=== PATIENT | female | born 1940 | race Caucasian/White ===

== ENCOUNTER 2017-02-04 03:34 | Emergency (ER) | payer OTHER ==
[~2017-02-04] VITALS: Ht 165.1 cm; Wt 88.5 kg
[~2017-02-04 03:34] MED LIST: ADVAIR HFA 45MC1 AER NASAL; ALBUTEROL2.5 MG/0.5 INH; AMLODIPINE BESY10 MG PO; AMOXICILLIN 50500 M1; ASPIRIN325 PO; ATENOLOL 25 MG25 M1; ATENOLOL 25 MG25 M1 PO; AVAPRO75 MG PO; BISACODYL SUPP10 MG RECTAL; CAPOTEN; CAPOTEN 50MG TA50 MG PO; CEFAZOLIN-2 GM/50 ML IV; CELEXA 20 MG TA20 M1 PO; CEPACOL SORE T1 EAC7 PO; CIPROFLOXACIN500 M1 PO; COLACE100 MG PO; COZAAR 50 MG TA50 M2 PO; DEXTROSE 5025 GM/SYR IV PUSH; DICLOFENAC SODI75 M1; DICLOFENAC SODI75 MG PO; DICLOFENAC SODIUM PO; DULERA 100 MCG/13 GM INH; ENOXAPARIN40 MG/0.1 SUBQ; FLAGYL500 MG PO; FLEXERIL PO; GABAPENTIN100 MG PO; GLIPIZIDE ER5 MG PO; GLUCAGEN1 MG IM; GLUCOPHAGE1000 MG; GLUCOSE1 EACH PO; GLUCOSE15 GM/59 M PO; HYDROCODONE-AP1 EAC6 PO; INVOKANA300 MG PO; IRBESARTAN-HCT1 EAC1 PO; IRBESARTAN300 MG PO; LANTUS SUBQ; LANTUS100 UNIT/M SUBQ; LANTUSSOLASTAR SUBQ; LEVEMIR SUBQ; LIPITOR10 MG PO; LIPITOR40 MG PO; LOPRESSOR100 M1 PO; LOPRESSOR100 MG PO; LOPRESSOR25; MAG-AL PLUS SUS30 ML PO; MAG-OXIDE400 MG PO; MECLIZINE HCL25 M1 PO; MEDROL4 MG PO; METOPROLOL; MILK OF MA2400 MG/10 PO; NEUROTIN; NORCO 5-325 TA1 EACH PO; NORFLEX100 MG PO; NOVOLOG100 UNIT/1 SUBQ; OMEPRAZOLE20 M2 PO; OMEPRAZOLE40 MG PO; ONDANSETRON HCL4 M2 PO; PANTOPRAZOLE SO40 M1 PO; PERCOCET PO; PLAVIX 75 MG TA75 M1 PO; PRAVACHOL; PRAVACHOL 20 MG20 M1 PO; PRILOSEC20 MG PO; PROAIR HFA8.5 GM INH; PROMETHAZINE; QVAR; QVAR HFA 440 MCG/UN1 INH; SENNA8.6 MG PO; SIMVASTATIN20 MG PO; TAGAMENT PO; TAGAMETTAB; TOPROL XL100 MG PO; TRAMADOL 50 MG50 MG PO; TYLENOL325 MG PO; ULTRAM 50MG TAB50 MG PO; VOLTAREN 50MG T50 MG PO; VOLTAREN75 MG PO; [UNRECOGNIZED DRUG - OTHER] INH; dulera; tramadol
[2017-02-04] MEDS ORDERED: MOBIC15 MG PO (03:44)
[2017-02-04] MEDS ORDERED: DICLOFENAC SODI25 MG PO (03:44)
[2017-02-04] MEDS ORDERED: NEURONTIN 300300 M1 PO (03:45)
[2017-02-04 04:22] LABS: ABSOLUTE NEUTROPHILS 4.8 thou/uL (1.4-8.2); BASOPHILS 1.2 % (0.0-2.0); EOSINOPHILS 5.7 % (0.0-3.0); HEMOGLOBIN 11.8 gm/dL (12.0-15.0); MCHC 33.7 g/dL (28.0-37.0); MCV 86.2 fL (80.0-100.0); MONOCYTES 6.3 % (1.0-8.0); PLATELET COUNT 276 thou/uL (150-400); POLYS 44.8 % (36.0-66.0); RBC 4.06 mil/uL (4.20-5.00); RDW 15.5 % (10.5-14.5); WBC 10.8 thou/uL (4.0-11.0)
[2017-02-04 04:27] LABS: MANUAL DIFF NO
[2017-02-04 04:34] LABS: CALCIUM 8.7 mg/dL (8.5-10.1); CREATININE 1.3 mg/dL (0.6-1.3); POTASSIUM 3.9 mmol/L (3.5-5.1)
[2017-02-04 04:39] LABS: ALBUMIN 3.3 g/dL (3.4-5.0); TOTAL BILIRUBIN 0.3 mg/dL (<0.1-1.0)
[2017-02-04] MEDS ORDERED: ZOFRAN ODT4 MG PO (04:47)
[2017-02-04 04:59] VITALS: BP 113/47
== END 2017-02-04 05:18 | disposition home or self-care (01) ==
LOC: ER 03:34
PROVIDERS: Emergency Medicine
DX: J18.8 Other pneumonia, unspecified organism (principal); E11.22 Type 2 diabetes mellitus with diabetic chronic kidney disease; I12.0 Hypertensive chronic kidney disease with stage 5 chronic kidney disease or end stage renal disease; N18.3 Chronic kidney disease, stage 3 (moderate); J45.909 Unspecified asthma, uncomplicated; Z86.73 Personal history of transient ischemic attack (TIA), and cerebral infarction without residual deficits; Z95.5 Presence of coronary angioplasty implant and graft; Z85.41 Personal history of malignant neoplasm of cervix uteri; Z90.710 Acquired absence of both cervix and uterus; Z86.79 Personal history of other diseases of the circulatory system; E78.5 Hyperlipidemia, unspecified; Z88.1 Allergy status to other antibiotic agents; Z91.018 Allergy to other foods; Z91.010 Allergy to peanuts; Z88.8 Allergy status to other drugs, medicaments and biological substances; F10.99 Alcohol use, unspecified with unspecified alcohol-induced disorder

== ENCOUNTER 2017-05-17 17:14 | Emergency (ER) | payer OTHER ==
[~2017-05-17] VITALS: Ht 165.1 cm; Wt 81.7 kg
--- NOTE | ~2017-05-17 | EKG ---
[address] [place] [address] ELECTROCARDIOGRAM REPORT Name: HOA LUNA Room #: [facility]#: [id number] Admission: 05/17/17 Attend Phys: Discharge: 05/17/17 Date of : 44 Report #: [id number] THIS REPORT FOR: //name// [facility] ED Test Date: 2017-05-17 Test Time: 17:34:30 Pat Name: HOA LUNA Department: Room: Gender: F Custodial Supervisor: [id number] : 1940 Requested By: Bessie Smith Order Number: [id number] MD: Efrain Ndiaye Measurements Intervals [place] Rate: 69 P: 66 [place]: 186 QRS: 21 QRSD: 91 T: 58 QT: 412 QTc: 442 Interpretive Statements Sinus rhythm Borderline low voltage, extremity leads Compared to ECG 01/02/2016 07:50:14 Myocardial infarct finding no longer present Electronically Signed On 05-18-2017 8:12:17 CDT by Efrain Ndiaye [email or web address] <ELECTRONICALLY SIGNED> By: Efrain Ndiaye MD 07/09/24 812 1734 173 Efrain Ndiaye MD /EDOUARD
[~2017-05-17 17:14] MED LIST changes: +DICLOFENAC SODI25 MG PO; +MOBIC15 MG PO; +NEURONTIN 300300 M1 PO; +ZOFRAN ODT4 MG PO
[2017-05-17 18:53] LABS: ABSOLUTE NEUTROPHILS 7.2 thou/uL (1.4-8.2); BASOPHILS 0.8 % (0.0-2.0); EOSINOPHILS 2.7 % (0.0-3.0); HEMATOCRIT 36.2 % (37.0-47.0); HEMOGLOBIN 11.7 gm/dL (12.0-15.0); LYMPHOCYTES 27.8 % (24.0-44.0); MCH 27.7 pg (26.0-34.0); MCHC 32.3 g/dL (28.0-37.0); MCV 85.7 fL (80.0-100.0); MONOCYTES 6.2 % (1.0-8.0); PLATELET COUNT 336 thou/uL (150-400); POLYS 62.5 % (36.0-66.0); RBC 4.22 mil/uL (4.20-5.00); RDW 15.7 % (10.5-14.5); WBC 11.5 thou/uL (4.0-11.0)
[2017-05-17 18:54] LABS: MANUAL DIFF NO
[2017-05-17 18:56] LABS: ANION GAP 9 mmol/L (7-16); BUN 26 mg/dL (7-18); CALCIUM 9.5 mg/dL (8.5-10.1); CHLORIDE 100 mmol/L (98-107); CO2 25 mmol/L (21-32); CREATININE 0.9 mg/dL (0.6-1.0); GLUCOSE 163 mg/dL (74-106); POTASSIUM 4.9 mmol/L (3.5-5.1); SODIUM 134 mmol/L (136-145)
[2017-05-17 19:04] LABS: TROPONIN-I < 0.04 ng/mL (<0.04-0.07)
[2017-05-17 19:34] VITALS: BP 117/54
== END 2017-05-17 19:35 | disposition home or self-care (01) ==
LOC: ER 17:14
PROVIDERS: Emergency Medicine
DX: R07.89 Other chest pain (principal); I12.9 Hypertensive chronic kidney disease with stage 1 through stage 4 chronic kidney disease, or unspecified chronic kidney disease; E11.22 Type 2 diabetes mellitus with diabetic chronic kidney disease; N18.3 Chronic kidney disease, stage 3 (moderate); J45.909 Unspecified asthma, uncomplicated; M19.90 Unspecified osteoarthritis, unspecified site; I25.2 Old myocardial infarction; E78.00 Pure hypercholesterolemia, unspecified; F10.99 Alcohol use, unspecified with unspecified alcohol-induced disorder; Z85.41 Personal history of malignant neoplasm of cervix uteri; Z90.710 Acquired absence of both cervix and uterus; Z86.73 Personal history of transient ischemic attack (TIA), and cerebral infarction without residual deficits; Z85.828 Personal history of other malignant neoplasm of skin; Z79.82 Long term (current) use of aspirin; Z79.4 Long term (current) use of insulin; Z88.1 Allergy status to other antibiotic agents; Z91.010 Allergy to peanuts; Z91.018 Allergy to other foods; Z88.8 Allergy status to other drugs, medicaments and biological substances

== ENCOUNTER 2018-04-21 09:16 | Emergency (ER) | payer OTHER ==
[~2018-04-21] VITALS: Ht 162.6 cm; Wt 81.7 kg
--- NOTE | ~2018-04-21 | EKG ---
[address] [address] ELECTROCARDIOGRAM REPORT Name: HOA LUNA Room #: [facility]#: [id number] Admission: 04/21/18 Attend Phys: Discharge: 04/21/18 Date of : 44 Report #: [id number] THIS REPORT FOR: //name// [facility] ED Test Date: 2018-04-21 Test Time: 09:20:42 Pat Name: HOA LUNA Department: Room: Gender: F Orthodontist Small Business Owner: Harjit TERRY RN : 1940 Requested By: Rolly De Oliveira Order Number: [id number] MD: Cameron Lizarraga Measurements Intervals [place] Rate: 77 P: 61 [place]: 176 QRS: 18 QRSD: 97 T: 62 QT: 390 QTc: 442 Interpretive Statements Sinus rhythm Normal tracing Compared to ECG 05/17/2017 17:34:30 No significant changes Electronically Signed On 04-21-2018 15:36:31 CDT by Cameron Lizarraga [email or web address] <ELECTRONICALLY SIGNED> By: Cameron Lizarraga MD, [facility] 04/21/18 1536 0920 9 Cameron Lizarraga MD, FACC /EPI
[2018-04-21 09:41] LABS: ABSOLUTE NEUTROPHILS 6.9 thou/uL (1.4-8.2); BASOPHILS 0.5 % (0.0-2.0); EOSINOPHILS 4.7 % (0.0-3.0); HEMATOCRIT 34.2 % (37.0-47.0); HEMOGLOBIN 11.5 gm/dL (12.0-15.0); LYMPHOCYTES 24.8 % (24.0-44.0); MCH 30.1 pg (26.0-34.0); MCHC 33.7 g/dL (28.0-37.0); MCV 89.5 fL (80.0-100.0); MONOCYTES 5.7 % (1.0-8.0); PLATELET COUNT 258 thou/uL (150-400); POLYS 64.3 % (36.0-66.0); RBC 3.82 mil/uL (4.20-5.00); RDW 14.5 % (10.5-14.5); WBC 10.8 thou/uL (4.0-11.0)
[2018-04-21 09:46] LABS: ANION GAP 8 mmol/L (7-16); BUN 28 mg/dL (7-18); CALCIUM 9.6 mg/dL (8.5-10.1); CHLORIDE 103 mmol/L (98-107); CO2 29 mmol/L (21-32); CREATININE 0.9 mg/dL (0.6-1.0); GLUCOSE 128 mg/dL (74-106); POTASSIUM 3.7 mmol/L (3.5-5.1); SODIUM 140 mmol/L (136-145)
[2018-04-21 09:54] LABS: ALBUMIN 3.6 g/dL (3.4-5.0); LIPASE 128 U/L (73-393); SGOT 16 U/L (15-37); SGPT 17 U/L (30-65); TOTAL BILIRUBIN 0.3 mg/dL (<0.1-1.0); TOTAL PROTEIN 7.3 g/dL (6.4-8.2); TROPONIN-I < 0.04 ng/mL (<0.06)
[2018-04-21 10:45] LABS: URINE BILIRUBIN NEGATIVE (Negative); URINE BLOOD NEGATIVE (Negative); URINE CLARITY CLEAR; URINE COLOR YELLOW; URINE GLUCOSE-RANDOM* NEGATIVE (Negative); URINE KETONES NEGATIVE (Negative); URINE LEUKOCYTES-REFLEX NEGATIVE (Negative); URINE NITRITE-REFLEX NEGATIVE (Negative); URINE PROTEIN (DIPSTICK) NEGATIVE (Negative); URINE SPECIFIC GRAVITY 1.015 (1.005-1.035)
[2018-04-21] MEDS ORDERED: SENNA-DOCUSATE1 EACH PO (11:45)
[2018-04-21 12:18] VITALS: BP 168/80
== END 2018-04-21 12:18 | disposition home or self-care (01) ==
LOC: ER 09:16
PROVIDERS: Emergency Medicine
DX: K59.00 Constipation, unspecified (principal); J45.909 Unspecified asthma, uncomplicated; M19.90 Unspecified osteoarthritis, unspecified site; M10.9 Gout, unspecified; I25.10 Atherosclerotic heart disease of native coronary artery without angina pectoris; E78.00 Pure hypercholesterolemia, unspecified; I12.9 Hypertensive chronic kidney disease with stage 1 through stage 4 chronic kidney disease, or unspecified chronic kidney disease; N18.3 Chronic kidney disease, stage 3 (moderate); E11.22 Type 2 diabetes mellitus with diabetic chronic kidney disease; Z86.73 Personal history of transient ischemic attack (TIA), and cerebral infarction without residual deficits; Z90.710 Acquired absence of both cervix and uterus; Z85.828 Personal history of other malignant neoplasm of skin; Z88.1 Allergy status to other antibiotic agents; Z91.018 Allergy to other foods; Z91.010 Allergy to peanuts; Z88.8 Allergy status to other drugs, medicaments and biological substances

== ENCOUNTER 2018-05-19 06:54 | Observation (INO) | payer OTHER ==
[~2018-05-19] VITALS: Ht 162.6 cm; Wt 80.3 kg
--- NOTE | ~2018-05-19 | CATHLAB ---
[facility] [address] [place] [address] INVASIVE PROCEDURE REPORT Name: HOA LUNA Room #: 208-P [facility] IN ..#: [id number] Admission: 05/19/18 Attend Phys: Davi Mary, Discharge: 05/20/18 Date of : 44 Date of Service: 05/23/18 1831 Report #: [id number] THIS REPORT FOR: //name// APPROVED REPORT Study performed: 05/19/2018 07:19:22 Procedure Narrative The patient was brought electively to the Cardiac Catheterization Laboratory and was prepped and draped in a sterile manner. The Right Groin^ was infiltrated with 1% Lidocaine subcutaneous anesthesia. A PINNACLE 6FR Sheath #[id number] sheath was inserted into the RFA^. Coronary angiography was performed using coronary diagnostic catheters. The right coronary system was accessed and visualized with a JR 4 catheter. The left coronary system was accessed and visualized with a JL 4 catheter. The left ventricle was accessed and visualized with a Pigtail catheter. Left ventriculogram was performed in DANIELLE projection. An aortogram of the abdominal aorta was performed. Closure device was deployed with a 6 Fr Mynx. The patient tolerated the procedure well and there were no complications associated with the procedure. There was no hematoma. Intraoperative Conscious Sedation Sedation start time: 08:12 Case end Time: 08:58 Fentanyl 50 mcg Versed 2 mg Fluoro Time: 12.37 minutes Dose: DAP 05767 cGycm2 1686 mGy Contrast Type and Amount: Visipaque 190 ml Hemodynamics The aortic pressure is 150/63 mmHg with a mean of 73 mmHg. The left ventricular pressure is 171/15 mmHg with a mean of mmHg. The left ventricular end diastolic pressure is 25 mmHg. PCI Technique Lesion Percutaneous coronary intervention was performed on the proximal left anterior descending artery segment. A LAUNCHER 6FR EBU 3.75 #[id number] Guide Catheter was used to engage the ostium. A Luge Wire .014 x 182CM #[id number] Interventional Guidewire was used to cross the lesion. BALLOON DILATION A Balloon catheter Sprinter OTW 2.5 x 12 #[id number] was inserted and [facility] [place] [place] [address] INVASIVE PROCEDURE REPORT Name: HOA LUNA Room #: 208-P [facility] IN .R.#: [id number] Admission: 05/19/18 Attend Phys: Davi Mary, Discharge: 05/20/18 Date of : 44 Date of Service: 05/23/18 1831 Report #: [id number] inflated up to 8.00atm for 24seconds. Additional Inflation: 12.00atm for 21seconds. STENT DEPLOYMENT A drug-eluting stent RESOLUTE OTW 2.5 X 14 #[id number] was inserted and inflated up to 16.00atm for 30seconds. Conclusion #1 successful PTCA stent of the proximal LAD with a 2.5 x 14 resolute drug-eluting stent from 90% to 0% SELMA grade 3 flow. 60-70% mid LAD lesion continue to treat medically. Diffuse disease at the apex #2 left main free of disease giving rise to the LAD and circumflex #3 large dominant circumflex system first OM diffusely disease relatively small 70% proximal second OM also moderately disease larger in the distal segment well preserved in the circumflex in the AV groove is mildly diseased #4 small nondominant right coronary artery #5 left ventricle with mild diffuse abnormalities overall ejection fraction near normal 50-55% #6 abdominal aortogram evidence of an aortic stent graft. Moderate restenosis in the left renal artery and right renal artery and a right iliac aneurysm that does not appear to have been stented Recommendations and plan: Continue aggressive risk factor modification dual antiplatelet therapy for LAD stent. We'll obtain noninvasive imaging of the aortoiliac renal system with moderate restenosis in left renal artery and a right iliac aneurysm noted on angiogram. <ELECTRONICALLY SIGNED> By: Davi Mary MD, FACC 05/23/181830 30 30 Davi Mary MD, FACC /INF
--- NOTE | ~2018-05-19 | H ---
[facility] [place] [address] HISTORY AND PHYSICAL Name: HOA LUNA Room #: 208-P [facility] Amy M.Jaime#: [id number] Admission: 05/19/18 Attend Phys: Davi Mary MD, Discharge: 05/20/18 Date of : 44 Report #: [id number] THIS REPORT FOR: //name// CC: Davi Kinney MD DATE OF SERVICE: 05/19/2018 HISTORY OF PRESENT ILLNESS: The patient is a 78-year-old female admitted today for cardiac catheterization. The patient has history of stable coronary artery disease, but has a recent nuclear stress test which is suggesting significant anterior wall ischemia. She is relatively asymptomatic. Occasionally, does have some pressure and shortness of breath. She has a history of an angioplasty back in 1999. Cardiac catheterization in March of last year had a proximal LAD lesion and then the higher grade mid vessel lesion, relatively small and calcified and was not intervened on, a large dominant left system with mild disease, 40% ramus branch and preserved LV function. Had had a prior aortic stent graft and a left renal stent was placed at that setting for high-grade renal artery stenosis. Has had some hypertension and suggest possible restenosis of that left renal stent. She has been maintained on aspirin, Plavix, Zetia, gabapentin, irbesartan, Lantus, meclizine, metoprolol 100 b.i.d. which I did decrease to 100 a day, omeprazole. PAST MEDICAL HISTORY: Positive for coronary artery disease, renal artery stenosis, aortic stent graft repair, DJD, history of a CVA, diabetes, hypercholesterolemia, limited infarct with remote angioplasty, hysterectomy. FAMILY HISTORY: Mother had premature coronary disease. ALLERGIES: CIPRO, FELDENE and PANTOPRAZOLE. SOCIAL HISTORY: No alcohol or tobacco. She has boarders in her house. She is . She does have sons involved with her care. Some caffeine. No alcohol or tobacco. REVIEW OF SYSTEMS: Essentially negative except for stated above. LABORATORY DATA: Platelets are 247, H and H 11 and 33.9. Creatinine 0.8. PHYSICAL EXAMINATION: VITAL SIGNS: Blood pressure is 158/60, pulse is 60 and regular. HEENT: Eyes reveal xanthelasmas. Pharynx is clear. NECK: Shows preserved upstrokes without JVD or bruits. LUNGS: Clear. [facility] [address] [place] [address] HISTORY AND PHYSICAL Name: HOA LUNA Room #: 208-P [facility] Amy Bautista#: [id number] Admission: 05/19/18 Attend Phys: Davi Mary MD, Discharge: 05/20/18 Date of : 44 Report #: [id number] CARDIAC: Regular rate and rhythm; S1, S2. No significant murmur. ABDOMEN: Soft. No HSM or abdominal bruit. EXTREMITIES: Reveal trace nonpitting edema. NEUROLOGIC: Nonfocal. SKIN: Warm and dry without xanthoma or ulcer, mild venous stasis changes. MUSCULOSKELETAL: Generalized arthritic changes. NEUROLOGIC: Intact. ASSESSMENT: 1. Coronary artery disease with abnormal nuclear test suggesting progression of left anterior descending disease. 2. Hypertension. 3. Hypercholesterolemia. 4. Diabetes. 5. Renal artery stenosis. 6. Status post aortic stent graft repair. 7. History of transient ischemic attack without residual. RECOMMENDATIONS AND PLAN: We will proceed to the catheterization to delineate the anatomy. Also renal angiography to evaluate for renal in-stent restenosis. Intervention is indicated. Risks, benefits, alternatives were discussed with the patient. Thank you for asking me to assist in the care of this patient. <ELECTRONICALLY SIGNED> By: Davi Mary MD, FACC 05/23/18 0942 0815 0843 Davi Mary MD, FACC /nt
--- NOTE | ~2018-05-19 | EKG ---
[address] [place] [address] ELECTROCARDIOGRAM REPORT Name: HOA LUNA Room #: 208-[facility] M.R.#: [id number] Admission: 05/19/18 Attend Phys: Davi Mary MD, Discharge: Date of : 44 Report #: [id number] THIS REPORT FOR: //name// [facility] Test Date: 2018-05-20 Test Time: 06:39:59 Pat Name: HOA LUNA Department: Room: 208 Gender: F Pediatric Cns: MERCEDEZ : 1940 Requested By: Davi Mary Order Number: [id number] MD: Cameron Lizarraga Measurements Intervals [place] Rate: 62 P: 70 MT: 188 QRS: 47 QRSD: 102 T: 58 QT: 423 QTc: 430 Interpretive Statements Sinus rhythm No significant abnormality Compared to ECG 05/09/2018 13:40:09 Sinus bradycardia no longer present Electronically Signed On 05-20-2018 8:46:39 CDT by Cameron Lizarraga [email or web address] <ELECTRONICALLY SIGNED> By: Cameron Lizarraga MD, [facility] 05/20/18 0846 Cameron Lizarraga MD, [facility] /EPI
[~2018-05-19 06:54] MED LIST changes: +PROTONIX40 M1 PO; +SENNA-DOCUSATE1 EACH PO
[2018-05-19] MEDS ORDERED: OMEPRAZOLE 20 M20 M1 PO (07:14)
[2018-05-19] MEDS ORDERED: ZETIA10 MG PO (07:15)
[2018-05-19] MEDS ORDERED: NEURONTIN 300300 M1 PO (07:15)
[2018-05-19] MEDS ORDERED: MAGOX 400400 MG PO (07:16)
[2018-05-19 07:46] LABS: HEMATOCRIT 33.9 % (37.0-47.0); HEMOGLOBIN 11.4 gm/dL (12.0-15.0); MCH 29.9 pg (26.0-34.0); MCHC 33.7 g/dL (28.0-37.0); MCV 88.5 fL (80.0-100.0); RBC 3.83 mil/uL (4.20-5.00); WBC 7.2 thou/uL (4.0-11.0)
[2018-05-19 07:52] VITALS: BP 125/60
[2018-05-19 07:52] LABS: CALCIUM 9.1 mg/dL (8.5-10.1); CREATININE 0.8 mg/dL (0.6-1.0); POTASSIUM 3.3 mmol/L (3.5-5.1)
[2018-05-19 11:15] VITALS: BP 139/53
[2018-05-19 16:10] VITALS: BP 137/63
[2018-05-19 19:28] VITALS: BP 114/58
[2018-05-20 00:22] VITALS: BP 136/56
[2018-05-20 03:55] VITALS: BP 134/58
[2018-05-20 04:12] LABS: CALCIUM 8.5 mg/dL (8.5-10.1); CREATININE 0.8 mg/dL (0.6-1.0); POTASSIUM 3.4 mmol/L (3.5-5.1)
[2018-05-20 04:28] LABS: ABSOLUTE NEUTROPHILS 4.8 thou/uL (1.4-8.2); BASOPHILS 0.6 % (0.0-2.0); HEMATOCRIT 31.9 % (37.0-47.0); HEMOGLOBIN 10.8 gm/dL (12.0-15.0); LYMPHOCYTES 30.8 % (24.0-44.0); MCHC 33.8 g/dL (28.0-37.0); MCV 88.7 fL (80.0-100.0); MONOCYTES 7.4 % (1.0-8.0); PLATELET COUNT 210 thou/uL (150-400); POLYS 56.2 % (36.0-66.0); WBC 8.5 thou/uL (4.0-11.0)
[2018-05-20 07:48] VITALS: BP 149/66
[2018-05-20] MEDS ORDERED: ASPIRIN325 PO (08:15)
[2018-05-20 10:21] VITALS: BP 149/66
[2018-05-20 11:22] VITALS: BP 149/66
== END 2018-05-20 11:27 | disposition home or self-care (01) ==
LOC: CATH 06:54 → 2N 11:28 → CATH 13:22 → ENTRNSPT 05-20 11:09 → EDTRNSPTSTS 05-20 11:12 → 2N 05-20 11:27
PROVIDERS: Internal Medicine Cardiovascular Disease
DX: I25.10 Atherosclerotic heart disease of native coronary artery without angina pectoris (principal); I10 Essential (primary) hypertension; M19.90 Unspecified osteoarthritis, unspecified site; E11.9 Type 2 diabetes mellitus without complications; E78.00 Pure hypercholesterolemia, unspecified; I71.4 Abdominal aortic aneurysm, without rupture; I70.1 Atherosclerosis of renal artery; I65.29 Occlusion and stenosis of unspecified carotid artery; Z79.4 Long term (current) use of insulin; Z95.2 Presence of prosthetic heart valve; Z79.82 Long term (current) use of aspirin; Z90.710 Acquired absence of both cervix and uterus; Z96.89 Presence of other specified functional implants; Z86.73 Personal history of transient ischemic attack (TIA), and cerebral infarction without residual deficits

== ENCOUNTER 2018-12-03 13:59 | Inpatient (IN) | payer OTHER ==
[~2018-12-03] VITALS: Ht 162.6 cm; Wt 82.3 kg
--- NOTE | ~2018-12-03 | HC ---
[facility] [place] [address] CONSULTATION Name: HOA LUNA Room #: 205-P ADM IN M.R.#: [id number] Admission: 12/03/18 Attend Phys: Carlos Blanca MD Discharge: Date of : 44 Report #: [id number] THIS REPORT FOR: //name// CC: Carlos Kinney Cardiology Consultation REASON FOR CONSULTATION: Ventricular tachycardia. HISTORY OF PRESENT ILLNESS: This is a patient of Dr. Moore, who has an extensive cardiac history including coronary artery disease, status post prior MIs with a PCI in 1999. Her most recent intervention was in 05/2018 for a proximal LAD lesion that underwent drug-eluting stent placement. At the time of that catheterization, there was also note of moderate disease in the RCA and circumflex. She was last seen by Dr. Mary in August, at which time she underwent a nuclear stress test showing an old basal lateral infarct and some chronic apical ischemia as previously documented. Yesterday, she was in her usual state of health. She went to the [employer] and while driving there, she started feeling palpitations. She got to the [employer] and then she had a severe episode of palpitations with near syncope. She tried to get to her car, but prior to passing out, she was grabbed and placed in the chair. Ambulance came and found that she was in sustained ventricular tachycardia. They discussed shocking her, but they gave her a dose of IV lidocaine, which terminated the arrhythmia. Her VT was right bundle-branch block transitioned in V4 and was negative in leads II, III, aVF. The rate was 190 beats per minute. She did have some associated chest pain with the palpitations, but this resolved as soon as she was back to normal rhythm. She denies any PND or orthopnea. REVIEW OF SYSTEMS: A 12-point review of systems: GENERAL: No fevers or chills. HEENT: No blurred vision. CARDIOVASCULAR: As above. PULMONARY: No productive cough. GASTROINTESTINAL: No nausea or vomiting. GENITOURINARY: No dysuria. MUSCULOSKELETAL: No myalgias or arthralgias. ENDOCRINE: No heat or cold intolerance. NEUROLOGIC: No focal weakness. PAST MEDICAL HISTORY: 1. Coronary artery disease as described above. 2. Peripheral vascular disease, status post AAA stent graft in 2012. 3. Prior carotid endarterectomy. 4. Prior left renal stent. 5. Hypertension. [address] [address] CONSULTATION Name: HOA LUNA Room #: 205-P [facility] IN .R.#: [id number] Admission: 12/03/18 Attend Phys: Carlos Blanca MD Discharge: Date of : 44 Report #: [id number] 6. Hyperlipidemia. 7. TIA. 8. Diabetes mellitus. SOCIAL HISTORY: Does not smoke. FAMILY HISTORY: Noncontributory. ALLERGIES: Have been reviewed. MEDICATIONS: Include albuterol, amlodipine, which has been stopped previously; aspirin, atorvastatin, cetirizine, gabapentin, hydrocodone, Lantus, meclizine, metoprolol, mometasone, nitroglycerin, Plavix, and Zetia. PHYSICAL EXAMINATION: VITAL SIGNS: Temperature is 36.7, pulse 55, respiration 16, blood pressure 127/59, sats 99%. GENERAL: She is in no acute distress. HEENT: Oropharynx is clear. NECK: Supple. No thyromegaly or carotid bruits. HEART: Regular rate and rhythm with no murmurs, rubs or gallops. LUNGS: Clear to auscultation bilaterally. ABDOMEN: Soft, nontender, nondistended, no hepatosplenomegaly. EXTREMITIES: There is no clubbing, cyanosis or edema. Cranial nerves 2-12 are intact. LABORATORY DATA: White count 9, hemoglobin 9, platelets 240. Chemistry: Sodium 141, potassium 3.8, BUN 17, creatinine 0.8, magnesium 1.3. Troponins negative times 2. DIAGNOSTIC DATA: Her 12-lead EKG shows normal sinus rhythm, normal intervals, and no ischemic changes. Her EKG today shows sinus bradycardia, heart rate 54 beats per minute. Her telemetry shows no recurrent ventricular tachycardia. ASSESSMENT AND PLAN: 1. Sustained monomorphic ventricular tachycardia. 2. Coronary artery disease. 3. Ischemic cardiomyopathy. 4. Peripheral vascular disease. 5. Hypertension. 6. Diabetes. SUMMARY: The patient is a 78-year-old with documented sustained monomorphic ventricular tachycardia and presyncope/syncope with history of an ischemic cardiomyopathy, status post prior infarct. Based on these findings, I have recommended that she undergo ICD implantation for secondary prevention of sudden [address] [address] CONSULTATION Name: HOA LUNA Room #: 205-P ADM IN M.R.#: [id number] Admission: 12/03/18 Attend Phys: Carlos Blanca MD Discharge: Date of : 44 Report #: [id number] cardiac . Given her sinus bradycardia, we will recommend dual chamber device. We have discussed the details of the procedure including the risks, which include, but are not limited to bleeding, infection, vascular damage, cardiac perforation, and pneumothorax. She understands these risks and is willing to proceed. Given no ischemic symptoms, I do not believe coronary interventions are required at this time. We will check an echocardiogram tomorrow. By: 1014 [id number] Efrain Ndiaye MD /nt
[~2018-12-03 13:59] MED LIST changes: +MAGOX 400400 MG PO; +OMEPRAZOLE 20 M20 M1 PO; +ZETIA10 MG PO
[2018-12-03 14:00] VITALS: BP 119/60
[2018-12-03] MEDS ORDERED: BASAGLAR K100 UNIT/1 SUBQ (14:10)
[2018-12-03 14:22] LABS: ABSOLUTE NEUTROPHILS 7.8 thou/uL (1.4-8.2); BASOPHILS 0.5 % (0.0-2.0); EOSINOPHILS 0.2 % (0.0-3.0); HEMATOCRIT 30.4 % (37.0-47.0); HEMOGLOBIN 9.6 gm/dL (12.0-15.0); LYMPHOCYTES 13.3 % (24.0-44.0); MCH 26.8 pg (26.0-34.0); MCHC 31.5 g/dL (28.0-37.0); MCV 85.1 fL (80.0-100.0); MONOCYTES 2.6 % (1.0-8.0); PLATELET COUNT 240 thou/uL (150-400); POLYS 83.4 % (36.0-66.0); RBC 3.57 mil/uL (4.20-5.00); RDW 16.7 % (10.5-14.5); WBC 9.4 thou/uL (4.0-11.0)
[2018-12-03 14:25] LABS: ANION GAP 10 mmol/L (7-16); BUN 23 mg/dL (7-18); CALCIUM 8.6 mg/dL (8.5-10.1); CHLORIDE 105 mmol/L (98-107); CO2 23 mmol/L (21-32); CREATININE 1.1 mg/dL (0.6-1.0); GLUCOSE 197 mg/dL (74-106); POTASSIUM 4.6 mmol/L (3.5-5.1); SODIUM 138 mmol/L (136-145)
[2018-12-03 14:34] LABS: TROPONIN-I <0.06 ng/mL (<0.06)
[2018-12-03 14:56] LABS: ALBUMIN 3.4 g/dL (3.4-5.0); DIRECT BILIRUBIN < 0.1 mg/dL (<0.1-0.3); SGOT 22 U/L (15-37); SGPT 19 U/L (30-65); TOTAL BILIRUBIN 0.3 mg/dL (<0.1-1.0); TOTAL PROTEIN 7.1 g/dL (6.4-8.2)
[2018-12-03 16:29] VITALS: BP 130/54
[2018-12-03 17:33] VITALS: BP 146/64
[2018-12-03 18:00] VITALS: BP 151/65
--- NOTE | 2018-12-03 18:45 | NUR ---
PT ADMITTED TO CCU THIS EVENING. STATES SHE WAS AT [employer] AND STARTED HAVING CHEST PAIN AND DIZZINESS AND NEARLY PASSED OUT. CONTINUES TO HAVE SLIGHT CHEST PRESSURE 3/10 BUT THE DIZZINESS RESOLVED. PT PLACED IN FALL PRECAUTIONS. PT REQUESTING TO EAT DINNER. NPO AT THIS TIME. DR TWILA ISLAS. CONSULT PLACED TO CARDIOLOGY ORDERED. WILL CONTINUE TO MONITOR PATIENT.
--- NOTE | 2018-12-03 20:11 | NUR ---
CALLED FEED PROJECT ENGINEER SHAKIR ENGEL TO DISCUSS PATIENTS DIET. I ALSO INFORMED HER THAT PATIENT STILL HAS CHEST TIGHTNESS WITH SCORE OF 3-4/10. SHE ORDERED TOHE FOLLOWING: CARB CONTROL 1800 ADA DIET, OXYCODONE IR 5 MG PO. EVERY 4 HOURS PRN FOR PAIN, NITROGLYCERINE PROTOCOL EVERY 5 MINUTES PER PROTOCOL. READBACK DONE AND ORDERS ENTERED.
[2018-12-03 20:15] VITALS: BP 149/64
--- NOTE | 2018-12-03 23:49 | NUR ---
22:55>CALLED DR CABRERA'S ANSWERING SERVICE. DR CABRERA CALLED BACK. I INFORMED HIM OF THE REFERRAL. I ALSO RELAYED TO HIM THAT PATIENT STILL HAS CHEST TIGHTNESS FROM 04/17 TO 01/15. HEADACHE FROM 01/15 TO 11/17 AFTER OXYCODONE. PATIENT DOES NOT PREFER NITROGLYCERIN SL DUE TO HER HEADACHE. TROPONIN RESULT WAS RELAYED ALSO. HE SAID THAT HE WILL SEE THE PATIENT IN THE MORNING.
[2018-12-04 00:12] VITALS: BP 130/64
[2018-12-04 04:45] VITALS: BP 147/69
[2018-12-04 05:56] LABS: ANION GAP 6 mmol/L (7-16); BUN 17 mg/dL (7-18); CALCIUM 9.1 mg/dL (8.5-10.1); CHLORIDE 105 mmol/L (98-107); CO2 30 mmol/L (21-32); CREATININE 0.8 mg/dL (0.6-1.0); GLUCOSE 91 mg/dL (74-106); MAGNESIUM 1.3 mg/dL (1.8-2.4); POTASSIUM 3.8 mmol/L (3.5-5.1); SODIUM 141 mmol/L (136-145); TROPONIN-I <0.06 ng/mL (<0.06)
--- NOTE | 2018-12-04 06:48 | NUR ---
06:47>relayed Mg result (1.3) to ISAMAR ENGEL, SHE SAID SHE WILL PUT AN ORDER FOR REPLACEMENT.
[2018-12-04 07:40] VITALS: BP 127/59
[2018-12-04 11:40] VITALS: BP 149/63
[2018-12-04 15:50] VITALS: BP 119/77
--- NOTE | 2018-12-04 18:36 | NUR ---
PATIENT ALERT AND ORIENTED X4, SINUS BRADYCARDIA AT REST, BIGEMINY AND V-TACH WITH ACTIVITY. CARDIOLOGY NOTIFIED, WILL START PATIENT ON AMIODARONE DRIP. ON ROOM AIR. UP WITH STANDBY ASSISTANCE. PATIENT UPDATED ON THE PLAN OF CARE, NO SIGNS OF ACUTE DISTRESS NOTED AT THIS TIME. WILL CONTINUE TO MONITOR.
[2018-12-04 19:47] VITALS: BP 159/63
--- NOTE | 2018-12-04 20:44 | NUR ---
20:20>patient refused Amiodarone drip. She said that she is taking full responsibility aurea her refusal and aware of the consequences. She was reading medline literature at the time when I WAS TALKING TO HER. She verbalized that her family has history of reaction to iodine in which she read that there is an iodine ingredient in the Amiodarone. She said that she is feeling the side effect like dizziness, she was having chest pressure worst wtih breathing and nausea. She also verbalized that Amiodarone has interaction with the Plavix that she is taking. She also said that she can taste the iodine from the Amiodarone. sHE ALSO SAID THAT IF SHE IS STILL ALIVE IN THE MORNING SHE STILL WANTS THE PLANNED PROCEDURE AND STILL WANTS HER DOCTOR TO DO IT. 20:36>called answering service. Dr Botello called back. Relayed to him what the patient said. He ordered the following: Sotalol 120 mg p.o. now. Zofran 8 mg IV EVERY 8 HOURS prn for nausea. Ativan 1 mg p.o. every 6 hours foranxiety. readback done and orders entered. Dr Botello ALSO SAID TO R4ELAY TO THE PATIENT THAT THERE IS NPO OTHER MEDS TO GIVE FOR HER EXCEPT AMIO DRIP AND THAT THERE IS NO INTERACTION WITH PLAVIX, HE SAID HE WILL TALK TO HER IN THE MORNING.
[2018-12-05 06:29] VITALS: BP 126/54
[2018-12-05 07:40] VITALS: BP 148/70
--- NOTE | 2018-12-05 08:40 | EKG ---
[address] [address] ELECTROCARDIOGRAM REPORT Name: HOA LUNA Room #: 205-P ADM IN M.R.#: [id number] Admission: 12/03/18 Attend Phys: Carlos Blanca MD Discharge: Date of : 44 Report #: [id number] THIS REPORT FOR: //name// [facility] ED Test Date: 2018-12-03 Test Time: 14:01:13 Pat Name: HOA LUNA Department: Room: [facility] Gender: F Flavor Tank Tender: HILLARY : 1940 Requested By: Santiago Long Order Number: [id number] MD: Cameron Lizarraga Measurements Intervals [place] Rate: 71 P: 72 [place]: 187 QRS: 49 QRSD: 92 T: 54 QT: 394 QTc: 429 Interpretive Statements Sinus rhythm Normal tracing Compared to ECG 05/20/2018 06:39:59 No significant changes Electronically Signed On 12-05-2018 8:40:07 IOS ARCHITECT by Cameron Lizarraga [email or web address] <ELECTRONICALLY SIGNED> By: Cameron Lizarraga MD, [facility] 12/05/18 0840 1401 00 Cameron Lizarraga MD, FACC /EPI
--- NOTE | 2018-12-05 08:45 | EKG ---
[address] [address] ELECTROCARDIOGRAM REPORT Name: HOA LUNA Room #: 205- ADM IN M.R.#: [id number] Admission: 12/03/18 Attend Phys: Carlos Blanca MD Discharge: Date of : 44 Report #: [id number] THIS REPORT FOR: //name// [facility] Test Date: 2018-12-04 Test Time: 06:28:36 Pat Name: HOA LUNA Department: Room: 205 Gender: F Interior Decorator Paperhanging: : 1940 Requested By: Carlos Blanca Order Number: [id number] MD: Cameron Lizarraga Measurements Intervals [place] Rate: 54 P: 77 [place]: 190 QRS: 46 QRSD: 99 T: 35 QT: 433 QTc: 411 Interpretive Statements Sinus bradycardia Otherwise normal tracing Compared to ECG 05/20/2018 06:39:59 No significant changes Electronically Signed On 12-05-2018 8:44:49 PERSONNEL QUALITY ASSURANCE AUDITOR by Cameron Lizarraga [email or web address] <ELECTRONICALLY SIGNED> By: Cameron Lizarraga MD, [facility] 12/05/18 0844 7 Cameron Lizarraga MD, FACC /EPI
--- NOTE | 2018-12-05 08:48 | EKG ---
[address] [place] [address] ELECTROCARDIOGRAM REPORT Name: HOA LUNA Room #: 205- ADM IN M.R.#: [id number] Admission: 12/03/18 Attend Phys: Carlos Blanca MD Discharge: Date of : 44 Report #: [id number] THIS REPORT FOR: //name// [facility] Test Date: 2018-12-04 Test Time: 13:54:49 Pat Name: HOA LUNA Department: Room: 205 P Gender: F Intervention Teacher: GRANT : 1940 Requested By: Efrain Ndiaye Order Number: [id number] MD: Cameron Lizarraga Measurements Intervals [place] Rate: 56 P: 80 [place]: 186 QRS: 31 QRSD: 94 T: 32 QT: 429 QTc: 415 Interpretive Statements Sinus bradycardia Borderline low voltage, extremity leads Compared to ECG 05/20/2018 06:39:59 No significant changes Electronically Signed On 12-05-2018 8:48:35 SPINDLE TESTER by Cameron Lizarraga [email or web address] <ELECTRONICALLY SIGNED> By: Cameron Lizarraga MD, [facility] 12/05/18 0848 1354 1354 Cameron Lizarraga MD, FAC /EPI
[2018-12-05 08:58] LABS: ABSOLUTE NEUTROPHILS 5.5 thou/uL (1.4-8.2); BASOPHILS 0.9 % (0.0-2.0); EOSINOPHILS 5.3 % (0.0-3.0); HEMOGLOBIN 10.4 gm/dL (12.0-15.0); LYMPHOCYTES 33.9 % (24.0-44.0); MCH 27.1 pg (26.0-34.0); MCHC 31.6 g/dL (28.0-37.0); MCV 85.7 fL (80.0-100.0); MONOCYTES 5.6 % (1.0-8.0); PLATELET COUNT 280 thou/uL (150-400); POLYS 54.3 % (36.0-66.0); RBC 3.85 mil/uL (4.20-5.00); RDW 17.2 % (10.5-14.5)
[2018-12-05 09:07] LABS: ALBUMIN 3.6 g/dL (3.4-5.0); CALCIUM 9.6 mg/dL (8.5-10.1); CREATININE 0.8 mg/dL (0.6-1.0); POTASSIUM 4.4 mmol/L (3.5-5.1); TOTAL BILIRUBIN 0.2 mg/dL (<0.1-1.0); TOTAL PROTEIN 6.8 g/dL (6.4-8.2)
--- NOTE | 2018-12-05 10:29 | NUR ---
IN ROOM WITH PHYSICIANS WHILE TALKING TO PT. PT NOTIFIED PHYSICIANS THAT AT THIS TIME SHE DID NOT WANT THE PACEMAKER. PHYSICIAN ASKED PT IF HE COULD CALL ANY FAMILY TO DISCUSS, PT AGREED FOR DOCTOR TO CALL SON. PT NOTIFED THIS NURSE THAT SHE WANTS TO STAY A FULL CODE AT THIS TIME DURING THIS VISIT. DOCTOR AGAIN IN ROOM TO TALK WITH PT AND PT GAVE DOCTOR HER SONS TWO PHONE NUMBERS TO CALL. WILL HELP CONTACT FAMILY TODAY.
--- NOTE | 2018-12-05 11:35 | 2DMMODE ---
[facility] [address] [place] [address] 2 D/M-MODE ECHOCARDIOGRAM Name: HOA LUNA Room #: 205-P ADM IN M.R.#: [id number] Admission: 12/03/18 Attend Phys: Carlos Blanca MD Discharge: Date of : 44 Date of Service: 12/05/18 1135 Report #: [id number] THIS REPORT FOR: //name// APPROVED REPORT Study performed: 12/05/2018 09:05:12 EXAM: Comprehensive 2D, Doppler, and color-flow Echocardiogram Patient Location: Bedside Room #: [facility] [place] [facility] [place] Status: routine BSA: 1.88 HR: 53 bpm BP: 126/54 mmHg Rhythm: Bradycardia Other Information Study Quality: Adequate Indications Arrhythmia Diabetes CAD Hypertension/HDD V-Tach 2D Dimensions RVDd: 37.33 mm IVSd: 9.76 (7-11mm) LVOT Diam: 19.00 (18-24mm) LVDd: 45.96 mm PWd: 10.28 (7-11mm) Ascending Ao: 26.00 (22-36mm) LVDs: 31.34 (25-40mm) Aortic Root: 25.46 mm IVC: 13.00 mm Volumes Left Atrial Volume (Systole) Single Plane 4CH: 31.86 mL Single Plane 2CH: 25.95 mL LA ESV Index: 17.00 mL/m2 Aortic Valve AoV Peak Phillip.: 1.89 m/s AO Peak Gr.: 14.24 mmHg LVOT Max P.33 mmHg LVOT Max V: 1.15 m/s BRYNN Vmax: 1.73 cm2 Mitral Valve [facility] [address] [place] [address] 2 D/M-MODE ECHOCARDIOGRAM Name: HOA LUNA Room #: 205-P [facility] IN .R.#: [id number] Admission: 12/03/18 Attend Phys: Carlos Blanca MD Discharge: Date of : 44 Date of Service: 12/05/18 1135 Report #: [id number] E/A Ratio: 0.9 MV Decel. Time: 253.99 ms MV E Max Phillip.: 1.01 m/s MV A Phillip.: 1.14 m/s MV PHT: 73.66 ms IVRT: 110.73 ms Pulmonary Valve PV Peak Phillip.: 1.10 m/s PV Peak Gr.: 4.83 mmHg Pulmonary Vein P Vein S: 0.44 m/s P Vein A: 0.25 m/s P Vein D: 0.31 m/s P Vein A Dur.: 87.7 msec P Vein S/D Ratio: 1.42 Tricuspid Valve TR Peak Phillip.: 2.26 m/s TR Peak Gr.: 20.39 mmHg PA Pressure: 25.00 mmHg Left Ventricle The left ventricle is normal size. There is normal LV segmental wall motion. There is normal left ventricular wall thickness. The left ventricular systolic function is normal. The left ventricular ejection fraction is within the normal range. LVEF is 55-60%. Grade I - abnormal relaxation pattern. Right Ventricle The right ventricle is normal size. The right ventricular systolic function is normal. Atria The left atrium size is normal. The right atrium size is normal. Aortic Valve The aortic valve is trileaflet, mildly sclerotic. Trace aortic regurgitation. There is no aortic valvular stenosis. Mitral Valve Mildly calcified anterior mitral leaflet Mild mitral regurgitation. No evidence of mitral valve stenosis. [facility] [address] [place] [address] 2 D/M-MODE ECHOCARDIOGRAM Name: HOA LUNA Room #: 205-P [facility] IN M.R.#: [id number] Admission: 12/03/18 Attend Phys: Carlos Blanca MD Discharge: Date of : 44 Date of Service: 12/05/18 1135 Report #: [id number] Tricuspid Valve The tricuspid valve is normal in structure. There is trace tricuspid regurgitation. Estimated PAP 25 mmHg. There is no pulmonary hypertension. Pulmonic Valve The pulmonary valve is normal in structure. Trace pulmonic regurgitation. Great Vessels The aortic root is normal in size. IVC is normal in size and collapses >50% with inspiration. Pericardium There is no pericardial effusion. <Conclusion> The left ventricular systolic function is normal. There is normal LV segmental wall motion. LVEF is 55-60%. Mild diastolic dysfunction The aortic valve is trileaflet, mildly sclerotic. Trace aortic regurgitation, no stenosis. Mildly calcified anterior mitral leaflet. Mild mitral regurgitation. There is trace tricuspid regurgitation. Estimated pulmonary artery pressure of 25 mmHg. There is no pericardial effusion. <ELECTRONICALLY SIGNED> By: Cameron Lizarraga MD, FACC 12/05/18 1135 1135 1135 Cameron Lizarraga MD, FACC /INF
[2018-12-05 12:30] VITALS: BP 119/54
[2018-12-05 16:20] VITALS: BP 118/66
--- NOTE | 2018-12-05 16:49 | EKG ---
[place] [address] [address] [facility] [place] [address] ELECTROCARDIOGRAM REPORT Name: HOA LUNA Room #: 205- ADM IN M.R.#: [id number] Admission: 12/03/18 Attend Phys: Carlos Blanca MD Discharge: Date of : 44 Report #: [id number] THIS REPORT FOR: //name// [facility] Test Date: 2018-12-05 Test Time: 09:55:44 Pat Name: HOA LUNA Department: Room: 205 P Gender: F Senior Sales Manager: Harjit MTZ : 1940 Requested By: Stephanie Hoyt Order Number: [id number] MD: Cameron Lizarraga Measurements Intervals [place] Rate: 61 P: 67 OR: 186 QRS: 10 QRSD: 92 T: 29 QT: 445 QTc: 449 Interpretive Statements Sinus rhythm Low voltage, extremity leads Compared to ECG 12/04/2018 13:54:49 Sinus bradycardia no longer present Electronically Signed On 12-05-2018 16:49:50 SCREEN DOOR MAKER by Cameron Lizarraga [email or web address] <ELECTRONICALLY SIGNED> By: Cameron Lizarraga MD, [facility] 12/05/18 1649 0955 0955 Cameron Lizarraga MD, [facility] /EPI
[2018-12-05 20:30] VITALS: BP 121/55
[2018-12-06 04:34] VITALS: BP 136/63
--- NOTE | 2018-12-06 04:42 | NUR ---
ASSUMED PT CARE AT 1900. PT A&0X4, ASSESSEMNTS ARE DOCUMENTED. VSS EXCEPT HEART RATE. HR WOULD BE SB AND THEN GO UP TO 130s OF ST. PT STILL REFUSING PACER/ICD. SHE INSISTS ON PRAYING FOR HER HEALING. OTHERWISE, PT RESTED WELL ALL NIGHT, NO COMPLAINTS OF DISTRESS OR PAIN. PT TO BE D/C TO HOME TODAY, WILL CONTINUE TO MONITOR PER POC
[2018-12-06 07:48] VITALS: BP 113/74
--- NOTE | 2018-12-06 08:20 | EKG ---
[address] [address] ELECTROCARDIOGRAM REPORT Name: HOA LUNA Room #: 205- ADM IN M.R.#: [id number] Admission: 12/03/18 Attend Phys: Carlos Blanca MD Discharge: Date of : 44 Report #: [id number] THIS REPORT FOR: //name// [facility] Test Date: 2018-12-06 Test Time: 07:27:20 Pat Name: HOA LUNA Department: Room: 205 Gender: F Feeder Catcher: MERCEDEZ : 1940 Requested By: Stephanie Hoyt Order Number: [id number] MD: Cameron Lizarraga Measurements Intervals [place] Rate: 59 P: 80 RI: 182 QRS: 40 QRSD: 106 T: 43 QT: 482 QTc: 478 Interpretive Statements Sinus rhythm Baseline wander in lead(s) I,III,aVL Compared to ECG 12/05/2018 09:55:44 No significant changes Electronically Signed On 12-06-2018 8:20:11 PROSTHETICS TECHNICIAN by Cameron Lizarraga [email or web address] <ELECTRONICALLY SIGNED> By: Cameron Lizarraga MD, [facility] 12/06/18819 6 6 Cameron Lizarraga MD, [facility] /EPI
[2018-12-06 10:10] VITALS: BP 113/74
--- NOTE | 2018-12-06 10:16 | NUR ---
met with patient who admits with vtac and does not want pacemaker. Tenative plan for home today. patient resides in independent apt with all needs on one level. She uses a cane for ambulation. She reports 2 steps to enter apt. 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 She reports her son Brannon and dtr in law supportive and at bedside. Discussed dc today and may benefit from HH care at dc. Patient does wish to receive HH care. She has no preference and used [facility] in the past she prefers to use again if ordered. Updated [facility] to evms. Verified address and phone number her PCP is Dr Davidson.
[2018-12-06 12:53] VITALS: BP 100/43
[2018-12-06 16:09] VITALS: BP 129/61
--- NOTE | 2018-12-06 16:27 | NUR ---
PATIENT ACCEPTED WITH HOME HEALTH VIA [facility]. TENATIVE PLAN HOME TOMORROW WITH HH CARE.
[2018-12-06 19:33] VITALS: BP 105/52
[2018-12-07 04:50] VITALS: BP 144/52
[2018-12-07 08:15] VITALS: BP 159/76
--- NOTE | 2018-12-07 08:18 | EKG ---
[address] [employer] [place] [address] ELECTROCARDIOGRAM REPORT Name: HOA LUNA Room #: 205- ADM IN M.R.#: [id number] Admission: 12/03/18 Attend Phys: Carlos Blanca MD Discharge: Date of : 44 Report #: [id number] THIS REPORT FOR: //name// [facility] Test Date: 2018-12-06 Test Time: 15:10:10 Pat Name: HOA LUNA Department: Room: 205 Gender: F Commissions Analyst: Mimi BLAKE : 1940 Requested By: Davi Mary Order Number: [id number] MD: Cameron Lizarraga Measurements Intervals [place] Rate: 61 P: 75 IN: 178 QRS: 3 QRSD: 96 T: 22 QT: 453 QTc: 457 Interpretive Statements Sinus rhythm No significant abnormality Compared to ECG 12/06/2018 07:27:20 No significant change was found Electronically Signed On 12-07-2018 8:18:36 LADDERMAN by Cameron Lizarraga [email or web address] <ELECTRONICALLY SIGNED> By: Cameron Lizarraga MD, [facility] 12/07/18 0818 09 Cameron Lizarraga MD, [facility] /EPI
--- NOTE | 2018-12-07 08:35 | EKG ---
[address] [place] [address] ELECTROCARDIOGRAM REPORT Name: HOA LUNA Room #: 205- ADM IN M.R.#: [id number] Admission: 12/03/18 Attend Phys: Carlos Blanca MD Discharge: Date of : 44 Report #: [id number] THIS REPORT FOR: //name// [facility] Test Date: 2018-12-07 Test Time: 07:01:22 Pat Name: HOA LUNA Department: Room: 205 Gender: F Cabinetmaker Apprentice: MERCEDEZ : 1940 Requested By: Stephanie Hoyt Order Number: [id number] MD: Cameron Lizarraga Measurements Intervals [place] Rate: 60 P: 78 IN: 188 QRS: 31 QRSD: 91 T: 34 QT: 473 QTc: 473 Interpretive Statements Sinus rhythm Borderline low voltage, extremity leads Compared to ECG 12/06/2018 07:27:20 No significant changes Electronically Signed On 12-07-2018 8:34:58 SYSTEM PLANNING ENGINEER by Cameron Lizarraga [email or web address] <ELECTRONICALLY SIGNED> By: Cameron Lizarraga MD, [facility] 12/07/18 0834 0 0 Cameron Lizarraga MD, [facility]AC /EPI
[2018-12-07] MEDS ORDERED: SOTALOL 120 MG120 MG PO (09:14)
[2018-12-07 11:24] LABS: CALCIUM 9.8 mg/dL (8.5-10.1); CREATININE 0.9 mg/dL (0.6-1.0); MAGNESIUM 1.5 mg/dL (1.8-2.4); POTASSIUM 3.9 mmol/L (3.5-5.1)
[2018-12-07 15:46] VITALS: BP 137/56
[2018-12-07 15:50] LABS: URINE BILIRUBIN NEGATIVE (Negative); URINE BLOOD NEGATIVE (Negative); URINE CLARITY CLEAR; URINE COLOR YELLOW; URINE GLUCOSE-RANDOM* NEGATIVE (Negative); URINE KETONES NEGATIVE (Negative); URINE LEUKOCYTES NEGATIVE (Negative); URINE NITRITE NEGATIVE (Negative); URINE PROTEIN (DIPSTICK) NEGATIVE (Negative); URINE UROBILINOGEN 0.2 E.U./dl (0.2-1.0)
--- NOTE | 2018-12-07 19:26 | NUR ---
ASSUMED PATIENT CARE THIS AM. PATIENT LYING IN BED, A&O. ROOM AIR. UP TO BATHROOM WITH CANE. TOLERATING DIET. LOW FALL RISK. PATIENT CARE TECHNICIAN INSTRUCTOR IN PLACE. PATIENT URINE BEING COLLECTED FOR 24 URINE SPECIMEN, EDUCATION GIVEN TO PATIENT ON CORRECT COLLECTING PROCEDURE. PATIENT AGREES TO CALL OUT TO NURSE WHEN NEED TO USE RESTROOM.
[2018-12-07 19:27] VITALS: BP 126/51
[2018-12-08 03:19] LABS: CALCIUM 9.5 mg/dL (8.5-10.1); CREATININE 0.8 mg/dL (0.6-1.0); MAGNESIUM 2.4 mg/dL (1.8-2.4); POTASSIUM 4.4 mmol/L (3.5-5.1)
[2018-12-08 04:07] VITALS: BP 161/74
--- NOTE | 2018-12-08 04:51 | NUR ---
PT. AOX4; CALLED WHEN GOING TO RESTROOM; URINE COLLECTED THROUGH THE NIGHT; NO C/O PAIN; ABLE TO REST WITH EYES CLOSE DURING THE NIGHT; ASSESSMENT CHARGED; FOLLOWING POC; WILL PASS ON REPORT.
[2018-12-08 07:15] VITALS: BP 132/61
--- NOTE | 2018-12-08 09:21 | EKG ---
[address] [place] [address] ELECTROCARDIOGRAM REPORT Name: HOA LUNA Room #: 205- ADM IN M.R.#: [id number] Admission: 12/03/18 Attend Phys: Carlos Blanca MD Discharge: Date of : 44 Report #: [id number] THIS REPORT FOR: //name// [facility] Test Date: 2018-12-08 Test Time: 06:59:13 Pat Name: HOA LUNA Department: Room: 205 Gender: F Pediatric Clinical Dietician: MERCEDEZ : 1940 Requested By: Stephanie Hoyt Order Number: [id number] MD: Cameron Lizarraga Measurements Intervals [place] Rate: 61 P: 69 SD: 187 QRS: 14 QRSD: 97 T: 15 QT: 445 QTc: 449 Interpretive Statements Sinus rhythm Borderline low voltage, extremity leads Compared to ECG 12/07/2018 07:01:22 No significant change was found Electronically Signed On 12-08-2018 9:21:32 ASSOCIATE STORE DIRECTOR by Cameron Lizarraga [email or web address] <ELECTRONICALLY SIGNED> By: Cameron Lizarraga MD, [facility] 12/08/18 0921 0659 0659 Cameron Lizarraga MD, [facility] /EPI
--- NOTE | 2018-12-08 09:53 | NUR ---
ASSUMED PATIENT CARE THIS AM. PATIENT LYING IN BED, A&O. ROOM AIR. UP TO BATHROOM WITH CANE, STEADY GAIT. PATIENT AWARE OF 24 HOUR URINE COLLECTION AND CALLS OUT APPROPRIATLY. TOLERATING DIET. WILL CONTINUE TO MONITOR. AWAITING DOCTORS THIS AM TO FIGURE OF PLAN OF CARE, MORE MONITORING/DC HOME WITH FOLLOW UP.
[2018-12-08 11:15] VITALS: BP 157/44
--- NOTE | 2018-12-08 12:23 | NUR ---
Likely dc to home this evening after 24hr urine is completed at 6pm. [facility] alerted to dc today and soc tomorrow. No other cm interventions indicated.
[2018-12-08 16:30] VITALS: BP 126/54
[2018-12-08 19:50] VITALS: BP 140/52
[2018-12-09 04:45] VITALS: BP 131/50
--- NOTE | 2018-12-09 05:16 | NUR ---
ASSESSMENTS CHARTED. PATIENT REFUSED BEDSIDE REPORT AND DELAYED INITIAL ASSESSMENT AND MEDS UNTIL HER FAMILY AND GUESTS LEFT. C/O PAIN 6/10 DURING INITIAL ASSESSMENT, DOSED CHARTED. UP AT [facility] WITH CANE. PLAN OF CARE IS TO HAVE AN EKG THIS MORNING. FURTHER PLANS ARE UNKNOWN SINCE PATIENT HAS REFUSED ANY INVASIVE TREATMENTS.
[2018-12-09 07:35] VITALS: BP 164/53
--- NOTE | 2018-12-09 08:18 | EKG ---
[address] [address] ELECTROCARDIOGRAM REPORT Name: HOA LUNA Room #: 205- ADM IN M.R.#: [id number] Admission: 12/03/18 Attend Phys: Carlos Blanca MD Discharge: Date of : 44 Report #: [id number] THIS REPORT FOR: //name// [facility] Test Date: 2018-12-09 Test Time: 07:04:34 Pat Name: HOA LUNA Department: Room: 205 P Gender: F Keypunch Operators Supervisor: MERCEDEZ : 1940 Requested By: Stephanie Hoyt Order Number: [id number] MD: Efrain Ndiaye Measurements Intervals [place] Rate: 67 P: 71 [place]: 179 QRS: 55 QRSD: 102 T: 33 QT: 443 QTc: 468 Interpretive Statements Sinus rhythm Borderline T wave abnormalities Compared to ECG 12/08/2018 06:59:13 T-wave abnormality now present Electronically Signed On 12-09-2018 8:18:34 FINANCIAL REPORTING ADVISOR by Efrain Ndiaye [email or web address] <ELECTRONICALLY SIGNED> By: Efrain Ndiaye MD 12/09/18817 3 3 Efrain Ndiaye MD /EDOUARD
[2018-12-09 10:06] VITALS: BP 113/74
[2018-12-09 11:35] VITALS: BP 150/68
[2018-12-09] MEDS ORDERED: PACERONE 200 M200 M1 PO (12:36)
--- NOTE | 2018-12-09 14:54 | NUR ---
[facility] updated as dc held due to heart rythem issues. HH orders will need to be faxed to [phone] and the oncall nurse notified of dc at [phone] if discharged over the weekend.
[2018-12-09 16:10] VITALS: BP 134/83
--- NOTE | 2018-12-09 16:16 | EKG ---
[place] [address] [facility] [place] [address] ELECTROCARDIOGRAM REPORT Name: HOA LUNA Room #: 205- ADM IN M.R.#: [id number] Admission: 12/03/18 Attend Phys: Carlos Blanca MD Discharge: Date of : 44 Report #: [id number] THIS REPORT FOR: //name// [facility] Test Date: 2018-12-09 Test Time: 08:30:47 Pat Name: HOA LUNA Department: Room: 205 P Gender: F Change Number Operator: MERCEDEZ : 1940 Requested By: Efrain Ndiaye Order Number: [id number] MD: Cameron Lizarraga Measurements Intervals [place] Rate: 99 P: 75 SC: 174 QRS: 39 QRSD: 102 T: -28 QT: 400 QTc: 514 Interpretive Statements Sinus rhythm Ventricular bigeminy Nonspecific T wave abnormality Compared to ECG 12/09/2018 07:04:34 Ventricular premature complex(es) now present Electronically Signed On 12-09-2018 16:16:12 WIRE TESTER by Cameron Lizarraga [email or web address] <ELECTRONICALLY SIGNED> By: Cameron Lizarraga MD, [facility] 12/09/18 1616 9 Cameron Lizarraga MD, [facility] /EPI
--- NOTE | 2018-12-09 16:37 | NUR ---
ASSESSMENT CHARTED - MEDS PER JAN - GIVEN OXY FOR CO'S OF PAIN IN ELBOW AND KNEE ON THE RIGHT - MEDS HAD DESIRED EFFECT. JEFERSON DIET AND FLUIDS. UP TO THE BED SIDE COMMODE WITH STANDBY ASSIST. ACCUCHECKS CHARTED - PATIENT APPEARS TO HAVE RESTED COMFORTABLY THIS SHIFT.
[2018-12-09 20:00] VITALS: BP 149/43
[2018-12-10 04:21] LABS: HEMATOCRIT 33.4 % (37.0-47.0); HEMOGLOBIN 10.6 gm/dL (12.0-15.0); MCH 26.7 pg (26.0-34.0); MCHC 31.8 g/dL (28.0-37.0); MCV 84.1 fL (80.0-100.0); RBC 3.98 mil/uL (4.20-5.00); RDW 17.1 % (10.5-14.5); WBC 12.5 thou/uL (4.0-11.0)
[2018-12-10 04:29] LABS: CALCIUM 9.1 mg/dL (8.5-10.1); POTASSIUM 4.1 mmol/L (3.5-5.1)
[2018-12-10 04:30] VITALS: BP 141/44
--- NOTE | 2018-12-10 05:31 | NUR ---
ASSESSMENT CHARTED. PT IN AND OUT OF BIGEMINY. C/O NAUSEA AROUND 0500. TREATED CHARTED. PT REQUESTED LAXATIVE. PLAN OF CARE IS CONTINUED AMIODARONE LOADING.
[2018-12-10 07:40] VITALS: BP 143/47
--- NOTE | 2018-12-10 10:12 | EKG ---
[address] [place] [address] ELECTROCARDIOGRAM REPORT Name: HOA LUNA Room #: 205- ADM IN M.R.#: [id number] Admission: 12/03/18 Attend Phys: Carlos Blanca MD Discharge: Date of : 42 Report #: [id number] THIS REPORT FOR: //name// [facility] Test Date: 2018-12-10 Test Time: 08:03:54 Pat Name: HOA LUNA Department: Room: 205 Gender: F Test And Research Reactor Operator: KRISTEN : 1940 Requested By: Stephanie Hoyt Order Number: [id number] MD: Efrain Ndiaye Measurements Intervals [place] Rate: 90 P: 54 [place]: 172 QRS: 12 QRSD: 85 T: QT: 415 QTc: 508 Interpretive Statements Sinus rhythm Ventricular bigeminy Borderline low voltage, extremity leads Nonspecific T abnormalities, lateral leads Compared to ECG 12/09/2018 08:30:47 No significant changes Electronically Signed On 12-10-2018 10:12:20 ORACLE CONSULTANT by Efrain Ndiaye [email or web address] <ELECTRONICALLY SIGNED> By: Efrain Ndiaye MD 12/10/18 1012 08 08 Efrain Ndiaye MD /EDOUARD
[2018-12-10 11:35] VITALS: BP 122/47
[2018-12-10 14:41] VITALS: BP 113/74
[2018-12-10] MEDS ORDERED: PACERONE 200 M200 M1 PO (15:10)
--- NOTE | 2018-12-10 15:47 | NUR ---
ASSESSMENT CAHRTED - MEDS PER MAR - OXY GIVEN FOR CO'S OF PAIN IN R WRIST AND ELBOW. PT UP TO THE BSC WITH STBY ASSIST. JEFERSON DIET AND FLUIDS. PT HOME THIS AFTERNOON - 3 CALLS MADE TO FOR SCRIPT REQUIRED FOR PT TO LEAVE. INSTRUCTION RE HOME MEDS/ CARE AND FU GIVEN TO PATIENT - STATED UNDERSTANDING - LEFT UNIT VIA WHEELCHAIR - HOMR VIA PVT VEHICLE ACCOMPANIED BY MICHAEL - ENRIQUE AND MONITOR REMOVED PRIOR TO D/C. TREVOR COLEMAN CALLED AND NOTIFIED OF PATIENT LEAVING. NO CO'S AT TIME OF D/C.
[2018-12-11 07:06] LABS: URINE MAGNESIUM-mg/dl 17.8 mg/dL (Not Estab.)
== END 2018-12-10 15:20 | disposition home health service (06) | DRG 682 ==
LOC: ER 13:59 → 2N 16:15 → EROBS 16:15 → 2N 17:35
PROVIDERS: Emergency Medicine; Hospitalist; Internal Medicine; Nurse Practitioner; ADMIT Internal Medicine
DX: N17.0 Acute kidney failure with tubular necrosis (principal); E43 Unspecified severe protein-calorie malnutrition; I47.2 Ventricular tachycardia; J45.909 Unspecified asthma, uncomplicated; M19.90 Unspecified osteoarthritis, unspecified site; I25.10 Atherosclerotic heart disease of native coronary artery without angina pectoris; E78.5 Hyperlipidemia, unspecified; N18.3 Chronic kidney disease, stage 3 (moderate); E11.42 Type 2 diabetes mellitus with diabetic polyneuropathy; E66.01 Morbid (severe) obesity due to excess calories; G89.29 Other chronic pain; M54.5 Low back pain; I70.1 Atherosclerosis of renal artery; E83.42 Hypomagnesemia; K59.00 Constipation, unspecified; I71.4 Abdominal aortic aneurysm, without rupture; Z53.29 Procedure and treatment not carried out because of patient's decision for other reasons; M48.061 Spinal stenosis, lumbar region without neurogenic claudication; E11.51 Type 2 diabetes mellitus with diabetic peripheral angiopathy without gangrene; I25.5 Ischemic cardiomyopathy; M10.9 Gout, unspecified; I12.9 Hypertensive chronic kidney disease with stage 1 through stage 4 chronic kidney disease, or unspecified chronic kidney disease; E11.22 Type 2 diabetes mellitus with diabetic chronic kidney disease; Z60.2 Problems related to living alone; Z86.73 Personal history of transient ischemic attack (TIA), and cerebral infarction without residual deficits; I25.2 Old myocardial infarction; Z87.81 Personal history of (healed) traumatic fracture; Z85.41 Personal history of malignant neoplasm of cervix uteri; Z90.710 Acquired absence of both cervix and uterus; Z88.8 Allergy status to other drugs, medicaments and biological substances; Z88.1 Allergy status to other antibiotic agents; Z91.010 Allergy to peanuts; Z82.49 Family history of ischemic heart disease and other diseases of the circulatory system; Z83.3 Family history of diabetes mellitus; Z83.6 Family history of other diseases of the respiratory system; Z68.31 Body mass index [BMI] 31.0-31.9, adult; Z79.82 Long term (current) use of aspirin; Z79.899 Other long term (current) drug therapy
CPT/HCPCS: 10081

== ENCOUNTER 2019-04-12 09:09 | Inpatient (IN) | payer OTHER ==
[~2019-04-12] VITALS: Ht 162.6 cm; Wt 80.6 kg
[2019-04-12 09:09] VITALS: BP 148/49
[~2019-04-12 09:09] MED LIST changes: +BASAGLAR K100 UNIT/1 SUBQ; +PACERONE 200 M200 M1 PO; +SOTALOL 120 MG120 MG PO
[2019-04-12 09:52] LABS: HEMATOCRIT 31.4 % (37.0-47.0); HEMOGLOBIN 10.4 gm/dL (12.0-15.0); MCH 28.1 pg (26.0-34.0); MCV 85.1 fL (80.0-100.0); RBC 3.69 mil/uL (4.20-5.00)
[2019-04-12 09:56] LABS: ANION GAP 8 mmol/L (7-16); BUN 23 mg/dL (7-18); CALCIUM 9.3 mg/dL (8.5-10.1); CHLORIDE 102 mmol/L (98-107); CO2 27 mmol/L (21-32); CREATININE 1.1 mg/dL (0.6-1.0); GLUCOSE 88 mg/dL (74-106); POTASSIUM 4.3 mmol/L (3.5-5.1); SODIUM 137 mmol/L (136-145)
[2019-04-12 10:03] LABS: APTT 27.6 Seconds (24.5-32.8); PROTIME 10.6 Seconds (9.3-11.4)
[2019-04-12 10:05] LABS: TROPONIN-I <0.06 ng/mL (<0.06)
[2019-04-12 13:37] VITALS: BP 173/83
--- NOTE | 2019-04-12 14:00 | NUR ---
ATTEMPTED TO CALL REPORT
--- NOTE | 2019-04-12 17:15 | NUR ---
79 YO FEMALE ADMITTED TO 210 FROM ER. VSS, ALERT AND ORIENTED X4, NO COMPLAINTS OF PAIN. AMBULATES WITH CANE AND STANDBY ASSIST, VOICES NO CONCERNS, WILL CONTINUE TO MONITOR
[2019-04-12 20:10] VITALS: BP 148/48
[2019-04-13 03:40] VITALS: BP 156/55
[2019-04-13 04:27] LABS: HEMATOCRIT 32.6 % (37.0-47.0); HEMOGLOBIN 10.9 gm/dL (12.0-15.0); MCH 28.3 pg (26.0-34.0); MCHC 33.4 g/dL (28.0-37.0); MCV 84.7 fL (80.0-100.0); RBC 3.85 mil/uL (4.20-5.00); RDW 17.2 % (10.5-14.5); WBC 7.9 thou/uL (4.0-11.0)
[2019-04-13 04:39] LABS: CALCIUM 9.5 mg/dL (8.5-10.1); CREATININE 1.1 mg/dL (0.6-1.0); POTASSIUM 4.1 mmol/L (3.5-5.1)
[2019-04-13 08:52] VITALS: BP 150/82
--- NOTE | 2019-04-13 09:12 | EKG ---
[address] [place] [address] ELECTROCARDIOGRAM REPORT Name: HOA LUNA Room #: 210-P [facility] IN M.R.#: [id number] ������������������ Admission: 04/12/19 ������������������ Attend Phys: Anthony Antunez MD Discharge: ������������������ Date of : 44 Report #: [id number] ����������������������������������������������������������������� [id number] THIS REPORT FOR: //name// [facility] Test Date: 2019-04-12 Test Time: 09:30:07 Pat Name: HOA LUNA Department: Room: 210 Gender: F Vegetable Scullion: LALITO : 1940 Requested By: Rolly De Oliveira Order Number: [id number] MD: Cameron Lizarraga Measurements Intervals [place] Rate: 56 P: 58 NV: 199 QRS: 43 QRSD: 143 T: 56 QT: 468 QTc: 452 Interpretive Statements Sinus bradycardia Otherwise normal tracing Compared to ECG 12/10/2018 08:03:54 Ventricular premature complex(es) no longer present nonspecific T-wave abnormality no longer present Electronically Signed On 04-13-2019 9:12:14 CDT by Cameron Lizarraga [email or web address] ��������������������������������������������� <ELECTRONICALLY SIGNED> ���������������������������������������� By: Cameron Lizarraga MD, [facility] ��������������������������������������������� 04/13/19911 9 9 Cameron Lizarraga MD, [facility] /EPI
[2019-04-13 11:02] VITALS: BP 138/67
[2019-04-13 11:39] LABS: TSH 1.073 uIU/mL (0.358-3.740)
[2019-04-13 15:13] VITALS: BP 148/51
[2019-04-13 16:24] VITALS: BP 148/51
--- NOTE | 2019-04-13 16:45 | NUR ---
PATIENT ALERT AND ORIENTED, VSS, NO COMPLAINTS OF PAIN, AMBULATES WITH CANE AND STANDBY ASSIST. PATIENT DISCHARGED TO HOME ACCOMPANIED BY NEPHEW, DISCHARGE INSTRUCTIONS GIVEN TO PATIENT, PATIENT STATES UNDERSTANDING
--- NOTE | 2019-04-15 22:26 | HC ---
[facility] [place] [address] CONSULTATION Name: HOA LUNA Room #: 210-P [facility] IN M.R.#: [id number] Admission: 04/12/19 ������������������ Attend Phys: Anthony Antunez MD Discharge: 04/13/19 ������������������ Date of : 44 Report #: [id number] THIS REPORT FOR: //name// CC: Anthony Kinney DATE OF SERVICE: 04/12/2019 HISTORY OF PRESENT ILLNESS: A 79-year-old old female patient was seen by me for what looks like involuntary movements of the whole body. It started spontaneously about 3 days ago. She indicated it has resolved. To me, she tells me that she was not having this kind of movements before. REVIEW OF SYSTEMS: Indicates the patient has these involuntary movements. She has a history of atypical pneumonia, generalized weakness, ventricular arrhythmias, coronary artery disease. She has multiple allergies. She has a history of stroke in 2016 and she indicated that she had some weakness on the left side. Because of that, has a history of prolapsed mitral valve, ME, diabetes mellitus, ankle fracture, hysterectomy, AAA repair, lumbar stenosis, chronic kidney disease. She does not believe that she has any new eye or ENT features associated with this. She is not having any active GI, , musculoskeletal, constitutional, dermatological, hematological, psychiatric, throat or allergic symptom associated with present symptomatology. PAST MEDICAL HISTORY: Positive for stroke. FAMILY HISTORY: Negative for any early age stroke. SOCIAL HISTORY: She does not smoke or drink. PHYSICAL EXAMINATION: Indicates she is alert. She is responsive. She can follow simple commands. Her speech, concentration, fund of knowledge and memory is at her baseline. Cranial nerve examination 2-12 looks unremarkable. Strength is somewhat diminished on the left side, which is her baseline. Position sense is present on both sides. Reflexes mostly look symmetrical. Tone looks symmetrical too. There is no cerebellar sign. I could not look at the fundus. She is moderately built individual. She does not have any dysmorphic features of eyes, ears and face. Her vision and hearing look adequate. Pulses are somewhat difficult to feel. She has no edema, cyanosis or jaundice. Cardiac examinations appear unremarkable. No respiratory difficulty or rhonchi was noticed. Blood pressure is 173/83, respirations 16, pulse is 53, temperature is 98.5. LABORATORY DATA: WBC count is 8. Sodium is 137. MRI of the brain does not appear to be showing any acute abnormality. [place] [address] CONSULTATION Name: HOA LUNA Room #: 210-P [facility]#: [id number] Admission: 04/12/19 ������������������ Attend Phys: Anthony Antunez MD Discharge: 04/13/19 ������������������ Date of : 44 Report #: [id number] IMPRESSION: I am not sure what the etiology of the patient's symptom is. We will work up for transient ischemic attack or seizures. Her EEG is pending. We will get an MRA done tomorrow. If that does not show any abnormality, we may just have to watch this patient and see how she does. I discussed all of it with the patient and she understands that. ��������������������������������������������� <ELECTRONICALLY SIGNED> ���������������������������������������� By: Shantanu Huddleston MD ��������������������������������������������� 04/15/19 2226 1949 1814 Shantanu Huddleston MD /nt
--- NOTE | 2019-04-15 22:27 | EEG ---
[facility] [place] [address] ELECTROENCEPHALOGRAM Name: HOA LUNA Room #: 210-P [facility] IN M.R.#: [id number] ������������������ Admission: 04/12/19 ������������������ Attend Phys: Anthony Antunez MD Discharge: 04/13/19 ������������������ Date of : 44 Report #: [id number] ����������������������������������������������������������������� [id number] THIS REPORT FOR: //name// CC: Anthony Kinney DATE OF SERVICE: 04/12/2019 This patient is being evaluated for the possibility of seizure. EEG was done by placing the electrodes by standard 10-20 system of electrode placement. Both referential and sequential montages were used for recording. Background activity in this patient's EEG is about 10 Hz and 30 microvolt. It is a symmetrical activity. This patient became drowsy and went to sleep that is associated with bilateral slowing and vertex sharp waves. Photic stimulation is unremarkable. Throughout the record, no active epileptiform activity was noticed. IMPRESSION: This patient's electroencephalogram is unremarkable. ���������������������������������������� <ELECTRONICALLY SIGNED> ���������������������������������������� By: Shantanu Huddleston MD ��������������������������������������������� 04/15/19 2227 14 Shantanu Huddleston MD /nt
== END 2019-04-13 18:44 | disposition home or self-care (01) | DRG 57 ==
LOC: ER 09:09 → 2N 12:07 → EROBS 12:07 → 2N 14:41 → ENTRNSPT 04-13 17:19 → 2N 04-13 18:44
PROVIDERS: Emergency Medicine; ADMIT Hospitalist
DX: G25.9 Extrapyramidal and movement disorder, unspecified (principal); I47.2 Ventricular tachycardia; M19.90 Unspecified osteoarthritis, unspecified site; J45.909 Unspecified asthma, uncomplicated; I25.10 Atherosclerotic heart disease of native coronary artery without angina pectoris; E78.5 Hyperlipidemia, unspecified; N18.3 Chronic kidney disease, stage 3 (moderate); I12.9 Hypertensive chronic kidney disease with stage 1 through stage 4 chronic kidney disease, or unspecified chronic kidney disease; E11.22 Type 2 diabetes mellitus with diabetic chronic kidney disease; I70.1 Atherosclerosis of renal artery; E66.9 Obesity, unspecified; E11.51 Type 2 diabetes mellitus with diabetic peripheral angiopathy without gangrene; D64.9 Anemia, unspecified; Z88.1 Allergy status to other antibiotic agents; Z88.8 Allergy status to other drugs, medicaments and biological substances; Z91.010 Allergy to peanuts; Z86.73 Personal history of transient ischemic attack (TIA), and cerebral infarction without residual deficits; Z79.82 Long term (current) use of aspirin; Z79.899 Other long term (current) drug therapy; Z95.5 Presence of coronary angioplasty implant and graft; Z68.30 Body mass index [BMI] 30.0-30.9, adult; Z82.49 Family history of ischemic heart disease and other diseases of the circulatory system; Z83.3 Family history of diabetes mellitus; Z90.710 Acquired absence of both cervix and uterus
CPT/HCPCS: 10081

== ENCOUNTER 2019-06-20 16:47 | Emergency (ER) | payer OTHER ==
[~2019-06-20] VITALS: Ht 160 cm; Wt 81.7 kg
[2019-06-20 17:11] VITALS: BP 136/61
[2019-06-20 17:12] LABS: ABSOLUTE NEUTROPHILS 5.1 thou/uL (1.4-8.2); BASOPHILS 0.7 % (0.0-2.0); EOSINOPHILS 4.1 % (0.0-3.0); HEMATOCRIT 31.8 % (37.0-47.0); HEMOGLOBIN 10.5 gm/dL (12.0-15.0); LYMPHOCYTES 32.5 % (24.0-44.0); MCH 28.7 pg (26.0-34.0); MCHC 32.9 g/dL (28.0-37.0); MCV 87.2 fL (80.0-100.0); MONOCYTES 6.9 % (1.0-8.0); PLATELET COUNT 267 thou/uL (150-400); POLYS 55.8 % (36.0-66.0); RBC 3.64 mil/uL (4.20-5.00); RDW 17.7 % (10.5-14.5); WBC 9.2 thou/uL (4.0-11.0)
[2019-06-20 17:16] LABS: ANION GAP 10 mmol/L (7-16); BUN 25 mg/dL (7-18); CALCIUM 9.4 mg/dL (8.5-10.1); CHLORIDE 103 mmol/L (98-107); CO2 24 mmol/L (21-32); CREATININE 1.4 mg/dL (0.6-1.0); GLUCOSE 133 mg/dL (74-106); POTASSIUM 4.4 mmol/L (3.5-5.1); SODIUM 137 mmol/L (136-145)
[2019-06-20 17:26] LABS: ALBUMIN 3.7 g/dL (3.4-5.0); SGOT 14 U/L (15-37); SGPT 14 U/L (30-65); TOTAL BILIRUBIN 0.2 mg/dL (<0.1-1.0); TOTAL PROTEIN 7.5 g/dL (6.4-8.2); TROPONIN-I <0.06 ng/mL (<0.06)
--- NOTE | 2019-06-21 07:48 | EKG ---
[address] [address] ELECTROCARDIOGRAM REPORT Name: HOA LUNA [id number] Admission: 06/20/19 Attend Phys: Discharge: 06/20/19 Date of : 44 Report #: [id number] THIS REPORT FOR: //name// [facility] ED Test Date: 2019-06-20 Test Time: 17:59:08 Pat Name: HOA LUNA Department: Room: Gender: F Roll Forming Machine Set Up Mechanic: SKY : 1940 Requested By: Natalie Pantoja Order Number: [id number] MD: Efrain Ndiaye Measurements Intervals [place] Rate: 66 P: 76 [place]: 188 QRS: 56 QRSD: 96 T: 76 QT: 441 QTc: 463 Interpretive Statements Sinus rhythm Compared to ECG 04/12/2019 09:30:07 Sinus bradycardia no longer present Electronically Signed On 06-21-2019 7:48:22 CDT by Efrain Ndiaye [email or web address] <ELECTRONICALLY SIGNED> By: Efrain Ndiaye MD 06/21/19 0748 1759 1759 Efrain Ndiaye MD /EDOUARD
--- NOTE | 2019-06-21 07:48 | EKG ---
[place] [address] [facility] [place] [address] ELECTROCARDIOGRAM REPORT Name: HOA LUNA Room #: [facility]#: [id number] Admission: 06/20/19 Attend Phys: Discharge: 06/20/19 Date of : 44 Report #: [id number] THIS REPORT FOR: //name// [facility] ED Test Date: 2019-06-20 Test Time: 16:49:00 Pat Name: HOA LUNA Department: Room: Gender: F Electronic Design Engineer: MG-STUDENT : 1940 Requested By: Natalie Pantoja Order Number: [id number] MD: Efrain Ndiaye Measurements Intervals [place] Rate: 94 P: 78 [place]: 182 QRS: 68 QRSD: 96 T: 75 QT: 412 QTc: 516 Interpretive Statements Sinus rhythm Ventricular bigeminy Compared to ECG 04/12/2019 09:30:07 Ventricular premature complex(es) now present Sinus bradycardia no longer present Electronically Signed On 06-21-2019 7:48:13 CDT by Efrain Ndiaye [email or web address] <ELECTRONICALLY SIGNED> By: Efrain Ndiaye MD 06/21/19 0748 48 48 Efrain Ndiaye MD /EDOUARD
== END 2019-06-20 18:09 | disposition home or self-care (01) ==
LOC: ER 16:47
PROVIDERS: Physician Assistant
DX: E86.0 Dehydration (principal); R53.1 Weakness; I10 Essential (primary) hypertension; E11.9 Type 2 diabetes mellitus without complications; Z86.73 Personal history of transient ischemic attack (TIA), and cerebral infarction without residual deficits; Z95.5 Presence of coronary angioplasty implant and graft; Z79.4 Long term (current) use of insulin; Z88.1 Allergy status to other antibiotic agents; Z91.048 Other nonmedicinal substance allergy status; Z91.010 Allergy to peanuts; Z91.09 Other allergy status, other than to drugs and biological substances; Z88.8 Allergy status to other drugs, medicaments and biological substances

== ENCOUNTER 2019-06-24 16:56 | Inpatient (IN) | payer OTHER ==
[~2019-06-24] VITALS: Ht 160 cm; Wt 78.9 kg
[2019-06-24 16:57] VITALS: BP 169/79
[2019-06-24] MEDS ORDERED: LIPITOR40 MG PO (17:04)
[2019-06-24] MEDS ORDERED: TOPROL XL100 MG PO (17:05)
[2019-06-24 17:27] LABS: ABSOLUTE NEUTROPHILS 5.3 thou/uL (1.4-8.2); BASOPHILS 0.1 % (0.0-2.0); HEMOGLOBIN 9.2 gm/dL (12.0-15.0); LYMPHOCYTES 32.6 % (24.0-44.0); MCH 28.4 pg (26.0-34.0); MCHC 32.9 g/dL (28.0-37.0); MCV 86.2 fL (80.0-100.0); PLATELET COUNT 252 thou/uL (150-400); POLYS 58.3 % (36.0-66.0); RBC 3.25 mil/uL (4.20-5.00); RDW 17.2 % (10.5-14.5)
[2019-06-24 17:38] LABS: ANION GAP 10 mmol/L (7-16); BUN 20 mg/dL (7-18); CALCIUM 9.6 mg/dL (8.5-10.1); CHLORIDE 102 mmol/L (98-107); CO2 24 mmol/L (21-32); CREATININE 1.1 mg/dL (0.6-1.0); GLUCOSE 100 mg/dL (74-106); POTASSIUM 4.4 mmol/L (3.5-5.1); SODIUM 136 mmol/L (136-145)
[2019-06-24 17:49] LABS: ALBUMIN 3.7 g/dL (3.4-5.0); LIPASE 186 U/L (73-393); SGOT 15 U/L (15-37); SGPT 14 U/L (30-65); TOTAL BILIRUBIN 0.3 mg/dL (<0.1-1.0); TOTAL PROTEIN 7.1 g/dL (6.4-8.2); TROPONIN-I <0.06 ng/mL (<0.06)
[2019-06-24 18:28] VITALS: BP 169/79
[2019-06-24 18:35] VITALS: BP 182/71
[2019-06-24 18:36] LABS: INR 1.1; PROTIME 11.3 Seconds (9.3-11.4)
[2019-06-24 19:00] VITALS: BP 180/75
[2019-06-24 22:17] VITALS: BP 165/68
[2019-06-25] VITALS: BP 169/74
[2019-06-25 01:26] LABS: HEMATOCRIT 27.7 % (37.0-47.0); HEMOGLOBIN 9.1 gm/dL (12.0-15.0); MCH 28.7 pg (26.0-34.0); MCV 87.2 fL (80.0-100.0); RBC 3.17 mil/uL (4.20-5.00); RDW 17.4 % (10.5-14.5); WBC 8.2 thou/uL (4.0-11.0)
[2019-06-25 01:33] LABS: CREATININE 1.1 mg/dL (0.6-1.0); POTASSIUM 4.3 mmol/L (3.5-5.1)
--- NOTE | 2019-06-25 03:13 | NUR ---
PT ADMITTED FROM ED WITH CHEST PAIN.DENIES CHEST PAIN DURING ADMISSION ASSESSMENT.PT HAS H/O OF CARDIAC STENTS PLACED IN 2006 AND 2018.ORIENTED TO RM AND UNIT ACTIVITIES,REVIEWED MEDS AND CARE POC,PT INAGREEMENT.ASSESSMENT DOCUMENTED.HOME MEDS RESUMED.SINUS RHYTM/SINUS JESSICA ON MONITOR.ON RA W/O RESP DISTRESS.UP WITH SBA TO BR,AMBULATES VIA CANE.PT DENIES ANY NEEDS AT THIS TIME.CONSENTS FORMS SIGNED.
[2019-06-25 08:00] VITALS: BP 143/51
[2019-06-25] MEDS ORDERED: RANEXA500 MG PO (09:12)
[2019-06-25 09:50] VITALS: BP 143/51
--- NOTE | 2019-06-25 10:45 | EKG ---
[address] [place] [address] ELECTROCARDIOGRAM REPORT Name: HOA LUNA Room #: 209-P [facility] IN M.R.#: [id number] Admission: 06/24/19 Attend Phys: Sunil Hinojosa MD Discharge: 06/25/19 Date of : 44 Report #: [id number] THIS REPORT FOR: //name// [facility] ED Test Date: 2019-06-24 Test Time: 17:01:16 Pat Name: HOA LUNA Department: Room: [facility] Gender: F Bleach Boiler Puller: WG : 1940 Requested By: Kelly Castillo Order Number: [id number] MD: Cameron Lizarraga Measurements Intervals [place] Rate: 58 P: 73 [place]: 183 QRS: 30 QRSD: 94 T: 44 QT: 453 QTc: 445 Interpretive Statements Sinus bradycardia Otherwise normal tracing Compared to ECG 06/20/2019 17:59:08 No significant changes Electronically Signed On 06-25-2019 10:45:19 CDT by Cameron Lizarraga [email or web address] <ELECTRONICALLY SIGNED> By: Cameron Lizarraga MD, [facility] 06/25/19 1045 00 00 Cameron Lizarraga MD, [facility] /EPI
--- NOTE | 2019-06-25 11:01 | EKG ---
[place] [address] [facility] [place] [address] ELECTROCARDIOGRAM REPORT Name: HOA LUNA [facility]: 209[facility]P [facility] [id number] Admission: 06/24/19 Attend Phys: Sunil Hinojosa MD Discharge: 06/25/19 Date of : 44 Report #: [id number] THIS REPORT FOR: //name// [facility] Test Date: 2019-06-25 Test Time: 09:33:07 Pat Name: HOA LUNA Department: Room: 209 Gender: F Fire Coordinator: BS : 1940 Requested By: Mica Mccracken Order Number: [id number] MD: Cameron Lizarraga Measurements Intervals [place] Rate: 92 P: 34 [place]: 183 QRS: 38 QRSD: 92 T: 57 QT: 403 QTc: 499 Interpretive Statements Sinus rhythm Ventricular trigeminy Compared to ECG 06/20/2019 17:59:08 Ventricular premature complex(es) now present Electronically Signed On 06-25-2019 11:01:04 CDT by Cameron Lizarraga [email or web address] <ELECTRONICALLY SIGNED> By: Cameron Lizarraga MD, [facility] 06/25/19 1101 2 Cameron Lizarraga MD, [facility] /EPI
--- NOTE | 2019-06-25 14:06 | NUR ---
ASSUMED CARE OF PATIENT AT 0700. PATIENT DENIES ANY CHEST PAIN. ASSESSMENTS CHARTED. PATIENT IS RESTING COMFORTABLY IN BED. PATIENT RELEASED BY BOTH CARDIOLOGY AND HOSPITALIST. PATIENT STATES THAT SHE FEELS BETTER THAN SHE DID WHEN SHE ARRIVED. TELE AND IV REMOVED. PATIENT TAKEN TO THE ER ENTRANCE VIA WHEELCHAIR BY NURSING STAFF AND DRIVEN HOME BY HER SON.
== END 2019-06-25 10:30 | disposition home or self-care (01) | DRG 303 ==
LOC: ER 16:56 → EROBS 18:10 → 2N 18:36
PROVIDERS: Nurse Practitioner Family; ADMIT Hospitalist
DX: I25.10 Atherosclerotic heart disease of native coronary artery without angina pectoris (principal); E78.5 Hyperlipidemia, unspecified; E66.9 Obesity, unspecified; E11.51 Type 2 diabetes mellitus with diabetic peripheral angiopathy without gangrene; M19.90 Unspecified osteoarthritis, unspecified site; J45.909 Unspecified asthma, uncomplicated; G89.29 Other chronic pain; M54.5 Low back pain; I25.5 Ischemic cardiomyopathy; I71.4 Abdominal aortic aneurysm, without rupture; M10.9 Gout, unspecified; I70.1 Atherosclerosis of renal artery; E78.00 Pure hypercholesterolemia, unspecified; Z86.73 Personal history of transient ischemic attack (TIA), and cerebral infarction without residual deficits; Z09 Encounter for follow-up examination after completed treatment for conditions other than malignant neoplasm; I25.2 Old myocardial infarction; Z95.5 Presence of coronary angioplasty implant and graft; Z79.4 Long term (current) use of insulin; Z88.8 Allergy status to other drugs, medicaments and biological substances; Z88.4 Allergy status to anesthetic agent; Z91.010 Allergy to peanuts; Z68.30 Body mass index [BMI] 30.0-30.9, adult; Z82.49 Family history of ischemic heart disease and other diseases of the circulatory system; Z83.3 Family history of diabetes mellitus; Z83.6 Family history of other diseases of the respiratory system; Z79.82 Long term (current) use of aspirin; Z79.899 Other long term (current) drug therapy
CPT/HCPCS: 10194

== ENCOUNTER 2019-10-09 11:44 | Emergency (ER) | payer OTHER ==
[~2019-10-09] VITALS: Ht 162.6 cm; Wt 79.4 kg
[~2019-10-09 11:44] MED LIST changes: +RANEXA500 MG PO
[2019-10-09 13:08] LABS: ABSOLUTE NEUTROPHILS 2.7 thou/uL (1.4-8.2); BASOPHILS 0.7 % (0.0-2.0); EOSINOPHILS 5.7 % (0.0-3.0); HEMATOCRIT 28.1 % (37.0-47.0); LYMPHOCYTES 42.1 % (24.0-44.0); MCH 27.6 pg (26.0-34.0); MCV 86.4 fL (80.0-100.0); MONOCYTES 8.1 % (1.0-8.0); PLATELET COUNT 246 thou/uL (150-400); POLYS 43.4 % (36.0-66.0); RBC 3.25 mil/uL (4.20-5.00); RDW 16.5 % (10.5-14.5); WBC 6.2 thou/uL (4.0-11.0)
[2019-10-09 13:20] LABS: ANION GAP 9 mmol/L (7-16); BUN 17 mg/dL (7-18); CALCIUM 9.3 mg/dL (8.5-10.1); CHLORIDE 106 mmol/L (98-107); CO2 26 mmol/L (21-32); CREATININE 1.2 mg/dL (0.6-1.0); GLUCOSE 105 mg/dL (74-106); POTASSIUM 4.1 mmol/L (3.5-5.1); SODIUM 141 mmol/L (136-145)
[2019-10-09 13:30] LABS: ALBUMIN 3.2 g/dL (3.4-5.0); SGOT 13 U/L (15-37); SGPT 25 U/L (30-65); TOTAL BILIRUBIN 0.2 mg/dL (<0.1-1.0); TOTAL PROTEIN 6.5 g/dL (6.4-8.2); TROPONIN-I <0.06 ng/mL (<0.06)
[2019-10-09 14:28] LABS: URINE BILIRUBIN NEGATIVE (Negative); URINE BLOOD NEGATIVE (Negative); URINE CLARITY CLEAR; URINE COLOR YELLOW; URINE GLUCOSE-RANDOM* NEGATIVE (Negative); URINE KETONES NEGATIVE (Negative); URINE LEUKOCYTES-REFLEX NEGATIVE (Negative); URINE NITRITE-REFLEX NEGATIVE (Negative); URINE PROTEIN (DIPSTICK) NEGATIVE (Negative); URINE UROBILINOGEN 0.2 E.U./dl (0.2-1.0)
[2019-10-09] MEDS ORDERED: OMEPRAZOLE 20 M20 M1 PO (16:11)
[2019-10-09 16:27] VITALS: BP 113/41
--- NOTE | 2019-10-10 08:42 | EKG ---
[address] [address] ELECTROCARDIOGRAM REPORT Name: HOA LUNA Room #: [facility]#: [id number] Admission: 10/09/19 Attend Phys: Discharge: 10/09/19 Date of : 44 Report #: [id number] THIS REPORT FOR: //name// [facility] ED Test Date: 2019-10-09 Test Time: 14:36:16 Pat Name: HOA LUNA Department: Room: Gender: F Taker Off Drying Kiln: KM : 1940 Requested By: Santosh Mseser Order Number: [id number] MD: Efrain Ndiaye Measurements Intervals [place] Rate: 62 P: 70 [place]: 181 QRS: 29 QRSD: 93 T: 69 QT: 431 QTc: 438 Interpretive Statements Sinus rhythm Borderline low voltage, extremity leads Baseline wander in lead(s) I,II,aVR Compared to ECG 06/25/2019 09:33:07 Ventricular premature complex(es) no longer present Electronically Signed On 10-10-2019 8:42:29 PIE BAKER by Efrain Ndiaye [email or web address] <ELECTRONICALLY SIGNED> By: Efrain Ndiaye MD 10/10/19 0842 1436 1436 Efrain Ndiaye MD /EPI
--- NOTE | 2019-10-10 08:42 | EKG ---
[address] [place] [address] ELECTROCARDIOGRAM REPORT Name: HOA LUNA Room #: [facility]#: [id number] Admission: 10/09/19 Attend Phys: Discharge: 10/09/19 Date of : 44 Report #: [id number] THIS REPORT FOR: //name// [facility] ED Test Date: 2019-10-09 Test Time: 11:52:50 Pat Name: HOA LUNA Department: Room: Gender: F Commercial Finance Analyst: GREYSON : 1940 Requested By: Santosh Messer Order Number: [id number] MD: Efrain Ndiaye Measurements Intervals [place] Rate: 66 P: 67 ID: 178 QRS: 14 QRSD: 93 T: 50 QT: 413 QTc: 433 Interpretive Statements Sinus rhythm Borderline low voltage, extremity leads Compared to ECG 06/25/2019 09:33:07 Ventricular premature complex(es) no longer present Electronically Signed On 10-10-2019 8:42:07 PORT CRANE OPERATOR by Efrain Ndiaye [email or web address] <ELECTRONICALLY SIGNED> By: Efrain Ndiaye MD 10/10/19 0842 115 115 Efrain Ndiaye MD /EDOUARD
== END 2019-10-09 16:29 | disposition home or self-care (01) ==
LOC: ER 11:44
PROVIDERS: Physician Assistant
DX: R07.89 Other chest pain (principal); I25.10 Atherosclerotic heart disease of native coronary artery without angina pectoris; E78.5 Hyperlipidemia, unspecified; E66.9 Obesity, unspecified; J45.909 Unspecified asthma, uncomplicated; M19.90 Unspecified osteoarthritis, unspecified site; I10 Essential (primary) hypertension; I25.2 Old myocardial infarction; E11.9 Type 2 diabetes mellitus without complications; M10.9 Gout, unspecified; Z88.1 Allergy status to other antibiotic agents; Z91.018 Allergy to other foods; Z95.5 Presence of coronary angioplasty implant and graft; Z91.010 Allergy to peanuts; Z79.899 Other long term (current) drug therapy; Z79.4 Long term (current) use of insulin; Z79.82 Long term (current) use of aspirin; Z86.73 Personal history of transient ischemic attack (TIA), and cerebral infarction without residual deficits

== ENCOUNTER 2019-11-08 19:12 | Inpatient (IN) | payer OTHER ==
[~2019-11-08] VITALS: Ht 162.6 cm; Wt 80.1 kg
[2019-11-08 19:13] VITALS: BP 136/42
[2019-11-08 19:33] LABS: ABSOLUTE NEUTROPHILS 7.4 thou/uL (1.4-8.2); BASOPHILS 0.6 % (0.0-2.0); EOSINOPHILS 4.2 % (0.0-3.0); HEMATOCRIT 29.2 % (37.0-47.0); HEMOGLOBIN 9.1 gm/dL (12.0-15.0); LYMPHOCYTES 28.1 % (24.0-44.0); MCH 26.8 pg (26.0-34.0); MCHC 31.1 g/dL (28.0-37.0); MCV 86.3 fL (80.0-100.0); MONOCYTES 6.7 % (1.0-8.0); PLATELET COUNT 263 thou/uL (150-400); POLYS 60.4 % (36.0-66.0); RBC 3.38 mil/uL (4.20-5.00); RDW 17.4 % (10.5-14.5); WBC 12.2 thou/uL (4.0-11.0)
[2019-11-08 19:37] LABS: ANION GAP 9 mmol/L (7-16); BUN 27 mg/dL (7-18); CALCIUM 9.3 mg/dL (8.5-10.1); CHLORIDE 105 mmol/L (98-107); CO2 26 mmol/L (21-32); CREATININE 1.4 mg/dL (0.6-1.0); GLUCOSE 159 mg/dL (74-106); POTASSIUM 5.2 mmol/L (3.5-5.1); SODIUM 140 mmol/L (136-145)
[2019-11-08 19:47] LABS: ALBUMIN 3.4 g/dL (3.4-5.0); DIRECT BILIRUBIN < 0.1 mg/dL (<0.1-0.2); MAGNESIUM 1.5 mg/dL (1.8-2.4); SGOT 13 U/L (15-37); SGPT 13 U/L (30-65); TOTAL BILIRUBIN 0.4 mg/dL (<0.1-1.0); TOTAL PROTEIN 6.8 g/dL (6.4-8.2); TROPONIN-I <0.06 ng/mL (<0.06)
[2019-11-08 21:17] LABS: URINE BILIRUBIN NEGATIVE (Negative); URINE BLOOD NEGATIVE (Negative); URINE CLARITY CLEAR; URINE COLOR YELLOW; URINE GLUCOSE-RANDOM* NEGATIVE (Negative); URINE KETONES NEGATIVE (Negative); URINE LEUKOCYTES-REFLEX NEGATIVE (Negative); URINE NITRITE-REFLEX NEGATIVE (Negative); URINE PROTEIN (DIPSTICK) NEGATIVE (Negative); URINE SPECIFIC GRAVITY 1.025 (1.005-1.035); URINE UROBILINOGEN 0.2 E.U./dl (0.2-1.0)
[2019-11-08 23:13] VITALS: BP 137/50
[2019-11-08] MEDS ORDERED: HYDROCODON-ACE1 EAC7 PO (23:50)
[2019-11-09] VITALS (20 sets, daily range): BP systolic 98–159; BP diastolic 33–82
[2019-11-09 01:16] LABS: CHOLESTEROL 99 mg/dL (<200); HDL CHOLESTEROL 31 mg/dL (>40); LDL CHOLESTEROL 19 mg/dL (<100); TC:HDL 3.2 Ratio (Not establshd); TRIGLYCERIDE 245 mg/dL (<150); VLDL 49 mg/dL (<40)
[2019-11-09 01:20] LABS: SERUM ASSESSMENT Clear
--- NOTE | 2019-11-09 05:39 | NUR ---
PT ADMITTED TO THE FLOOR FROM ED APPROX 2300HRS. A&O X4 ABLE TO MAKE NEEDS KNOWN. PT ON AMIODARONE DRIP. ASSIST X1 WITH TRANSFERS AMBULATES USING A CANE. 2L 02 PER NC. LILY PAUL AT THIS TIME
--- NOTE | 2019-11-09 05:45 | NUR ---
PT JESSICA ON THE MONITOR. NSR WITH PVCS. PT'S HR IN UPPER 40S AT THIS TIME. PT WAS IN THE 90s WHEN HE WAS ADMITTED TO THE FLOOR AMIODARONE DRIP AT 0.5MG/MIN. CORRECTIONAL SERGEANT ON THE FLOOR NOTIFIED. VERBAL ORDER OBTAINED TO DC AMIODRONE AT THIS TIME. CARDIOLOGY WAS CONSULTED AND ROUTINE CONSULT WAS CALLED TO ANSWERING SERVICE OVERNITE
--- NOTE | 2019-11-09 08:32 | EKG ---
[address] [place] [address] ELECTROCARDIOGRAM REPORT Name: HOA LUNA Room #: 212-P ADM IN M.R.#: [id number] Admission: 11/08/19 Attend Phys: Reza Lindsey MD Discharge: Date of : 42 Report #: [id number] THIS REPORT FOR: //name// [facility] ED Test Date: 2019-11-08 Test Time: 19:16:56 Pat Name: HOA LUNA Department: Room: [facility] Gender: F Shredded Filler Machine Wrapper Layer: DILAN : 1940 Requested By: Bessie Smith Order Number: [id number] MD: Cameron Lizararga Measurements Intervals [place] Rate: 137 P: 70 [place]: 187 QRS: 31 QRSD: 89 T: 36 QT: 352 QTc: 532 Interpretive Statements Sinus tachycardia Ventricular tachycardia, unsustained Nonspecific ST segment abnormality Compared to ECG 10/09/2019 14:36:16 Ventricular tachycardia now present Electronically Signed On 11-09-2019 8:31:38 CRYSTAL MACHINING COORDINATOR by Cameron Lizarraga [email or web address] <ELECTRONICALLY SIGNED> By: Cameron Lizarraga MD, [facility] 11/09/19 0831 15 15 Cameron Lizarraga MD, [facility] /EPI
[2019-11-09 11:54] LABS: % SATURATION 8 % (20-39); IRON 28 ug/dL (50-170); TIBC 343 ug/dL (250-450)
[2019-11-09 12:51] LABS: FOLIC ACID 18.4 ng/mL (8.6-58.9)
--- NOTE | 2019-11-09 13:26 | 2DMMODE ---
[facility] [place] [place] [address] 2 D/M-MODE ECHOCARDIOGRAM Name: HOA LUNA Room #: 237-P [facility] IN .R.#: [id number] Admission: 11/08/19 Attend Phys: Reza Lindsey, Discharge: Date of : 42 Report #: [id number] THIS REPORT FOR: //name// APPROVED REPORT Study performed: 11/09/2019 09:26:46 EXAM: Comprehensive 2D, Doppler, and color-flow Echocardiogram BSA: 1.89 Indications Arrhythmia Diabetes Dyspnea CAD Cardiomyopathy Chest Pain Hypertension/HDD 2D Dimensions RVDd: 36.63 mm IVSd: 11.00 (7-11mm) LVOT Diam: 18.72 (18-24mm) LVDd: 46.64 mm PWd: 10.89 (7-11mm) Ascending Ao: 27.53 (22-36mm) LVDs: 33.52 (25-40mm) Aortic Root: 25.00 mm IVC: 21.00 mm Volumes Left Atrial Volume (Systole) Single Plane 4CH: 61.93 mL Single Plane 2CH: 52.09 mL LA ESV Index: 35.00 mL/m2 Aortic Valve AoV Peak Phillip.: 2.15 m/s AO Peak Gr.: 16.61 mmHg LVOT Max P.95 mmHg AO Mean Gr.: 9.85 mmHg LVOT Mean P.45 mmHg AO V2 Mean: 1.44 m/s LVOT Max V: 0.85 m/s AO V2 VTI: 56.44 cm LVOT Mean V: 0.56 m/s BRYNN (VTI): 1.20 cm2 LVOT V1 VTI: 24.61 cm BRYNN Vmax: 1.09 cm2 SV (LVOT): 67.71 mL Mitral Valve [facility] [place] [address] 2 D/M-MODE ECHOCARDIOGRAM Name: ZAN LUNATY Denise Room #: 237-P [facility] IN .R.#: [id number] Admission: 11/08/19 Attend Phys: Reza Lindsey, Discharge: Date of : 42 Report #: [id number] E/A Ratio: 1.7 MV Decel. Time: 202.71 ms MV E Max Phillip.: 1.29 m/s MV A Phillip.: 0.74 m/s MV PHT: 58.79 ms IVRT: 78.43 ms Pulmonary Valve PV Peak Phillip.: 0.93 m/s PV Peak Gr.: 3.53 mmHg Pulmonary Vein P Vein S: 0.54 m/s P Vein A: 0.17 m/s P Vein D: 0.66 m/s P Vein A Dur.: 73.8 msec P Vein S/D Ratio: 0.82 Tricuspid Valve TR Peak Phillip.: 2.53 m/s TR Peak Gr.: 25.69 mmHg PA Pressure: 36.00 mmHg Left Ventricle The left ventricle is normal size. There is normal LV segmental wall motion. There is normal left ventricular wall thickness. The left ventricular systolic function is normal. The left ventricular ejection fraction is within the normal range. LVEF is 50-55%. This study is not technically sufficient to allow evaluation of the LV diastolic function. Right Ventricle The right ventricle is normal size. The right ventricular systolic function is normal. Atria Left atrium is dilated. The right atrium size is normal. Aortic Valve Aortic valve is calcified, trileaflet. Trace to mild aortic regurgitation. Mild aortic stenosis. Mitral Valve Calcified anterior mitral leaflet. Mild to moderate mitral regurgitation. No evidence of mitral valve stenosis. Tricuspid Valve The tricuspid valve is normal in structure. There is trace to mild tricuspid regurgitation. Estimated PAP 35 mmHg. There is mild [facility] [address] [place] [address] 2 D/M-MODE ECHOCARDIOGRAM Name: HOA LUNA Room #: 237-P [facility] IN ..#: [id number] Admission: 11/08/19 Attend Phys: Reza Lindsey, Discharge: Date of : 42 Report #: [id number] pulmonary hypertension. Pulmonic Valve The pulmonary valve is normal in structure. Trace pulmonic regurgitation. Great Vessels The aortic root is normal in size. IVC is dilated and collapses >50% with inspiration. Pericardium There is no pericardial effusion. <Conclusion> The left ventricular systolic function is normal. There is normal LV segmental wall motion. LVEF is 50-55%. Aortic valve is calcified, trileaflet. Trace to mild aortic regurgitation. Mild aortic stenosis. Calcified anterior mitral leaflet. Mild to moderate mitral regurgitation. There is trace to mild tricuspid regurgitation. Estimated pulmonary artery pressure of 35 mmHg. There is no pericardial effusion. <ELECTRONICALLY SIGNED> By: Cameron Lizarraga MD, [facility] 11/09/19 1325 1325 1325 Cameron Lizarraga MD, [facility] /INF
[2019-11-09 16:15] LABS: ABSOLUTE NEUTROPHILS 4.4 thou/uL (1.4-8.2); BASOPHILS 0.6 % (0.0-2.0); EOSINOPHILS 7.6 % (0.0-3.0); HEMATOCRIT 26.7 % (37.0-47.0); HEMOGLOBIN 8.4 gm/dL (12.0-15.0); LYMPHOCYTES 28.8 % (24.0-44.0); MCH 27.2 pg (26.0-34.0); MCHC 31.5 g/dL (28.0-37.0); MCV 86.4 fL (80.0-100.0); MONOCYTES 6.9 % (1.0-8.0); PLATELET COUNT 233 thou/uL (150-400); POLYS 56.1 % (36.0-66.0); RBC 3.09 mil/uL (4.20-5.00); RDW 17.2 % (10.5-14.5); WBC 7.9 thou/uL (4.0-11.0)
[2019-11-09 16:17] LABS: APTT 65.9 Seconds (24.5-32.8); PROTIME 20.7 Seconds (9.3-11.4)
--- NOTE | 2019-11-09 19:30 | NUR ---
PT TRANSFERED TO ICU FROM CCU POST CARDIAC CATH PROCEDURE. POST PROCEDURE VITALS AND ASSESSMENTS CHARTED. ARRIVED ON ANGIOMAX. COMPLETED INFSUION. NORMAL SALINE INFUSING AT 100 ML/HR. RIGHT GROIN ACCESS SITE. DRESSING CLEAN, DRY, INTACT. SOFT, NO HEMATOMA. OFF BEDREST AT 1730. NOTED SLIGHT LEFT SIDED FACIAL DROOP, DR. RUFFIN AWARE. WILL CONTINUE TO MONITOR FOR ANY CHANGES. CONSULT TO DR. SHASHI GROSSMAN.
[2019-11-10] VITALS (18 sets, daily range): BP systolic 100–152; BP diastolic 31–128
--- NOTE | 2019-11-10 | NUR ---
Pt resting comfortably. Sinus rhythm on monitor with episodes of trigemeny and bigemeny. Report given to Baylee ESCOBAR who assumed pt's care at midnight.
[2019-11-10 03:07] LABS: GLYCOHEMOGLOBIN (HGB A1C) 6.7 % (4.8-5.6)
[2019-11-10 03:37] LABS: ALBUMIN 2.8 g/dL (3.4-5.0); CALCIUM 9.1 mg/dL (8.5-10.1); CREATININE 1.1 mg/dL (0.6-1.0); TOTAL BILIRUBIN 0.2 mg/dL (<0.1-1.0); TOTAL PROTEIN 6.1 g/dL (6.4-8.2); TROPONIN-I 0.24 ng/mL (<0.06)
[2019-11-10 04:57] LABS: HEMATOCRIT 25.5 % (37.0-47.0); HEMOGLOBIN 8.2 gm/dL (12.0-15.0); MCH 27.4 pg (26.0-34.0); MCV 85.8 fL (80.0-100.0); RBC 2.97 mil/uL (4.20-5.00); RDW 17.2 % (10.5-14.5); WBC 7.9 thou/uL (4.0-11.0)
--- NOTE | 2019-11-10 06:53 | NUR ---
ASSUMED CARE OF PT AROUND 0100. ASSMTS DOCUMENTED. PT ABLE TO SLEEP MOST OF THIS TIME. C/O PAIN IN R SHOULDER, LIDOCAINE PATCH APPLIED W/ PARTIAL RELIEF. R GROIN SITE DRESSING IS C/D/I, SOFT AND PT DENIED PAIN AT THAT SITE. UP TO BSCX2, O2 SAT'S DROPPED TO 88 WITHOUT THE 2L O2 NC. CURRENTLY RESTING AND PROGRESSING TOWARDS POC GOALS.
--- NOTE | 2019-11-10 09:19 | CATHLAB ---
[facility] [address] [place] [address] INVASIVE PROCEDURE REPORT Name: HOA LUNA Room #: 237-P [facility] IN ..#: [id number] Admission: 11/08/19 Attend Phys: Reza Lindsey, Discharge: Date of : 42 Report #: [id number] THIS REPORT FOR: //name// APPROVED REPORT Study performed: 11/09/2019 11:15:01 Patient Details Patient Status: In-Patient Room #: The patient is a 79 year-old female Event Personnel Diogo Patel Sales Representative Cash Registers, Charmaine Gallagher RN RN, Vandana Thompson RTR Perri Bishop Nancy RTR, TOUR BUS DRIVER Monitor Procedures Performed Art Access - R femoral artery* Left Heart Cath w/or w/o Coronaries [id number] [facility] [address] w/wo Plasty Single LAD 059422 20355 Initial Mod Sed Same Phys/QHP Gr5y 930035 02015 Mod Sed Same Phys/QHP Ea 063747 Hemostasis w/ Mynx Indication Arrhythmia, Unstable angina , Chest pain, The patient presented with unstable angina and ventricular tachycardia. Risk Factors Obesity, Hypercholesterolemia, Coronary Artery DiseaseHypertension Previous Procedures/Diagnoses Previous PCI Procedure Narrative The Right Groin^ was infiltrated with 1% Lidocaine subcutaneous anesthesia. A PINNACLE 6FR Sheath #[id number] sheath was inserted into the RFA^. Coronary angiography was performed using coronary diagnostic catheters. The right coronary system was accessed and visualized with a 6FR JR 4 #[id number] catheter. The left coronary system was accessed and visualized with a 6FR JL4 #[id number] catheter. The left ventricle was accessed and visualized with a 6FR JR 4 #[id number] catheter. Left ventricular/Aortic Valve gradient assessed via catheter pullback. Pre-demployment femoral angiogram was performed . Closure device was deployed with a 6 Fr MYNXGRIP 6/7F #[id number]. There was no hematoma. [facility] [address] [place] [address] INVASIVE PROCEDURE REPORT Name: HOA LUNA Room #: 237-P [facility] IN [facility].#: [id number] Admission: 11/08/19 Attend Phys: Reza Lindsey, Discharge: Date of : 42 Report #: [id number] Intraoperative Conscious Sedation Sedation start time: 11:09 Case end Time: 13:31 Fentanyl 75 mcg Versed 1 mg Fluoro Time: 45.40 minutes Dose: DAP 46318.00 cGycm2 9189 mGy Contrast Type and Amount: Visipaque 350 ml Coronary Angiography The patient's coronary anatomy is left dominant. Diagnostic Cath Left Main The left main artery is a short segment, patent with no flow-limiting lesions. LAD There is a severe ostial stenosis, at least 80%. There is a stent in the proximal segment, patent. Just after the stent, there is a severe occlusion at the bifurcation of the first diagonal artery, 90%. Diagonal 1 This is a small-caliber vessel with a severe ostial stenosis. Circumflex The left circumflex artery is a dominant vessel supplying several OM vessels and a small left PDA. OM1 This is a small-caliber vessel, patent with no flow-limiting lesions. OM2 This is a moderate size caliber vessel with a borderline stenosis at the ostium, 60-70%. OM3 This is a small-caliber vessel, patent with no flow-limiting lesions. L PDA This is a small-caliber vessel, patent with no flow-limiting lesions. Right Coronary This is a small-caliber vessel, with no flow-limiting lesions. Left Ventriculography Left Ventriculography was not performed. An LVEDP was measured and there is no gradient across the outflow tract. Hemodynamics The aortic pressure is 155/66 mmHg with a mean of 93 mmHg. The left ventricular pressure is 153/19 mmHg with a mean of mmHg. The left ventricular end diastolic pressure is 36 mmHg. PCI Technique Lesion Percutaneous coronary intervention was performed on the ostial left [facility] [address] [place] [address] INVASIVE PROCEDURE REPORT Name: HOA LUNA Room #: 237-P [facility] IN .R.#: [id number] Admission: 11/08/19 Attend Phys: Reza Lindsey, Discharge: Date of : 42 Report #: [id number] anterior descending artery segment. The lesion stenosis prior to intervention was 80% with SELMA 3 flow. A VISTA 6FR XB 3 #[id number] Guide Catheter was used to engage the ostium. A Luge Wire .014 x 182CM #[id number] Interventional Guidewire was used to cross the lesion. BALLOON DILATION A Balloon catheter MINI TREK RX 2.0 X 12 #[id number] was inserted and inflated up to 14.00atm for 24seconds. Additional Inflation: 14.00atm for 19seconds. A balloon catheter NC Trek 2.25 x 12 was inserted and inflated up to 8 diamond for 21 seconds. Additional inflation: 16 diamond for 20 seconds. 2.5 x 10 Angiosculpt was inserted and inflated up to 9 diamond for 42 seconds. Final angiography reveals 70 % stenosis with SELMA 3 flow. COMMENTS Using the angiosculpt balloon, there was a moderate waist in the balloon with inflation at the ostium. The ostial stenosis is not amenable to PCI. Recommend CABG. PCI Technique Lesion 2 Percutaneous Coronary Intervention was performed on the proximal/mid left anterior descending artery segment. The lesion stenosis prior to intervention was 95% with SELMA 3 flow. A VISTA 6FR XB 3 #[id number] Guide Catheter was used to engage the ostium. A Luge Wire .014 x 182CM #[id number] Interventional Guidewire was used to cross the lesion. Balloon Dilation A Balloon catheter MINI TREK RX 2.0 X 12 #[id number] was inserted and inflated up to 18.00atm for 26seconds. Stent Deployment A drug-eluting stent XIENCE EMERSON RX 2.25 X 15 #[id number] was inserted and inflated up to 10.00atm for 38seconds. A balloon catheter, 1.5 x 10 Euphora RX was inserted and inflated up to 14 diamond for 22 seconds. An additional balloon catheter, 1.2 x 12 Mini Trek RX was inserted and inflated up to 18 diamond for 9 seconds. An additional balloon catheter, 1.5 x 6 Euphoria RX was inserted and inflated up to 20 diamond for 42 seconds. Additional inflation: 20 diamond for 17 seconds Post Stent Deployment Balloon Dilation A Balloon catheter Euphora RX 2.0 x 6 #[id number] was inserted and inflated up to 12.00atm for 33seconds. Additional Inflation: 24.00atm [facility] [address] [place] [address] INVASIVE PROCEDURE REPORT Name: HOA LUNA Room #: 237-P ADM IN .R.#: [id number] Admission: 11/08/19 Attend Phys: Reza Lindsey, Discharge: Date of : 42 Report #: [id number] for 33seconds. A balloon catheter, 2.25 x 8 Euphora NC was inserted and inflated up to 24 diamond for 39 seconds. A balloon catheter, 2.5 x 8 Trek NC RX was inserted and inflated up to 24 diamond for 38 seconds. A balloon catheter, 2.75 x 8 Euphora NC RX was inserted, but unable to cross lesion. Final angiography reveals 40 % stenosis with SELMA 3 flow. Comments After the stent was deployed, the mid segment of the stent was not fully expanded. Multiple balloon inflations were performed starting from 1.5 mm and up. Attempts at passing a angiosculpt balloon was unsuccessful. The last dilation was with a 2.5 mm noncompliant balloon, but the mid segment of the stent was still not fully dilated. Leaving a residual stenosis of approximately 40%. PCI Technique Lesion 3 Percutaneous Coronary Intervention was performed on the proximal left anterior descending artery segment. Conclusion 1. Placement of a drug-eluting stent into the proximal/midsegment of the LAD. There is a residual stenosis within the mid segment of the stent. 2. Balloon angioplasty of the ostium of the LAD performed, however a significant residual stenosis is still present. 3. Left dominant system, borderline stenosis at the ostium of a moderate size OM vessel. 4. Recommend CV surgical consultation. <ELECTRONICALLY SIGNED> By: Diogo Patel MD 11/10/19917 7 7 Diogo Patel MD /INF
--- NOTE | 2019-11-10 13:02 | EKG ---
[place] [address] [facility] [place] [address] ELECTROCARDIOGRAM REPORT Name: HOA LUNA Room #: 237- ADM IN M.R.#: [id number] Admission: 11/08/19 Attend Phys: Reza Lindsey MD Discharge: Date of : 42 Report #: [id number] THIS REPORT FOR: //name// [facility] Test Date: 2019-11-09 Test Time: 14:46:59 Pat Name: HOA LUNA Department: Room: 237 Gender: F Staff Physical Therapist: Mimi BLAKE : 1940 Requested By: Diogo Patel Order Number: [id number] MD: Cameron Lizarraga Measurements Intervals [place] Rate: 92 P: 57 [place]: 183 QRS: 43 QRSD: 97 T: 16 QT: 441 QTc: 546 Interpretive Statements Sinus rhythm Ventricular trigeminy Minimal ST depression, lateral leads Prolonged QT interval Compared to ECG 11/08/2019 19:16:56 no significant change was found Electronically Signed On 11-10-2019 13:02:14 COMPRESSOR ASSEMBLER by Cameron Lizarraga [email or web address] <ELECTRONICALLY SIGNED> By: Cameron Lizarraga MD, [facility] 11/10/19 1302 1446 1446 Cameron Lizarraga MD, [facility] /EPI
--- NOTE | 2019-11-10 13:42 | EKG ---
[place] [address] [employer] [place] [address] ELECTROCARDIOGRAM REPORT Name: HOA LUNA Room #: 237- ADM IN M.R.#: [id number] Admission: 11/08/19 Attend Phys: Reza Lindsey MD Discharge: Date of : 44 Report #: [id number] THIS REPORT FOR: //name// [facility] Test Date: 2019-11-10 Test Time: 07:41:30 Pat Name: HOA LUNA Department: Room: 237 Gender: F Tailing Hand: ROSALINE : 1940 Requested By: Diogo Patel Order Number: [id number] MD: Cameron Lizarraga Measurements Intervals [place] Rate: 57 P: 68 [place]: 179 QRS: 34 QRSD: 114 T: 64 QT: 457 QTc: 445 Interpretive Statements Sinus rhythm Nonspecific ST segment abnormality Compared to ECG 11/08/2019 19:16:56 Premature ventricular complexes are no longer present Electronically Signed On 11-10-2019 13:41:55 YARD MANAGER by Cameron Lizarraga [email or web address] <ELECTRONICALLY SIGNED> By: Cameron Lizarraga MD, [facility] 11/10/19 1341 0 Cameron Lizarraga MD, [facility] /EPI
--- NOTE | 2019-11-10 16:07 | NUR ---
PT ADMITTED RELATED TO BRONCHOSCOPY,VIDEO ASSISTED THOROSCOPY, RIGHT LUNG. CM REVIEWED CHART AND SPOKE WITH CARE TEAM. CM MET WITH PT AT BEDSIDE THIS DAY. PT IS A&O X4. CM ROLE INTRODUCED. PT INIDCATED THAT SHE RESIDES IN [facility] WITH HER NEPHEW WITH 2 STEPS TO ENTER AND NO STEPS INSIDE. PT INDICATED SHE HAD USED A CANE TO ASSIST WITH MOBILITY AT ALL TIME [employer]IX CONSULTANT. PT INDICATED HER FAMILY HAD BOUGHT HER A FWW IN THE PAST BUT THAT SHE DOESN'T LIKE/USE IT. PT INDICATED SHE HAD CHCS IN THE PAST. PT INDICATED NO O2 OR BREATHING SUPPLIES [employer] CONSULTANT. PT INDICATED SHE HOPES TO RETURN HOME ONCE MEDICALLY STABLE. CARE TEAM ANTICIPATE THAT PT WILL HAVE A CABG WEDNESDAY. CM TO FOLLOW INDICATED WITH DC PLANNING.
--- NOTE | 2019-11-10 19:40 | NUR ---
Pt picked on her left cheek, small bleeding noted. Pressure with gauze applied. Educate pt regarding integrillin gtt that she is currently on,will needs to follow up with her .
--- NOTE | 2019-11-10 19:59 | NUR ---
PT ASSESSMENTS DOCUMENTED. PT WITH BIGEMENY, TRIGEMENY ON MONTIOR - THEN WILL CONVERT TO SINUS JESSICA. CARDIOLOGY AWARE. EPISODES THIS AFTERNOON OF 5 BEAT RUNS OF V-TACH. PT ASYMPTOMATIC. CARDIOLOGY NOTIFIED. AMIO GTT STARTED. VSS THROUGH OUT THE DAY. CONTINUED WORK UP BY CTS FOR SURGERY BEGINNING OF NEXT WEEK. MAG 1.5 - STARTED ON ELECTROLYTE PROTOCOL. REPLACED PO. INTEGRILIN GTT INFUSING AND TO REMAIN UNTIL MORNING OF SURGERY.
--- NOTE | 2019-11-10 22:50 | NUR ---
Pt pulled out IV and told me that she doesn't think she needs to be on blood thinner. Educate her multiple times for reason for her to be on integrillin gtt for now. New IV obtained, continue integrillin gtt per order.
[2019-11-11] VITALS (18 sets, daily range): BP systolic 92–165; BP diastolic 43–77
[2019-11-11 04:07] LABS: HEMATOCRIT 27.4 % (37.0-47.0); HEMOGLOBIN 8.7 gm/dL (12.0-15.0); MCH 27.3 pg (26.0-34.0); MCHC 31.7 g/dL (28.0-37.0); MCV 86.1 fL (80.0-100.0); RBC 3.19 mil/uL (4.20-5.00); RDW 17.3 % (10.5-14.5); WBC 9.8 thou/uL (4.0-11.0)
--- NOTE | 2019-11-11 04:13 | NUR ---
No event in this shift. Pt remains stable. Denies of any CP or chest discomfort this am. SR with occasional trigiminy PVCs notes on cardiac specialist. She denies of any symptoms. BP is stable. Continue to monitor her closely.
[2019-11-11 04:14] LABS: CALCIUM 9.5 mg/dL (8.5-10.1); CREATININE 1.1 mg/dL (0.6-1.0); MAGNESIUM 1.4 mg/dL (1.8-2.4); POTASSIUM 5.3 mmol/L (3.5-5.1)
--- NOTE | 2019-11-11 06:50 | NUR ---
Pt is noted to pick on her nose, causing nose bleed. Gauze with pressure applied. visited and order to cut down integrillin to 1mcg/kg/min. Report pass on to am shift RN.
--- NOTE | 2019-11-11 12:04 | EKG ---
[place] [address] [facility] [place] [address] ELECTROCARDIOGRAM REPORT Name: HOA LUNA Room #: 237- ADM IN M.R.#: [id number] Admission: 11/08/19 Attend Phys: Reza Lindsey MD Discharge: Date of : 44 Report #: [id number] THIS REPORT FOR: //name// [facility] Test Date: 2019-11-11 Test Time: 08:20:13 Pat Name: HOA LUNA Department: Room: 237 Gender: F Head Men'S Golf Coach: Alexander AGUIRRE : 1940 Requested By: Cameron iLzarraga Order Number: [id number] MD: Cameron Lizarraga Measurements Intervals [place] Rate: 61 P: 97 MS: 236 QRS: 29 QRSD: 94 T: 49 QT: 389 QTc: 392 Interpretive Statements Sinus rhythm Ventricular trigeminy Compared to ECG 11/10/2019 07:41:30 Ventricular premature complex(es) now present Electronically Signed On 11-11-2019 12:03:54 RN PRIVATE DUTY by Cameron Lizarraga [email or web address] <ELECTRONICALLY SIGNED> By: Cameron Lizarraga MD, [facility] 11/11/19 1203 9 9 Cameron Lizarraga MD, [facility] /EPI
--- NOTE | 2019-11-11 17:00 | NUR ---
PATIENT DENIES CHEST PAIN THIS AFTERNOON. SHE EXPRESSED SHE HAS SOME FAINT GENERALIZED PAIN, BUT NO CHEST PAIN. SHE HAS BEEN UP OUT OF BED MULTIPLE TIMES TODAY. EDUCATION PROVIDED THROUGHOUT THE DAY ON THE IMPORTANCE OF THE MEDICATIONS SHE IS TAKING AND THE GOALS THROUGHOUT HER RECOVERY FROM SURGERY. SHE EXPRESSES SHE UNDERSTANDS. SHE IS FORGETFUL, HOWEVER ORIENTED, AND WILL NEED SOME REMINDERS THROUGHOUT HER TIME.
--- NOTE | 2019-11-11 17:30 | NUR ---
PATIENT IMPULSIVE AND GETS OUT OF CHAIR INTERMITTENTLY THROUGHOUT THE DAY. SHE WAS REMINDED FREQUENTLY TO NOT GET OUT OF BED OR THE CHAIR ON HER OWN BECAUSE OF ALL THE LINES AND HER RISK OF FALLING. SHE EXPRESSED SHE UNDERSTOOD AND FORGOT. FREQUENT OBSERVATION PROVIDED.
--- NOTE | 2019-11-11 18:15 | NUR ---
PATIENT PULLS OFF DRESSING ON FACE WHERE SHE SCRATCHED A LITTLE AREA OF SKIN AND IT WAS BLEEDING, WHICH STARTED ON ESTATE TAX EXAMINER. THIS WAS MINIMALLY BLEEDING AND A NEW DRESSING WAS PLACED. NURSE EXPRESSED TO HER THAT IT NEEDS TO STAY IN PLACE AND SHE EXPRESSED SHE DIDN'T KNOW THAT AND THAT SHE THOUGHT IT WAS DONE BLEEDING. EDUCATION PROVIDED.
[2019-11-12] VITALS (27 sets, daily range): BP systolic 107–144; BP diastolic 34–90
--- NOTE | 2019-11-12 01:00 | NUR ---
Pt reported feeling chest pain in mid sternum. She described as chest being tight ,also report shortness of breath. She stated " I never had a pain like this before, this is the worse I ever been" She rated her pain 20 out of pain scale of 10. SR with frequent PVCs noted. No signs of poor perfusion. Will admin Nitrostat and EKG.
--- NOTE | 2019-11-12 01:34 | NUR ---
Pt's Chest pain improved with Nitrostat. Her pain came down to 3 after 3rd dose. Call regarding of CP event and EKG result. Order Nitrostat for CP,no intervention at this time. Continue to monitor any changes.
[2019-11-12 05:40] LABS: HEMATOCRIT 27.7 % (37.0-47.0); HEMOGLOBIN 8.8 gm/dL (12.0-15.0); MCH 27.3 pg (26.0-34.0); MCHC 31.8 g/dL (28.0-37.0); RBC 3.22 mil/uL (4.20-5.00); RDW 17.5 % (10.5-14.5); WBC 8.2 thou/uL (4.0-11.0)
[2019-11-12 05:52] LABS: POTASSIUM 4.8 mmol/L (3.5-5.1)
[2019-11-12 05:56] LABS: CALCIUM 9.9 mg/dL (8.5-10.1)
--- NOTE | 2019-11-12 07:00 | NUR ---
No changes of conditions. Still having chest tighness this am,rate 2/10. Denies of any dyspnea. Bp stable. Integrillin is infusing per order. No sign of bleeding indicates. Report gave to am shift RN.
--- NOTE | 2019-11-12 11:49 | EKG ---
[place] [address] [facility] [employer] [place] [address] ELECTROCARDIOGRAM REPORT Name: HOA LUNA Room #: 237- ADM IN M.R.#: [id number] Admission: 11/08/19 Attend Phys: Reza Lindsye MD Discharge: Date of : 44 Report #: [id number] THIS REPORT FOR: //name// [facility] Test Date: 2019-11-12 Test Time: 10:38:53 Pat Name: HOA LUNA Department: Room: 237 Gender: F Last Remodeler Repairer: HANNAH : 1940 Requested By: Cameron Lizarraga Order Number: [id number] MD: Cameron Lizarraga Measurements Intervals [place] Rate: 51 P: 75 [place]: 182 QRS: 28 QRSD: 97 T: 64 QT: 472 QTc: 435 Interpretive Statements Sinus bradycardia Borderline low voltage, extremity leads Abnormal R-wave progression, late transition Compared to ECG 11/11/2019 08:20:13 Ventricular premature complex(es) no longer present Electronically Signed On 11-12-2019 11:48:25 LINE CREWMAN by Cameron Lizarraga [email or web address] <ELECTRONICALLY SIGNED> By: Cameron Lizarraga MD, [facility] 11/12/19 1148 1038 1038 Cameron Lizarraga MD, [facility] /EPI
--- NOTE | 2019-11-12 18:07 | NUR ---
ASSUMED CARE @ 0700 11/12/19, PT ASSESSMENTS AND VSS COMPLETE PER ICU PROTOCOL. INTEGRILIN RUNNING @ ORDERED DOSE, ORDER TO BE TURNED OFF @ 11/13/[address]. NO SIGNS OF BLEEDING NOTED. SURGERY CONSENT SIGNED. NPO AT MIDNIGHT. DR RUFFIN AND DR DANIELLE HERE DURING THE DAY TO ROUND. DR DANIELLE INFORMED THAT PT IS ON LOSARTAN AT NIGHT, PER THE PRE-OP CARDIAC SURGERY PROTOCOL, IT STATES TO DC CED INHIBITORS AND ARBS, RN INSTRUCTED TO LET THE INSURANCE ACCOUNT EXECUTIVE KNOW THAT IF SBP IS IN THE 110'S HOLD, WILL TELL INSURANCE ACCOUNT EXECUTIVE. PROGRESSING TOWARDS PLAN OF CARE.
--- NOTE | 2019-11-12 23:18 | NUR ---
INITIAL CHLORHEXIDINE BATH COMPLETED PER PREOPERATIVE CARDIAC SURGERY CHECKLIST.
[2019-11-13] VITALS (41 sets, daily range): BP systolic 83–152; BP diastolic 28–66
--- NOTE | 2019-11-13 06:27 | NUR ---
PATIENT ALERT AND ORIENTED X4, PAIN CONTROLLED WITH MEDICATION. ON 2L NASAL CANNULA. SECOND CHLORHEXIDINE BATH COMPLETED PRE-SURGERY. PLAN DISCUSSED WITH PATIENT, CONSENTS SIGNED. METOPROLOL AND MUPIROCIN GIVEN. REPORT GIVEN TO SURGERY STAFF. NO SIGNS OF ACUTE DISTRESS NOTED AT THIS TIME. PATIENT TRANSFERRED OFF THE UNIT WITH STAFF AT 0625.
--- NOTE | 2019-11-13 10:08 | EKG ---
[place] [address] [facility] [place] [address] ELECTROCARDIOGRAM REPORT Name: HOA LUNA Room #: 243-P ADM IN M.R.#: [id number] Admission: 11/08/19 Attend Phys: Reza Lindsey MD Discharge: Date of : 42 Report #: [id number] THIS REPORT FOR: //name// [facility] Test Date: 2019-11-12 Test Time: 01:16:54 Pat Name: HOA LUNA Department: Room: [facility] Gender: F Pickling Grader: marko : 1940 Requested By: Diogo Patel Order Number: [id number] MD: Cameron Lizarraga Measurements Intervals [place] Rate: 66 P: 222 AK: 208 QRS: 61 QRSD: 98 T: -49 QT: 406 QTc: 426 Interpretive Statements Sinus rhythm Ventricular trigeminy Nonspecific ST segment abnormality Baseline wander in lead(s) V1 Compared to ECG 11/11/2019 08:20:13 No significant change was found Electronically Signed On 11-13-2019 10:07:52 DISEASE INTERVENTION SPECIALIST by Cameron Lizarraga [email or web address] <ELECTRONICALLY SIGNED> By: Cameron Lizarraga MD, [facility] 11/13/19 1007 0116 0116 Cameron Lizarraga MD, [facility] /EPI
[2019-11-13 11:14] LABS: HEMATOCRIT 20.9 % (37.0-47.0); MCH 27.9 pg (26.0-34.0); MCV 87.1 fL (80.0-100.0)
[2019-11-13 11:15] LABS: RBC 2.4 mil/uL (4.20-5.00); RDW 15.6 % (10.5-14.5); WBC 14.5 thou/uL (4.0-11.0)
[2019-11-13 11:18] LABS: HEMOGLOBIN 6.7 gm/dL (12.0-15.0)
[2019-11-13 11:28] LABS: APTT 35.9 Seconds (24.5-32.8); FIBRINOGEN 180.5 mg/dL (210-360); INR 1.6; PROTIME 16.8 Seconds (9.3-11.4)
[2019-11-13 11:58] LABS: POC BE 3 mmol/L (-2.0 to +3.0); POC CA IONIZED 4.7 mg/dL (4.5-5.3); POC GLUCOSE 122 mg/dL (70-99); POC HCO3 27.8 mmol/L (22.0-26.0); POC HEMOGLOBIN 7.1 g/dL (12.0-15.0); POC POTASSIUM 4.3 mmol/L (3.5-5.1); POC SODIUM 136 mmol/L (136-145); POC pCO2 44.4 mmHg (35.0-45.0); POC pH 7.405 (7.360-7.450)
[2019-11-13 11:59] LABS: POC BE 4 mmol/L (-2.0 to +3.0); POC CA IONIZED 4.1 mg/dL (4.5-5.3); POC GLUCOSE 116 mg/dL (70-99); POC HCO3 27.4 mmol/L (22.0-26.0); POC HEMOGLOBIN 5.8 g/dL (12.0-15.0); POC POTASSIUM 4.6 mmol/L (3.5-5.1); POC SODIUM 136 mmol/L (136-145); POC pCO2 36.2 mmHg (35.0-45.0); POC pH 7.487 (7.360-7.450)
[2019-11-13 11:59] LABS: POC BE -2 mmol/L (-2.0 to +3.0); POC CA IONIZED 4.6 mg/dL (4.5-5.3); POC GLUCOSE 147 mg/dL (70-99); POC HCO3 23.5 mmol/L (22.0-26.0); POC HEMOGLOBIN 8.5 g/dL (12.0-15.0); POC POTASSIUM 4.6 mmol/L (3.5-5.1); POC SODIUM 137 mmol/L (136-145); POC pCO2 43.2 mmHg (35.0-45.0); POC pH 7.344 (7.360-7.450)
[2019-11-13 11:59] LABS: POC BE -1 mmol/L (-2.0 to +3.0); POC CA IONIZED 4.9 mg/dL (4.5-5.3); POC GLUCOSE 142 mg/dL (70-99); POC HCO3 23.9 mmol/L (22.0-26.0); POC HEMOGLOBIN 7.1 g/dL (12.0-15.0); POC POTASSIUM 5.1 mmol/L (3.5-5.1); POC SODIUM 136 mmol/L (136-145); POC pCO2 42.1 mmHg (35.0-45.0); POC pH 7.362 (7.360-7.450)
[2019-11-13 11:59] LABS: POC BE 2 mmol/L (-2.0 to +3.0); POC CA IONIZED 4.2 mg/dL (4.5-5.3); POC GLUCOSE 138 mg/dL (70-99); POC HCO3 26.6 mmol/L (22.0-26.0); POC HEMOGLOBIN 6.8 g/dL (12.0-15.0); POC POTASSIUM 5.4 mmol/L (3.5-5.1); POC SODIUM 135 mmol/L (136-145); POC pCO2 41.4 mmHg (35.0-45.0); POC pH 7.416 (7.360-7.450)
[2019-11-13 11:59] LABS: POC BE 5 mmol/L (-2.0 to +3.0); POC CA IONIZED 4.1 mg/dL (4.5-5.3); POC GLUCOSE 119 mg/dL (70-99); POC HCO3 27.7 mmol/L (22.0-26.0); POC HEMOGLOBIN 5.4 g/dL (12.0-15.0); POC SODIUM 136 mmol/L (136-145); POC pCO2 34.4 mmHg (35.0-45.0); POC pH 7.514 (7.360-7.450)
[2019-11-13 11:59] LABS: POC BE 4 mmol/L (-2.0 to +3.0); POC CA IONIZED 4.9 mg/dL (4.5-5.3); POC GLUCOSE 121 mg/dL (70-99); POC HCO3 28.5 mmol/L (22.0-26.0); POC HEMOGLOBIN 8.2 g/dL (12.0-15.0); POC POTASSIUM 4.7 mmol/L (3.5-5.1); POC SODIUM 137 mmol/L (136-145); POC pCO2 45.2 mmHg (35.0-45.0); POC pH 7.407 (7.360-7.450)
[2019-11-13 11:59] LABS: POC BE -2 mmol/L (-2.0 to +3.0); POC CA IONIZED 4.2 mg/dL (4.5-5.3); POC GLUCOSE 108 mg/dL (70-99); POC HCO3 24.3 mmol/L (22.0-26.0); POC HEMOGLOBIN 6.8 g/dL (12.0-15.0); POC SODIUM 141 mmol/L (136-145); POC pCO2 48.4 mmHg (35.0-45.0); POC pH 7.309 (7.360-7.450)
[2019-11-13 13:26] LABS: BE(vivo) 4.4 mmol/L (-2 to +3); PCO2 39.8 mmHg (35.0-45.0); PO2 127.4 mmHg (80.0-100.0)
[2019-11-13 13:33] LABS: HEMATOCRIT 28.3 % (37.0-47.0); MCHC 32.3 g/dL (28.0-37.0); MCV 86.6 fL (80.0-100.0); RBC 3.26 mil/uL (4.20-5.00); RDW 15.6 % (10.5-14.5); WBC 22.1 thou/uL (4.0-11.0)
[2019-11-13 13:35] LABS: HEMOGLOBIN 9.1 gm/dL (12.0-15.0)
[2019-11-13 13:38] LABS: CALCIUM 8.7 mg/dL (8.5-10.1); CREATININE 1.1 mg/dL (0.6-1.0)
[2019-11-13 13:40] LABS: INR 1.2; MAGNESIUM 2.2 mg/dL (1.8-2.4); PROTIME 12.3 Seconds (9.3-11.4)
--- NOTE | 2019-11-13 14:01 | NUR ---
PT ARRIVED FROM OR AT 1245 WITH OR STAFF, ANETHSTESIA AND SURGEON. PLACED ON MONITOR. LABS DRAWN. MEDS ORDERED. TURN OFF SEDATION. PACER ON. SON AT BEDSIDE.
[2019-11-13 14:37] LABS: BE(vivo) -4.4 mmol/L (-2 to +3); PCO2 39.8 mmHg (35.0-45.0); PO2 127.4 mmHg (80.0-100.0)
--- NOTE | 2019-11-13 16:37 | NUR ---
PT IS S/P CABG THIS DAY. PT IS CURRENTLY SEDATED AND INTUBATED. CM TO FOLLOW UP AND ASSIST WITH DC NEEDS INDICATED.
[2019-11-13 18:01] LABS: BE(vivo) -4.7 mmol/L (-2 to +3); HCO3 20.6 mmol/L (22.0-26.0); PCO2 38.6 mmHg (35.0-45.0); PO2 106.3 mmHg (80.0-100.0); pH 7.345 (7.360-7.450); sO2 97.6 % (92.0-98.0)
[2019-11-14] VITALS (18 sets, daily range): BP systolic 115–200; BP diastolic 42–145
[2019-11-14 05:24] LABS: CALCIUM 8.5 mg/dL (8.5-10.1); CREATININE 1.1 mg/dL (0.6-1.0); POTASSIUM 4.5 mmol/L (3.5-5.1)
[2019-11-14 05:25] LABS: HEMATOCRIT 24.4 % (37.0-47.0); HEMOGLOBIN 7.9 gm/dL (12.0-15.0); MCH 28.3 pg (26.0-34.0); MCHC 32.5 g/dL (28.0-37.0); MCV 86.9 fL (80.0-100.0); RBC 2.8 mil/uL (4.20-5.00); RDW 16.1 % (10.5-14.5)
--- NOTE | 2019-11-14 06:00 | NUR ---
PT HAS BEEN AWAKE AMOST OF NIGHT. EARLIER SCREAMING IN PAIN AND AGITATED. REFUSED TO TURN NOR ANY CARES. STATED SHE JUST WANTED TO . PT IS MUCH MORE CALM AT THIS HOUR. DRESSING DRY AND INTACT REMAINS PACED TPM SET AT 70 BATHED PULSES INTACT. CARDENE GTT 2.5 MG INSULIN AT 5 UNITS. WILL CONT TO MONITOR.
--- NOTE | 2019-11-14 06:00 | NUR ---
TOTAL OF 400 CC FROM MED AND PLEURAL TUBE 1000 CC UO THIS SHIFT PAYTON DRAIN INTACT. WILL CONT TO MONITOR
--- NOTE | 2019-11-14 08:00 | EKG ---
[place] [address] [facility] [place] [address] ELECTROCARDIOGRAM REPORT Name: HOA LUNA Room #: 243- ADM IN M.R.#: [id number] Admission: 11/08/19 Attend Phys: Reza Lindsey MD Discharge: Date of : 42 Report #: [id number] THIS REPORT FOR: //name// [facility] Test Date: 2019-11-14 Test Time: 07:54:54 Pat Name: HOA LUNA Department: Room: 243 Gender: F Deburring Technician: ROSALINE : 1940 Requested By: Anthony Duncan Order Number: [id number] MD: Efrain Ndiaye Measurements Intervals [place] Rate: 60 P: 55 [place]: 187 QRS: 33 QRSD: 91 T: 30 QT: 464 QTc: 464 Interpretive Statements Sinus rhythm Borderline low voltage, extremity leads ST elevation suggests acute pericarditis Compared to ECG 11/12/2019 10:38:53 ST (T wave) deviation now present Sinus bradycardia no longer present Electronically Signed On 11-14-2019 7:59:29 KNOTTER HAND by Efrain Ndiaye [email or web address] <ELECTRONICALLY SIGNED> By: Efrain Ndiaye MD 11/14/19 0759 0754 0754 Efrain Ndiaye MD /EPI
--- NOTE | 2019-11-14 09:27 | NUR ---
Assess due to length of stay and RD consult received for education. Pt s/p CABG x 3 on 11/13. Remains in ICU. Was eating 80-100% past week prior to surgery. Wts usually 170-180s past year stable throughout admit, except today up to 191. BG 113-205. High triglycerides 245. Low nutrition risk and will follow up again once transferred out of ICU to determine any nutrition education needs.
--- NOTE | 2019-11-14 15:23 | NUR ---
ASSUMED CARE @ 0700 11/14/2019, PT ASSESSMENTS AND VSS COMPLETE PER ICU PROTOCOL. PT STILL ON CARDENE TO MAINTAIN SBP BELOW 140, DR DANIELLE AND WHITLEY INFORMED, PT PUT BACK ON LOSARTAN. WILL TRY TO WEAN OFF CARDENE.
[2019-11-15] VITALS (28 sets, daily range): BP systolic 92–178; BP diastolic 43–80
[2019-11-15 06:12] LABS: HEMATOCRIT 22.7 % (37.0-47.0); HEMOGLOBIN 7.3 gm/dL (12.0-15.0); MCH 28.2 pg (26.0-34.0); MCHC 32.3 g/dL (28.0-37.0); MCV 87.4 fL (80.0-100.0); RBC 2.6 mil/uL (4.20-5.00); WBC 14.3 thou/uL (4.0-11.0)
[2019-11-15 07:02] LABS: CALCIUM 8.9 mg/dL (8.5-10.1); POTASSIUM 4.1 mmol/L (3.5-5.1)
--- NOTE | 2019-11-15 08:42 | NUR ---
SEE [employer] FOR ASSESSMENT. PT CALMER, LESS AGITATED AFTER HALDOL GIVEN. GOOD PAIN CONTROL WITH HYDROCODONE. CARDENE OFF SBP<160. DID PULL OUT RIJ INTRODUCER THIS AM STILL RESTLESS AND CONFUSED. 02 1L NC. IS UP TO 500 WITH GOOD COUGH EFFORT. OSAT 98. CT -SM AMT OF LAURA. PROGRESSING TOWARD GOALS. CONT PLAN OF CARE
--- NOTE | 2019-11-15 10:43 | O ---
[facility] [place] [address] OPERATIVE REPORT Name: HOA LUNA Room #: 243-P ADM IN M.R.#: [id number] Admission: 11/08/19 Attend Phys: Reza Lindsey MD Discharge: Date of : 44 Report #: [id number] THIS REPORT FOR: //name// CC: Diogo Kinney DATE OF SERVICE: 11/13/2019 PREOPERATIVE DIAGNOSIS: Coronary artery disease. POSTOPERATIVE DIAGNOSIS: Coronary artery disease. OPERATION: Coronary artery bypass x 3 including left internal mammary artery to left anterior descending artery; saphenous vein to diagonal and marginal 2 and endoscopic harvest, left greater saphenous vein. SURGEON: Jamel Rodriguez MD FRUIT OR NUT GROWER: LUIS MANUEL Yeboah. ANESTHESIA: General. INDICATIONS: The patient is a 79-year-old with coronary artery disease. The patient was seen after catheterization showed the lesion was not amenable to angioplasty by Dr. Patel. The patient presented with ventricular arrhythmias. FINDINGS AND TECHNIQUE: After general anesthesia was established, saphenous vein was harvested using an endoscopic approach and prepared for use as a conduit. Exposure was obtained through median sternotomy. Left internal mammary artery was harvested. Pericardial well was made. Cannulation sutures were placed. Heparin was given. Aorta was cannulated. Right atrium was cannulated. Cardioplegia needle was positioned in the aortic root. Retrograde cardioplegic catheter was placed in coronary sinus. Cardiopulmonary bypass was established. Aorta was cross clamped. Antegrade and then retrograde cardioplegia were given. Ice was poured in the pericardial well. The heart was stopped. During electromechanical arrest, the distal anastomoses were performed and end-to-side anastomosis was made between vein and the second marginal artery. Cold cardioplegia was given. The same segment of vein was sewn in end-to-side fashion to the diagonal artery. Cold cardioplegia was given. Left internal mammary artery was sewn in end-to-side fashion to the left anterior descending artery. The anastomosis was checked with the temperature technique. Cold cardioplegia was given. One proximal anastomosis was performed. When this was complete, warm retrograde cardioplegia was given followed by warm continuous [facility] [address] [place] [address] OPERATIVE REPORT Name: HOA LUNA Room #: 243-P ADM IN M.R.#: [id number] Admission: 11/08/19 Attend Phys: Reza Lindsey MD Discharge: Date of : 42 Report #: [id number] blood to the coronary sinus. When this infusion was complete, the crossclamp was removed. De-airing maneuvers were performed. The anastomoses were inspected and found to be satisfactory. As the patient warmed, nice cardiac activity resumed, chest tubes and pacing wires were placed. A marker was placed around the proximal anastomoses. When the patient was warmed, she was weaned from cardiopulmonary bypass. Venous cannula was removed. Protamine was given. The aortic cannula was removed. Flows were measured in the bypass grafts. When hemostasis was satisfactory, chest was closed in the usual fashion. The patient was taken to the Intensive Care Unit in good condition having tolerated the procedure well. All counts reported as correct. <ELECTRONICALLY SIGNED> By: Jamel Rodriguez MD 11/15/19 1043 0927 1006 Jamel Rodriguez MD /nt
--- NOTE | 2019-11-15 10:43 | HC ---
[facility] [place] [address] CONSULTATION Name: HOA LUNA Room #: 243-P ADM IN M.R.#: [id number] Admission: 11/08/19 Attend Phys: Reza Lindsey MD Discharge: Date of : 44 Report #: [id number] THIS REPORT FOR: //name// CC: Diogo Kinney DATE OF SERVICE: 11/09/2019 We were asked by Dr. Patel to see the patient. HISTORY OF PRESENT ILLNESS: The patient is a 79-year-old admitted on the with chest pain. The patient has a history of coronary artery disease and ventricular tachycardia. She was recommended to have an AICD in the past. The patient also has had a stent in the LAD in the past. Dr. Patel did cardiac catheterization today and showed residual important proximal and mid left anterior descending stenosis along with a high-grade lesion of the first diagonal. Left ventricular function said to be normal by echo. PAST MEDICAL HISTORY: Significant for hypertension, hyperlipidemia, obesity, diabetes mellitus, coronary artery disease, and previous aortic stent graft repair. ALLERGIES: INCLUDE CIPRO, CORN, EES, MOLD, PEANUTS, WEED, ALLOPURINOL, AND COLCHICINE. MEDICATIONS: Include aspirin, omeprazole, Lortab, irbesartan, gabapentin, magnesium, insulin, Lipitor, Toprol, and Plavix. SOCIAL HISTORY: The patient denies tobacco use. FAMILY HISTORY: Positive for heart disease, diabetes, and lung disease. REVIEW OF SYSTEMS: GENERAL: The patient denies fever or chills. EYES: No recent visual change. HEENT: No headache. No nasal discharge found. RESPIRATORY: No new shortness of breath. CARDIAC: As mentioned, chest pain. GASTROINTESTINAL: No nausea or vomiting. The patient did have abdominal pain at the time of admission. GENITOURINARY: No urgency or frequency. MUSCULOSKELETAL: Denies bone or joint problems. SKIN: Denies rash or infection. [facility] [address] [place] [address] CONSULTATION Name: HOA LUNA Room #: [facility].#: [id number] Admission: 11/08/19 Attend Phys: Reza Lindsey MD Discharge: Date of : 44 Report #: [id number] NEUROLOGIC: Denies motor or sensory dysfunction. PSYCHIATRIC: Lives in [place]. Denies depression or anxiety. PHYSICAL EXAMINATION: GENERAL: The patient is lying in bed, reasonably comfortable after cardiac catheterization. The patient looks her stated age, has centripetal obesity and rather pasty complexion. VITAL SIGNS: Blood pressure 111/43, heart rate 56, respiratory rate 20, temperature 97.7, and O2 sat 100% on room air. HEENT: Normocephalic. Pupils are round and equal. No scleral icterus, no arcus. NECK: No mass, no bruit. CHEST: Clear to auscultation. HEART: Rhythm regular. ABDOMEN: Soft. EXTREMITIES: No clubbing, cyanosis, or edema. VASCULAR: No obvious saphenous vein problems. SKIN: No rash or infection. NEUROLOGIC: No motor or sensory dysfunction. MUSCULOSKELETAL: No bone or joint asymmetry or deformity. PSYCHIATRIC: Oriented to person, place, and time. Answers questions appropriately, seems to understand her dilemma. IMPRESSION: The patient has important LAD and marginal stenoses and a left dominant system. I have recommended coronary artery bypass surgery. Risks include but are not limited to bleeding, infection, anesthesia risks, heart, and lung problems, stroke and . Options and alternatives were discussed. The patient understands all of this and wishes to proceed. We note the patient was on Plavix. We will check a P2Y12 test and check other routine preoperative studies, possible surgery later next week. Thank you for the consult. <ELECTRONICALLY SIGNED> By: Jamel Rodriguez MD 11/15/19 1043 1634 2317 Jamel Rodriguez MD /nt
--- NOTE | 2019-11-15 11:05 | NUR ---
CALLED DR. KRUNAL PENN, TIM. PT STATES SHE IS SHORT OF AIR POST WALKING. INSISTS THAT WE PUT HER ON 02 EVEN THOUGH SAT 95% RR 18. BP 169/53. BS SEEM A LITTLE MORE DIMINISHISHED ON R. REPORTED THIS TO TIM PENN. ALSO MAY BE VERY SMALL AIR LEAK ON PLEURAL CT. SMALL BUBBLE ABOUT EVERY 30 SECONDS.
[2019-11-15 14:11] LABS: HEMATOCRIT 25.9 % (37.0-47.0); HEMOGLOBIN 8.3 gm/dL (12.0-15.0); MCH 28.3 pg (26.0-34.0); MCV 88.4 fL (80.0-100.0); RBC 2.93 mil/uL (4.20-5.00); RDW 16.4 % (10.5-14.5); WBC 16.8 thou/uL (4.0-11.0)
--- NOTE | 2019-11-15 19:15 | NUR ---
PT PROGRESSING TOWARDS GOALS, EXCEPT REMAINS WITH DELLIUM AT NIGHT. HALDOL GIVEN WITH FAIR RESULTS. PLEURAL CHEST TUBE OUT. SARGENT DCD. PT IS DUE TO VOID. STARTING ABOUT 1700 PT BECAME CONFUSED. THOUGHT SHE WAS HOME WITH A BUNCH OF LAUNDRY TO DO. PT SON CALLED STATED HE COULD COME UP AND HELP. EMOTIONAL SUPPORT GIVEN.
--- NOTE | 2019-11-15 20:05 | NUR ---
1410 DR. DANIELLE HERE. CHEST XRAY DONE. PT VSS BUT SHE CONTINUES TO STATE SHE CANNOT BREATH. RELAXATION INERVERNTIONS DONE. PT ALLOWED TO HAVE 02 2-4L. RT TX GIVEN WITH GOOD RESULTS. PT STATES SHE FEELS BETTER NOW.
[2019-11-16] VITALS (11 sets, daily range): BP systolic 127–190; BP diastolic 48–76
--- NOTE | 2019-11-16 05:25 | NUR ---
PT CONFUSED, RESTLESS DURING THE NIGHT. ABLE TO ANSWER SOME ORIENTATION QUESTIONS. HALDOL GIVEN X1. DENIED PAIN. FEBRILE DURING THE NIGHT, COOLING MEASURES IMPLEMENTED AND TYLENOL GIVEN. ADEQUATE URINE OUTPUT. PT SLOWL PROGRESSING TOWARS GOALS. WILL CONTINUE TO MONITOR.
--- NOTE | 2019-11-16 09:55 | NUR ---
ASSUMED CARE OF PT AT 0645. DROWSY FROM PRN MEDD, BUT AROUSABLE. CARDIOLOGY AND HOSPITALIST ROUNDED. TX TO 2N AT 0930. PLACED ON PORTABLE MONITOR. BELONGINGS SENT WITH PT. SON CALLED AND NOTIFIED OF CHANGE.
--- NOTE | 2019-11-16 10:17 | NUR ---
PT CARE ASSUMED APPROX 0945. PT ARRIVED TO UNIT VERY DROWSY BUT EASILY AROUSABLE AND APPROPRIATE WITH CONVERSATION. REFUSING BREAKFAST AND MOBILIZATION AT THIS TIME. VSS.
--- NOTE | 2019-11-16 17:04 | NUR ---
PT CARE ASSUMED APPROX 0945. ASSESSMENT CHARTED. DENIES PAIN. REPORTS SOA WITH EXERTION BUT NO HYPOXIA NOTED. VSS. UP WITH WALKER AND MOD ASSIST X1. PT TO CHAIR FOR LUNCH. STERNAL INCISION DSG C/D/I. LEFT LEG HARVEST SITES X3 C/D/I. PT TOLERATING POC. NO DISTRESS NOTED.
[2019-11-17 00:01] VITALS: BP 152/54
[2019-11-17 04:45] VITALS: BP 147/50
--- NOTE | 2019-11-17 05:02 | NUR ---
ASSUMED PT CARE AT 1900. PT IS ALERT AND ORIENTED. NO SIGN OF DISTRESS NOTED. PT IS REQUESTING FOR PAIN MEDICATION. PAIN MED ADMINISTERED PER PT REQUEST. FALL PRECAUTION IN PLACE. ASSESSMENT COMPLETED AND DOCUMENTED. SCHEDULED MEDS ADMINISTERED TO PT. CONITNUE TO MONITOR PATIENT. DENIES ANY FURTHER NEEDS AT THIS TIME.
[2019-11-17 05:51] LABS: HEMATOCRIT 23.5 % (37.0-47.0); HEMOGLOBIN 7.7 gm/dL (12.0-15.0); MCH 29.2 pg (26.0-34.0); MCHC 32.8 g/dL (28.0-37.0); RBC 2.64 mil/uL (4.20-5.00); RDW 16.6 % (10.5-14.5); WBC 10.4 thou/uL (4.0-11.0)
[2019-11-17 05:54] LABS: CALCIUM 9.2 mg/dL (8.5-10.1); CREATININE 0.8 mg/dL (0.6-1.0); POTASSIUM 3.5 mmol/L (3.5-5.1)
[2019-11-17 07:25] VITALS: BP 158/64
--- NOTE | 2019-11-17 11:25 | NUR ---
Follow up: s/p CABG x 3 11/13. Has moved out of ICU. Was eating well prior surgery, but now intake minimal, pt complaints pain and no appetite. No wt changes from usual past year. Pt would like to trial glucerna drinks and add milk due to excessive sweetness complaints. Assisted ordering lunch for today. Nutrition education is not indicated at this time.
[2019-11-17 11:30] VITALS: BP 156/88
--- NOTE | 2019-11-17 14:28 | EKG ---
[address] [address] ELECTROCARDIOGRAM REPORT Name: HOA LUNA Room #: 209-P ADM IN M.R.#: [id number] Admission: 11/08/19 Attend Phys: Reza Lindsey MD Discharge: Date of : 44 Report #: [id number] THIS REPORT FOR: //name// [facility] Test Date: 2019-11-17 Test Time: 07:49:19 Pat Name: HOA LUNA Department: Room: 209 Gender: F Timber Watchman: Alexadner AGUIRRE : 1940 Requested By: Anthony Duncan Order Number: [id number] MD: Efrain Ndiaye Measurements Intervals [place] Rate: 80 P: 51 MS: 165 QRS: 40 QRSD: 86 T: 44 QT: 524 QTc: 605 Interpretive Statements Sinus rhythm Inferior infarct, old Lateral leads are also involved Compared to ECG 11/14/2019 07:54:54 Myocardial infarct finding now present Electronically Signed On 11-17-2019 14:28:08 LYE MACHINE OPERATOR by Efrain Ndiaye [email or web address] <ELECTRONICALLY SIGNED> By: Efrain Ndiaye MD 11/17/19 1428 0749 0749 Efrain Ndiaye MD /EPI
--- NOTE | 2019-11-17 16:00 | NUR ---
Pt uncertain she will be able to go home with [facility] at [place]. She would like to check on rehab options. case discussed with the care team. 5N consult initiated as the pt is familiar with 5N from a short stay after a cva a couple of years ago. she has had hh with [facility] in the past and would use them again if able to go home. she is anxious and requesting o2 per nc even with ra sats of 93%. pt with a congested cough and encouraged to increase her activity. case discussed with cts and rehab FRUIT HARVEST WORKER. plan 5N on Wednesday pending ins auth and bed mobility. pt refused to discuss snf options unless ins denies acute rehab. will follow.
[2019-11-17 17:00] VITALS: BP 162/80
--- NOTE | 2019-11-17 17:01 | NUR ---
PT CARE ASSUMED APPROX 0700. ASSESSMENTS CHARTED. PT DENIES PAIN. REPORTS INTERMITTENT SOA EVEN AT REST. VSS EVEN WHEN PT REPORTS SOA. UP WITH MOD ASSIST AND WALKER. PT RECEIVED FIRST POSTOP SHOWER AND PAYTON DSG REPLACED. PT TOLERATING POC. DENIES QUESTIONS OR CONCERNS REGARDING POC. NO DISTRESS NOTED.
[2019-11-17 19:43] VITALS: BP 111/30
[2019-11-18 00:25] VITALS: BP 143/83
[2019-11-18 05:08] VITALS: BP 143/61; BP 143/71
--- NOTE | 2019-11-18 07:13 | NUR ---
A/O X 3.PAIN WELL CONTROLLED WITH HYROCODONE.O2 1L NC.MONITOR SHOWS SR.DRESSING C/D/I.POC CONTINUED.
[2019-11-18 08:58] VITALS: BP 151/62
[2019-11-18 13:10] VITALS: BP 139/73
[2019-11-18 18:15] VITALS: BP 146/57
--- NOTE | 2019-11-18 18:59 | NUR ---
ASSUMMED PT CARE AT APPROXIMATELY 0700. PT A&O X4. ASSESSMENT CHARTED. FALL PRECAUTIONS IN PLACE. PT DENIES HAVING CHEST PAIN. PT STATED SHE HAS SOB ON EXERSION. PT O2 SAT STABLE. PT STATED SHE HAD GENERALIZED PAIN AND NON-CARDIAC CHEST PAIN. PT RECIEVED ANALGESICS. PT STATED ANALGESICS HELPED RELIEVE PAIN. NOTIFIED OF PT WANTED BREATHING TREATMENTS. PT STATED BREATHING TREATMENTS HELPED. PT AMBULATES STEADY C 1 ASSIST. ENCOURAGED PT TO EAT AND DRINK FLUIDS. PT COMFORTABLE IN BED. VITAL SIGNS STABLE. BLOOD SUGARS STABLE. PT DENIES HAVING FURTHER CONCERNS. EDUCATED PT AND PT'S FAMILY OF POC. PT AND PT'S FAMILY STATED UNDERSTANDING AND DENIES HAVING FURTHER QUESTIONS.
[2019-11-18 19:49] VITALS: BP 153/56
[2019-11-19 04:54] VITALS: BP 182/64
--- NOTE | 2019-11-19 06:52 | NUR ---
ASSUME CARE 1900. PATIENT COMPLAINS OF CONSTANT PAIN. HYDROCODONE FOR RELIEF. UP TO BATHROOM STB ASSIST. TOLERATES ACTIVITY WELL BUT NEEDS ENCOURAGEMENT TO MOVE AND SELF CARE. ASSESSMETN CHARTED. PROGRESSING MODERATELY WITH POC. ILNC FOR COMFORT. PLAN IS DISCHARGE ON WEDNESDAY TO REHAB. WILL CONTINUE TO MONITOR AND FOLLOW WITH POC
[2019-11-19 11:09] VITALS: BP 117/52
[2019-11-19 12:00] VITALS: BP 126/41
--- NOTE | 2019-11-19 13:44 | NUR ---
ASSUMED CARE AT 0700, SHIFT ASSESSMENT DONE, MEDS GIVEN, VSS. PT REPORTED CHEST PAIN THIS AM, DR FORREST NOTIFED. ORDER RECEIVED FOR COUGH MED AND LABS PENDING. REMAINS ON ROOM AIR, UP WITH STAND BY ASSIST. WILL CONTINUE TO ASSESS AND ASSIST WITH ADLs NEEDED.
--- NOTE | 2019-11-19 14:54 | EKG ---
[address] [address] ELECTROCARDIOGRAM REPORT Name: HOA LUNA Room #: 209- ADM IN M.R.#: [id number] Admission: 11/08/19 Attend Phys: Reza Lindsey MD Discharge: Date of : 44 Report #: [id number] THIS REPORT FOR: //name// [facility] Test Date: 2019-11-19 Test Time: 14:14:02 Pat Name: HOA LUNA Department: Room: 209 Gender: F Labor Relations Representative: Alexander AGUIRRE : 1940 Requested By: Alex Roblero Order Number: [id number] MD: Efrain Ndiaye Measurements Intervals [place] Rate: 88 P: 75 TX: 183 QRS: 34 QRSD: 97 T: 88 QT: 317 QTc: 384 Interpretive Statements Sinus rhythm Borderline low voltage, extremity leads Nonspecific T abnormalities, lateral leads Compared to ECG 11/17/2019 07:49:19 T-wave abnormality now present Myocardial infarct finding no longer present Electronically Signed On 11-19-2019 14:54:15 FIBERGLASS BOAT BUILDER by Efrain Ndiaye [email or web address] <ELECTRONICALLY SIGNED> By: Efrain Ndiaye MD 11/19/19 1454 1414 1414 Efrain Ndiaye MD /EPI
[2019-11-19 16:00] VITALS: BP 141/46
--- NOTE | 2019-11-19 17:22 | NUR ---
RN LEFT FOR LUNCH LATE, PT CALLED TO SAY SHE WAS HAVING CP. CAME INTO ROOM, ENCOURAGED HER W/DEEP SLOW EFFECTIVE BREATHING SHE WAS HUNCHED OVER. SHE RELAXED, DID HER BREATHING, THEN STARTED CRACKING JOKES. GAVE HER TYLENOL FOR ACHES POST SURGERY. EATING DINNER AT THIS TIME, ASKED FOR SPRITE. ENCOURAGED HER TO USE CALL LIGHT FOR ANY NEEDS, VS WITHIN HER NORM
--- NOTE | 2019-11-19 17:56 | NUR ---
DR FORREST INFORMED ABOUT THE HIGH TROPONIN 0.17, ORDER RECEIVED FOR A REPEAT TROPONIN FOR 1814. EKG WAS DONE AND WAS NORMAL. DR DANIELLE AND DR CABRERA IS ALRIGHT WITH PATIENT COMING OFF OF TELEMETRY. WILL CONTINUE TO ASSESS AND ASSIST WITH ADLs NEEDED.
[2019-11-19 20:15] VITALS: BP 145/50
--- NOTE | 2019-11-19 23:02 | NUR ---
ASSUMED PT CARE AROUND 1900. PT VSS AND PT WAS ASSISTED TO BATHROOM. PT STABLE ON FEET WITH WALKER AND STBY ASSIST. PT GIVEN NIGHT MEDICATIONS AND RESTING IN BED. PT HAD NO C/O PAIN, N/V/D. PT STATED SHE WAS A BIT WEAK BUT WAS ABLE TO ASSIST WITH MOVEMENTS WHEN PROMPTED AND ENCOURAGED TO DO THINGS. PT IS PROGRESSING TOWARDS TRANSFER TO REHAB PER NOTES. WILL CONTINUE TO MONITOR THRU NIGHT.
[2019-11-19 23:23] VITALS: BP 127/59
[2019-11-20 04:45] VITALS: BP 174/66
[2019-11-20 07:40] VITALS: BP 144/53
[2019-11-20 11:30] VITALS: BP 117/47
--- NOTE | 2019-11-20 11:38 | NUR ---
pt ambulated hallway at 0900, after 1 lap, pulse ox 98% on RA, pt did 4 more laps then went to rest. at 1135, pt ambulated hallway, after a few laps, RT checked pulse ox, was 71% on RA, instructed pt to return to room and rest a while, breathing treatment being given. will monitor and help pt find balance.
--- NOTE | 2019-11-20 14:22 | NUR ---
PATIENT IS A CANDIDATE FOR ACUTE REHAB STAY. INSURANCE AUTHORIZATION REQUESTED THIS DATE. PURIFICATION OPERATOR UPDATED. WILL AWAIT INSURANCE RESPONSE.
--- NOTE | 2019-11-20 16:36 | NUR ---
PT SHOWERED WITH ASSIST FROM GRACIE BERNARD, PER LUIS MANUEL ARREAGA'S ORDER. PT AMBULATED TO SHOWER USING WALKER, SLOW BUT STEADY GAIT, SHOWERED USING A CHAIR AND WASHING UP WITH SOAP AND WATER, PT REQUESTED NOT TO HAVE HAIR WASHED IT WOULD, "STRESS" HER OUT TO HAVE IT DOWN AND AROUND HER FACE. CLEAN DRESSINGS APPLIED TO STERNAL AND UPPER ABDOMINAL WOUNDS.
[2019-11-20 19:40] VITALS: BP 133/60
[2019-11-21 04:45] VITALS: BP 148/60
--- NOTE | 2019-11-21 05:02 | NUR ---
ASSUMED PT CARE AT 1900, PT IS A&0X4, COMPLAINED OF NON CARDIAC CHEST PAIN AND BACK PAIN, MEDICATED PRN WITH PARTIAL RELIEF, SR ON THE MONITOR, ASESSMENTS CHARTED, VS STABLE, WILL CONTINUE TO MONITOR
[2019-11-21 05:38] VITALS: BP 133/60
[2019-11-21 07:13] VITALS: BP 128/44
[2019-11-21] MEDS ORDERED: PACERONE 200 M200 M1 PO (08:45)
[2019-11-21] MEDS ORDERED: BENICAR40 MG PO (08:46)
[2019-11-21] MEDS ORDERED: ADULT LOW DOSE81 MG PO (08:46)
[2019-11-21] MEDS ORDERED: HUMALOG100 UNIT/1 SUBQ (08:56)
[2019-11-21 11:03] VITALS: BP 127/49
--- NOTE | 2019-11-21 13:25 | NUR ---
RECEIVED CALL FROM [facility] REGARDING REQUEST FOR ACUTE REHAB AUTHORIZATION. PATIENT DENIED ACUTE REHAB STAY. IF PHYSICIAN WOULD LIKE TO PERFORM PEER TO PEER - CALL [facility] AND GIVE INFORMATION REGARDING PHYSICAIN THAT WILL BE DOING PEER TO PEER. [facility]'S NUMBER IS [phone]. THIS CALL MUST BE COMPLETED BY 3:00 PM ON . INSURANCE RISK ANALYST INFORMED. THANK YOU FOR THIS REFERRAL.
--- NOTE | 2019-11-21 14:35 | NUR ---
spoke with patient who is agreeable to 5N however declined by insurance for acute rehab. Reviewed post acute care list with patient for [facility]. offered to call son and patient reports she will discuss with son.
[2019-11-21 15:53] VITALS: BP 141/43
--- NOTE | 2019-11-21 16:41 | NUR ---
ASSUMMED PT CARE AT APPROXIMATELY 0700. PT A&O X4. ASSESSMENT CHARTED. FALL PRECAUTIONS IN PLACE. PT DENIES HAVING CHEST PAIN. PT DENIES HAVING SOB. PT STATED SHE HAD NON-CARDIAC CHEST PAIN. PT RECEIVED ANALGESICS. PT STATED ANALGESICS HELPED RELIEVE PAIN. VITAL SIGNS STABLE. BLOOD SUGARS STABLE. PT AMBULATES STEADY. PT EDUCATED ABOUT POC. PT STATED UNDERSTANDING AND DENIED HAVING FURTHER CONCERNS. PT UP TO CHAIR THROUGHOUT SHIFT. PT COMFORTABLE IN CHAIR. PT DENIES HAVING FURTHER CONCERNS.
[2019-11-21 20:11] VITALS: BP 148/62
[2019-11-22 04:45] VITALS: BP 133/52
--- NOTE | 2019-11-22 06:30 | NUR ---
ASSUMED PT CARE AT 1900, PT IS A LERT AND ORIENTEDX4, COMLAINED OF NON CARDIAC CHEST PAIN AND BACK PAIN, MEDICATED PRN WITH PARTIAL RELIEF,ASSESSMENTS CHARTED, MEDICATIONS FOUND IN HER ROOM, MEDICATIONS SEND TO PHARMACY, PT WAS IMPULSIVE AND CALLED FAMILY AND 911 STATING THAT WE ARE KEEPING HER AGAINST HER WILL, ASESSED PTS ORIENTATION AND SHE IS WELL ORIENTED,PT RESTING IN BED AT THIS TIME, WILL CONTINUE TO MONITOR
[2019-11-22 07:20] VITALS: BP 150/69
--- NOTE | 2019-11-22 10:43 | NUR ---
patient reviewed [facility] list last evening and interested in referral to [facility]. referral from tx naval surface fire support planner.
[2019-11-22 11:30] VITALS: BP 137/52
--- NOTE | 2019-11-22 11:44 | NUR ---
FAXED REFERRAL TO [facility] RECEIVED CONFIRMATION AND LEFT MSG WITH KAMILLE IN ADM TO SUBMIT FOR AUTH IF THEY CAN ACCEPT. DP TO FOLLOW.
--- NOTE | 2019-11-22 16:01 | NUR ---
spoke with Angelica at [facility] in admissions she is reviewing referral has not started auth process at this time.
--- NOTE | 2019-11-22 16:32 | NUR ---
ASSUMMED PT CARE AT APPROXIMATELY 0700. PT A&O X4. ASSESSMENT CHARTED. FALL PRECAUTIONS IN PLACE. PT DENIES HAVING CHEST PAIN. PT DENIES HAVING SOB. PT STATED SHE HAD 2/10 NON-CARDIAC CHEST PAIN. PT STATED SHE DID NOT WANT ANALGESICS. VITAL SIGNS STABLE. BLOOD SUGARS STABLE. PT AND PT'S FAMILY EDUCATED ABOUT POC. PT AND PT'S FAMILY STATED UNDERSTANDING AND DENIED HAVING FURTHER QUESTIONS. PT AMBULATES STEADY. PT UP TO CHAIR THROUGHOUT SHIFT. STERNAL DRESSING C/D/I. PT COMFORTABLE IN CHAIR. PT DENIES HAVING FURTHER CONCERNS. ENCOURAGE PT TO USE I.S. ENCOURAGE PT TO EAT AND DRINK FLUIDS.
[2019-11-22 19:14] VITALS: BP 136/43
--- NOTE | 2019-11-23 04:47 | NUR ---
ASSESSMENT: PT REMAIN ALERT AND ORIENT TIMES THREE, FORGETFUL AT TIMES. NO ISSUES NOTED TONIGHT. DID NOT CALL 911, NOR FAMILY ABOUT ANY ISSUES. SLEPT FOR THE MOST OF THE NIGHT. VSS, AFEBRILE. UP TO BR WITH DARK/TARRY STOOL, MINIMAL AMTS. SSR PER MONITOR. POSSIBLE DC TO [facility] FOR REHAB TODAY. WILL CONTINUE TO MONITOR.
[2019-11-23 08:10] VITALS: BP 138/47
--- NOTE | 2019-11-23 11:24 | NUR ---
ASSUMED CARE AT 0700, SHIFT ASSESSMENT DONE, NSR, RA. DENIES PAIN, NAUSEA, VOMITING. UP WITH STANDBY ASSIST. AWAITING EVAL FORM [facility]. WILL CONTINUE TO ASSESS AND ASSIST WITH ADLs NEEDED.
[2019-11-23 12:15] VITALS: BP 137/95
--- NOTE | 2019-11-23 13:55 | NUR ---
ASSUMED CARE OF PT APPROX 1300, REC REPORT FROM DEPARTING, PT CALLED TO SAY SHE THOUGHT SHE HAD BM IN CHAIR, HAD SMALL SMEAR. SBA TO BSC, TYLENOL GIVEN FOR GENERALIZED ALL OVER PAIN; DENIED NEED FOR HYDROCODOE. PT STATED SO SUNDAR HAS ALREADY CAME IN THIS AFTEROON TO TALK ABOUT HER D/C. NO ORDERS CURRENTLY OTHER THAN TO D/C TELE; ENCOURAGED HER TO USE CALL LIGHT FOR ANY NEEDS. HAD BM. SEE SEPARATE INTERVENTIONS FOR ASSESSMENTS.
--- NOTE | 2019-11-23 14:01 | NUR ---
FAXED REFERRAL TO [facility] ON 11/22 SPOKE WITH QUANG IN ADM SHE RECEIVED REFERRAL AND CAN ACCEPT.
--- NOTE | 2019-11-23 14:27 | NUR ---
JUST REC REPORT FROM CHARGE THAT PT IS TO MOVE TO 404. LET PT KNOW, MONITORING ANOTHER POST CATH PT AND WILL HELP GET THIS PT READY TO TRANSFER.
[2019-11-23 15:20] VITALS: BP 133/66
--- NOTE | 2019-11-23 15:33 | NUR ---
ASSUMED CARE OF PATIENT AT 1500. PT IS AOX4, VSS, NO C/O PAIN AT THIS TIME. PT TRANSFERRED BY WHEELCHAIR AND WAS ABLE TO PIVOT TO BED. FALL PRECAUTIONS IN PLACE, CALL LIGHT/BELONGINGS IN REACH. WILL CONTINUE TO MONITOR PT.
--- NOTE | 2019-11-23 15:47 | NUR ---
[facility] onsite eval and accepting of patient. they plan to seek auth. Sp with Jacki Donato Liason who reports they need patients medicare number which is not longer her SS number on card. patient presented her medicare cards but had SS on card. Faxed to [facility] and questioned if [facility] auth why need her medicare card number for a replacement policy, Jacki reports she will inquire and get back to casemgr.
--- NOTE | 2019-11-23 18:22 | NUR ---
PT TRANSFERRED TO [facility] PER WHEELCHAIR VAN. PT AOX4, VSS, NO PAIN AT THIS TIME. COPIED CHART AND PRESCRIPTIONS SENT WITH PATIENT.
[2019-11-24 10:22] LABS: sO2 94.4 % (92.0-98.0)
[2019-11-24 10:24] LABS: sO2 98.4 % (92.0-98.0)
== END 2019-11-23 18:29 | DRG 231 ==
LOC: ER 19:12 → 2N 21:39 → EROBS 21:39 → ICU 21:39 → 2N 22:48 → ICU 11-09 12:59 → 2N 11-16 09:46 → ENTRNSPT 11-23 14:45 → EDTRNSPTSTS 11-23 14:48 → 4N 11-23 15:02
PROVIDERS: Emergency Medicine; Hospitalist; Internal Medicine; Nurse Practitioner Acute Care; Nurse Practitioner Adult Health; Physician Assistant; Surgery Vascular Surgery; ADMIT Internal Medicine Cardiovascular Disease
PROC: B41FYZZ Fluoroscopy of Right Lower Extremity Arteries using Other Contrast (ICD-10-PCS; principal; 2019-11-09)
PROC: 4A023N7 Measurement of Cardiac Sampling and Pressure, Left Heart, Percutaneous Approach (ICD-10-PCS; principal; 2019-11-09)
PROC: B211YZZ Fluoroscopy of Multiple Coronary Arteries using Other Contrast (ICD-10-PCS; principal; 2019-11-09)
PROC: 027034Z Dilation of Coronary Artery, One Artery with Drug-eluting Intraluminal Device, Percutaneous Approach (ICD-10-PCS; principal; 2019-11-09)
PROC: 30233N1 Transfusion of Nonautologous Red Blood Cells into Peripheral Vein, Percutaneous Approach (ICD-10-PCS; 2019-11-13)
PROC: 06BQ4ZZ Excision of Left Saphenous Vein, Percutaneous Endoscopic Approach (ICD-10-PCS; 2019-11-13)
PROC: 5A1221Z Performance of Cardiac Output, Continuous (ICD-10-PCS; 2019-11-13)
PROC: 02100Z9 Bypass Coronary Artery, One Artery from Left Internal Mammary, Open Approach (ICD-10-PCS; 2019-11-13)
PROC: 30233K1 Transfusion of Nonautologous Frozen Plasma into Peripheral Vein, Percutaneous Approach (ICD-10-PCS; 2019-11-13)
PROC: 021109W Bypass Coronary Artery, Two Arteries from Aorta with Autologous Venous Tissue, Open Approach (ICD-10-PCS; 2019-11-13)
DX: I25.10 Atherosclerotic heart disease of native coronary artery without angina pectoris (principal); N17.0 Acute kidney failure with tubular necrosis; I47.2 Ventricular tachycardia; D62 Acute posthemorrhagic anemia; I69.354 Hemiplegia and hemiparesis following cerebral infarction affecting left non-dominant side; E78.5 Hyperlipidemia, unspecified; E66.9 Obesity, unspecified; J45.909 Unspecified asthma, uncomplicated; E11.51 Type 2 diabetes mellitus with diabetic peripheral angiopathy without gangrene; G89.29 Other chronic pain; M54.5 Low back pain; I25.5 Ischemic cardiomyopathy; M10.9 Gout, unspecified; E83.42 Hypomagnesemia; E11.22 Type 2 diabetes mellitus with diabetic chronic kidney disease; Z60.2 Problems related to living alone; I65.29 Occlusion and stenosis of unspecified carotid artery; N18.3 Chronic kidney disease, stage 3 (moderate); R41.0 Disorientation, unspecified; K59.00 Constipation, unspecified; I35.0 Nonrheumatic aortic (valve) stenosis; I35.1 Nonrheumatic aortic (valve) insufficiency; I42.9 Cardiomyopathy, unspecified; I12.9 Hypertensive chronic kidney disease with stage 1 through stage 4 chronic kidney disease, or unspecified chronic kidney disease; Z79.82 Long term (current) use of aspirin; Z79.899 Other long term (current) drug therapy; Z90.710 Acquired absence of both cervix and uterus; Z68.30 Body mass index [BMI] 30.0-30.9, adult; I25.2 Old myocardial infarction; Z95.5 Presence of coronary angioplasty implant and graft; Z88.8 Allergy status to other drugs, medicaments and biological substances; Z88.1 Allergy status to other antibiotic agents; Z91.010 Allergy to peanuts; Z91.14 Patient's other noncompliance with medication regimen; Z82.49 Family history of ischemic heart disease and other diseases of the circulatory system; Z80.8 Family history of malignant neoplasm of other organs or systems; Z85.41 Personal history of malignant neoplasm of cervix uteri; Z83.3 Family history of diabetes mellitus
CPT/HCPCS: 10078; 10081; 10203; 47000; 47001; 47002; 47297; 48888; 50010; 50249; 50409; 50456; 50498; 50668; 51301; 52131; 52259; 52314; 53327; 53358; 54118; 55415; 56455; 56524; 56525; 56526; 56527; 56528; 56531; 56534; 56668; 56760; 56898; 57093; 57116; 57167; 62110; 62950; 65003; 65020; 65047; 65090; 65120; 65135

== ENCOUNTER 2020-05-30 20:14 | Emergency (ER) | payer OTHER ==
[~2020-05-30] VITALS: Ht 165.1 cm; Wt 81.7 kg
[~2020-05-30 20:14] MED LIST changes: +ADULT LOW DOSE81 MG PO; +BENICAR40 MG PO; +HUMALOG100 UNIT/1 SUBQ; +HYDROCODON-ACE1 EAC7 PO; +NEURONTIN 300M300 M2 PO
[2020-05-30] MEDS ORDERED: AVAPRO300 MG PO (21:03)
[2020-05-30] MEDS ORDERED: FLEXERIL PO (21:45)
[2020-05-30] MEDS ORDERED: LIDODERM1 EACH TOP (21:45)
[2020-05-30 21:56] VITALS: BP 173/69
== END 2020-05-30 21:50 | disposition home or self-care (01) ==
LOC: ER 20:14
DX: S32.029A Unspecified fracture of second lumbar vertebra, initial encounter for closed fracture (principal); E11.51 Type 2 diabetes mellitus with diabetic peripheral angiopathy without gangrene; E11.42 Type 2 diabetes mellitus with diabetic polyneuropathy; E11.22 Type 2 diabetes mellitus with diabetic chronic kidney disease; I13.0 Hypertensive heart and chronic kidney disease with heart failure and stage 1 through stage 4 chronic kidney disease, or unspecified chronic kidney disease; N18.3 Chronic kidney disease, stage 3 (moderate); I50.30 Unspecified diastolic (congestive) heart failure; I25.10 Atherosclerotic heart disease of native coronary artery without angina pectoris; E78.5 Hyperlipidemia, unspecified; J45.909 Unspecified asthma, uncomplicated; M19.90 Unspecified osteoarthritis, unspecified site; I25.2 Old myocardial infarction; E66.9 Obesity, unspecified; Z86.73 Personal history of transient ischemic attack (TIA), and cerebral infarction without residual deficits; Z79.82 Long term (current) use of aspirin; Z79.899 Other long term (current) drug therapy; Z79.4 Long term (current) use of insulin; Z88.1 Allergy status to other antibiotic agents; Z91.018 Allergy to other foods; Z91.010 Allergy to peanuts; Z91.048 Other nonmedicinal substance allergy status; Z88.8 Allergy status to other drugs, medicaments and biological substances; Z68.30 Body mass index [BMI] 30.0-30.9, adult; W17.89XA Other fall from one level to another, initial encounter; Y93.89 Activity, other specified; Y92.89 Other specified places as the place of occurrence of the external cause; Y99.8 Other external cause status

== ENCOUNTER 2020-06-05 07:56 | Emergency (ER) | payer OTHER ==
[~2020-06-05] VITALS: Ht 165.1 cm; Wt 81.7 kg
[~2020-06-05 07:56] MED LIST changes: +AVAPRO300 MG PO; +LIDODERM1 EACH TOP
[2020-06-05 11:14] LABS: ABSOLUTE NEUTROPHILS 5.3 thou/uL (1.4-8.2); BASOPHILS 0.3 % (0.0-2.0); EOSINOPHILS 6.9 % (0.0-3.0); HEMATOCRIT 38.4 % (37.0-47.0); HEMOGLOBIN 12.8 gm/dL (12.0-15.0); LYMPHOCYTES 31.5 % (24.0-44.0); MCH 31.8 pg (26.0-34.0); MCHC 33.2 g/dL (28.0-37.0); MCV 95.7 fL (80.0-100.0); MONOCYTES 6.5 % (1.0-8.0); PLATELET COUNT 254 thou/uL (150-400); POLYS 54.8 % (36.0-66.0); RBC 4.01 mil/uL (4.20-5.00); RDW 14.3 % (10.5-14.5); WBC 9.7 thou/uL (4.0-11.0)
[2020-06-05 11:26] LABS: ANION GAP 6 mmol/L (7-16); BUN 23 mg/dL (7-18); CALCIUM 8.9 mg/dL (8.5-10.1); CHLORIDE 104 mmol/L (98-107); CO2 30 mmol/L (21-32); GLUCOSE 52 mg/dL (74-106); POTASSIUM 4.3 mmol/L (3.5-5.1); SODIUM 140 mmol/L (136-145)
[2020-06-05 11:36] LABS: ALBUMIN 3.6 g/dL (3.4-5.0); DIRECT BILIRUBIN < 0.1 mg/dL (<0.1-0.2); SGOT 15 U/L (15-37); SGPT 19 U/L (30-65); TOTAL BILIRUBIN 0.3 mg/dL (0.2-1.0)
[2020-06-05 12:47] LABS: URINE BILIRUBIN NEGATIVE (Negative); URINE BLOOD NEGATIVE (Negative); URINE CLARITY CLEAR; URINE COLOR YELLOW; URINE GLUCOSE-RANDOM* NEGATIVE (Negative); URINE KETONES NEGATIVE (Negative); URINE LEUKOCYTES-REFLEX NEGATIVE (Negative); URINE NITRITE-REFLEX NEGATIVE (Negative); URINE PROTEIN (DIPSTICK) NEGATIVE (Negative); URINE SPECIFIC GRAVITY 1.015 (1.005-1.035); URINE UROBILINOGEN 0.2 E.U./dl (0.2-1.0)
[2020-06-05] MEDS ORDERED: LEXAPRO 10 MG T10 M2 PO (13:31)
[2020-06-05] MEDS ORDERED: LIPITOR40 MG PO (13:31)
[2020-06-05] MEDS ORDERED: HYDROCODON-ACE1 EAC8 PO (13:32)
[2020-06-05] MEDS ORDERED: OMEPRAZOLE 20 M20 M1 PO (13:32)
[2020-06-05] MEDS ORDERED: PERCOCET 5-3251 EACH PO (15:11)
[2020-06-05 16:15] VITALS: BP 186/71
== END 2020-06-05 16:10 | disposition home or self-care (01) ==
LOC: ER 07:56
PROVIDERS: Emergency Medicine
DX: S32.028D Other fracture of second lumbar vertebra, subsequent encounter for fracture with routine healing (principal); I12.9 Hypertensive chronic kidney disease with stage 1 through stage 4 chronic kidney disease, or unspecified chronic kidney disease; N18.3 Chronic kidney disease, stage 3 (moderate); I25.2 Old myocardial infarction; I25.10 Atherosclerotic heart disease of native coronary artery without angina pectoris; E78.5 Hyperlipidemia, unspecified; J45.909 Unspecified asthma, uncomplicated; M10.9 Gout, unspecified; E11.22 Type 2 diabetes mellitus with diabetic chronic kidney disease; Z79.82 Long term (current) use of aspirin; Z79.4 Long term (current) use of insulin; Z79.899 Other long term (current) drug therapy; Z88.1 Allergy status to other antibiotic agents; Z91.018 Allergy to other foods; Z91.010 Allergy to peanuts; Z88.8 Allergy status to other drugs, medicaments and biological substances; X50.1XXD Overexertion from prolonged static or awkward postures, subsequent encounter

== ENCOUNTER → 2020-06-19 | Outpatient (CLI) | payer OTHER ==
[~2020-06-19] MED LIST changes: +COZAAR100 MG PO; +CYCLOBENZAPRINE10 MG PO; +FENOFIBRATE160 MG PO; +HYDROCODON-ACE1 EAC8 PO; +LEXAPRO 10 MG T10 M2 PO; +NAPROXEN500 MG PO; +PEPCID20 MG PO; +PERCOCET 5-3251 EACH PO; +SEROQUEL 50 MG50 MG PO; +TRADJENTA5 MG PO; +VITAMIN B-121000 MC2 PO
== END ==
LOC: MRI 14:47
PROVIDERS: ATTEND Nuclear Medicine Nuclear Cardiology
DX: S32.050A Wedge compression fracture of fifth lumbar vertebra, initial encounter for closed fracture (principal); M51.24 Other intervertebral disc displacement, thoracic region; M51.27 Other intervertebral disc displacement, lumbosacral region; M48.07 Spinal stenosis, lumbosacral region; M47.815 Spondylosis without myelopathy or radiculopathy, thoracolumbar region; X58.XXXA Exposure to other specified factors, initial encounter; Y93.89 Activity, other specified; Y92.89 Other specified places as the place of occurrence of the external cause; Y99.8 Other external cause status

== ENCOUNTER → 2020-06-21 | Outpatient (CLI) | payer OTHER ==
[~2020-06-21] VITALS: Ht 162.6 cm; Wt 77.6 kg
[~2020-06-21] MED LIST changes: -COZAAR100 MG PO; -CYCLOBENZAPRINE10 MG PO; -FENOFIBRATE160 MG PO; -PEPCID20 MG PO; -SEROQUEL 50 MG50 MG PO; -TRADJENTA5 MG PO; -VITAMIN B-121000 MC2 PO
[2020-06-21 11:33] VITALS: BP 122/50
[2020-06-21 11:37] LABS: HEMATOCRIT 34.8 % (37.0-47.0); HEMOGLOBIN 11.8 gm/dL (12.0-15.0); MCH 32.5 pg (26.0-34.0); MCHC 34.1 g/dL (28.0-37.0); MCV 95.4 fL (80.0-100.0); RBC 3.64 mil/uL (4.20-5.00); WBC 6.8 thou/uL (4.0-11.0)
[2020-06-21 11:46] LABS: CREATININE 1.2 mg/dL (0.6-1.0); POTASSIUM 4.6 mmol/L (3.5-5.1)
--- NOTE | 2020-06-21 13:35 | NUR ---
PT BEGINNING TO WAKE UP. TAKING SIPS OF WATER. SON AT BEDSIDE.
== END | disposition home or self-care (01) ==
LOC: CATH
PROVIDERS: ATTEND Nuclear Medicine Nuclear Cardiology
DX: M80.08XA Age-related osteoporosis with current pathological fracture, vertebra(e), initial encounter for fracture (principal); M54.9 Dorsalgia, unspecified; G89.29 Other chronic pain; I13.0 Hypertensive heart and chronic kidney disease with heart failure and stage 1 through stage 4 chronic kidney disease, or unspecified chronic kidney disease; E11.22 Type 2 diabetes mellitus with diabetic chronic kidney disease; N18.3 Chronic kidney disease, stage 3 (moderate); I50.30 Unspecified diastolic (congestive) heart failure; I25.2 Old myocardial infarction; E78.5 Hyperlipidemia, unspecified; M10.9 Gout, unspecified; I42.9 Cardiomyopathy, unspecified; M19.90 Unspecified osteoarthritis, unspecified site; J45.909 Unspecified asthma, uncomplicated; I73.9 Peripheral vascular disease, unspecified; E66.09 Other obesity due to excess calories; Z98.890 Other specified postprocedural states; Z79.899 Other long term (current) drug therapy; Z86.73 Personal history of transient ischemic attack (TIA), and cerebral infarction without residual deficits; Z88.8 Allergy status to other drugs, medicaments and biological substances

== ENCOUNTER 2020-07-08 16:20 | Emergency (ER) | payer OTHER ==
[~2020-07-08] VITALS: Ht 165.1 cm; Wt 81.7 kg
[2020-07-08 16:21] VITALS: BP 129/55
== END 2020-07-08 17:08 | disposition home or self-care (01) ==
LOC: ER 16:20
DX: R23.8 Other skin changes (principal); Z71.1 Person with feared health complaint in whom no diagnosis is made; E11.22 Type 2 diabetes mellitus with diabetic chronic kidney disease; I13.0 Hypertensive heart and chronic kidney disease with heart failure and stage 1 through stage 4 chronic kidney disease, or unspecified chronic kidney disease; N18.3 Chronic kidney disease, stage 3 (moderate); I50.30 Unspecified diastolic (congestive) heart failure; I25.10 Atherosclerotic heart disease of native coronary artery without angina pectoris; E78.5 Hyperlipidemia, unspecified; J45.909 Unspecified asthma, uncomplicated; E66.9 Obesity, unspecified; M19.90 Unspecified osteoarthritis, unspecified site; I25.2 Old myocardial infarction; E11.51 Type 2 diabetes mellitus with diabetic peripheral angiopathy without gangrene; E11.40 Type 2 diabetes mellitus with diabetic neuropathy, unspecified; Z68.30 Body mass index [BMI] 30.0-30.9, adult; Z86.73 Personal history of transient ischemic attack (TIA), and cerebral infarction without residual deficits; Z95.818 Presence of other cardiac implants and grafts; Z79.82 Long term (current) use of aspirin; Z79.899 Other long term (current) drug therapy; Z79.4 Long term (current) use of insulin; Z88.1 Allergy status to other antibiotic agents; Z91.018 Allergy to other foods; Z88.8 Allergy status to other drugs, medicaments and biological substances; Z91.048 Other nonmedicinal substance allergy status

== ENCOUNTER 2020-07-16 04:28 | Inpatient (IN) | payer OTHER ==
[~2020-07-16] VITALS: Ht 165.1 cm; Wt 77.1 kg
[2020-07-16] VITALS (12 sets, daily range): BP systolic 127–223; BP diastolic 55–117
[2020-07-16 04:53] LABS: ABSOLUTE NEUTROPHILS 7.9 thou/uL (1.4-8.2); BASOPHILS 0.4 % (0.0-2.0); EOSINOPHILS 1.2 % (0.0-3.0); HEMATOCRIT 34.7 % (37.0-47.0); HEMOGLOBIN 11.7 gm/dL (12.0-15.0); MCH 31.8 pg (26.0-34.0); MCHC 33.7 g/dL (28.0-37.0); MCV 94.3 fL (80.0-100.0); MONOCYTES 10.1 % (1.0-8.0); PLATELET COUNT 268 thou/uL (150-400); POLYS 77.3 % (36.0-66.0); RBC 3.68 mil/uL (4.20-5.00); RDW 13.8 % (10.5-14.5); WBC 10.2 thou/uL (4.0-11.0)
[2020-07-16 04:55] LABS: CALCIUM 8.3 mg/dL (8.5-10.1)
[2020-07-16 05:03] LABS: ALBUMIN 3.3 g/dL (3.4-5.0); TOTAL BILIRUBIN 0.3 mg/dL (0.2-1.0); TOTAL PROTEIN 7.4 g/dL (6.4-8.2)
[2020-07-16 05:08] LABS: URINE BILIRUBIN NEGATIVE (Negative); URINE BLOOD NEGATIVE (Negative); URINE CLARITY CLEAR; URINE COLOR YELLOW; URINE GLUCOSE-RANDOM* NEGATIVE (Negative); URINE KETONES NEGATIVE (Negative); URINE LEUKOCYTES-REFLEX NEGATIVE (Negative); URINE NITRITE-REFLEX NEGATIVE (Negative); URINE PROTEIN (DIPSTICK) NEGATIVE (Negative); URINE UROBILINOGEN 0.2 E.U./dl (0.2-1.0)
--- NOTE | 2020-07-16 05:49 | NUR ---
PATIENTS FAMILY REPORTS THAT SHE HAS BEEN ADVISED NOT TO HAVE MRI'S PERFORMED BY PCP, R/T PMHX.
--- NOTE | 2020-07-16 08:35 | EKG ---
[facility] [place] [address] ELECTROCARDIOGRAM REPORT Name: HOA LUNA Room #: 202- ADM IN M.R.#: [id number] Admission: 07/16/20 Attend Phys: Reza Lindsey MD Discharge: Date of : 44 Report #: [id number] THIS REPORT FOR: cc: Zoran Kinney MD, Steven A. MD Lundgren,Cameron Li MD [facility] ~ THIS REPORT FOR: //name// [facility] ED Test Date: 2020-07-16 Test Time: 04:42:11 Pat Name: HOA LUNA Department: Room: 202 Gender: F Data Deliverables Manager: : 1940 Requested By: Oniel Leblanc Order Number: [id number] MD: Cameron Lizarraga Measurements Intervals [place] Rate: 68 P: 77 ME: 199 QRS: 14 QRSD: 115 T: 85 QT: 431 QTc: 459 Interpretive Statements Sinus rhythm Ventricular premature complex Nonspecific ST and T wave abnormality Compared to ECG 11/19/2019 14:14:02 Ventricular premature complex(es) now present Electronically Signed On 07-16-2020 8:35:36 CDT by Cameron Lizarraga [email or web address] <ELECTRONICALLY SIGNED> By: Cameron Lizarraga MD, [facility] 07/16/20 0835 1 1 Cameron Lizarraga MD, FAC /EPI
[2020-07-16 09:41] LABS: TSH 1.495 uIU/mL (0.358-3.740)
[2020-07-16] MEDS ORDERED: CYCLOBENZAPRINE10 MG PO (16:13)
[2020-07-16] MEDS ORDERED: LIPITOR40 MG PO (16:13)
[2020-07-16] MEDS ORDERED: VITAMIN B-121000 MC2 PO (16:14)
--- NOTE | 2020-07-16 16:47 | NUR ---
PT ADMITTED RELATED TO HYPOGLYCEMIA; AMS. CM REVIEWED CHART AND SPOKE WITH CARE TEAM. CM CALLED AND SPOKE WITH PT OVER THE PHONE THIS AFTERNOON. CM ROLE INTROPDUCED. PT APPERED TO BE A&O X4. PT INDICATED SHE HAD BEEN STAYING IN A HOUSE WITH HER SON AND HIS GF. SHE INDICATED NO STEPS TO ENTER AND NONE INSIDE. PT INDICATED SHE HAD USED A SPC STAMP COLLECTOR. PT INDICATED SHE HAD GONE TO [facility] IN NOVEMBER AND HAD HH UPON HER DC HOME. PT HAD BEEN EVICTED FROM HER CONDO WITH HER NEPHEW IN [place]. PT INDICATED SHE ANTICIPATES RETURNIGN TO HER SON'S HOUSE ONCE MEDICALLY STABLE. PT IS RECEPTIVE TO HH OR POST ACUTE CARE STAY. CM TO FOLLOW INDICATED WITH DC PLANNING.
--- NOTE | 2020-07-16 17:27 | NUR ---
RECEIVED PT'S CARE AROUND 30; PT. ON BED ALERT TO PLACE, DATE & NAME; RESTLESS; FORGETFUL; SHOUTTING "HELP ME HELP SHE IS TRYING TO KILL ME"; EDUCATED ABOUT NURSE IS TRYING TO HELP HER; SHOUT BACK "NOT YOU WANT HER ME"; PHYSICIAN PAGED; ORDERS RECEIVED; SR ON THE MONITOR; BS ON THE 60s; CHECK CHART; NO DIET ORDER; SWALLOWING STUDY AT THE BED SIDE; ABLE TO DRINK ORANGE JUICE WITHOUT COUGHING; AGREED TO DRINK HALF OF JUICE; 60 ML; REFUSED 1/2 OF D50 IV; EDUCATED ABOUT THE IMPORTANCE OF MEDICATION; ST. "I DO NOT CARE STOP"; FRANKO INGOT PASSER NOTIFIED DURING ROUNDING; NO NEW ORDERS; BS RE-ASSESSMENT 140s; PER NURSE PRACTITIONER OK TO DO BS ACHS; SBP ON THE 190s; IV PRN MEDICATION GIVEN; PRN IV FOR RESTLESS GIVEN; RE-ASSESSMENT PT. CALMER SITTING AT THE BED; EDUCATED ABOUT FALL PREVENTIONS; ST. UNDERSTANDING; BP ON THE 170s; SCHEDULE MEDICATION GIVEN; PHYSICIAN NOTIFIED; DURING THE EARLY AFTERNOON PT. CALM; COOPERATIVE; AOX4; FORGETFUL; CALLED APPROPIATELY; REQUESTED SON DESIGNATED VISITOR; CALLED SON; PER SON PT'S BS DROPPED DUE TO PT. TOOK WRONG INSULIN; HOSPITALIST & DR. MORALES NOTIFIED; NO NEW ORDERS; DURING DINNER BS ON THE 117s; DR. MORALES NOTIFIED ABOUT PT. NOT RECEIVING INSULING DURING LUNCH & BS DROPPING; ORDRES RECEIVED; HS CORNETIST INSULIN HOLD; MONITORING; RE-ASSESSMENT BP ON THE 140s; MONITORING; ASSESSMENT CHARGED; FOLLOWING POC; WILL PASS ON REPORT;
[2020-07-17 00:22] VITALS: BP 120/53
[2020-07-17 04:16] LABS: ABSOLUTE NEUTROPHILS 4.3 thou/uL (1.4-8.2); BASOPHILS 0.6 % (0.0-2.0); HEMATOCRIT 33.9 % (37.0-47.0); HEMOGLOBIN 11.4 gm/dL (12.0-15.0); LYMPHOCYTES 28.5 % (24.0-44.0); MCH 31.9 pg (26.0-34.0); MCHC 33.6 g/dL (28.0-37.0); MONOCYTES 9.6 % (1.0-8.0); PLATELET COUNT 270 thou/uL (150-400); POLYS 58.3 % (36.0-66.0); RBC 3.57 mil/uL (4.20-5.00); RDW 13.9 % (10.5-14.5); WBC 7.4 thou/uL (4.0-11.0)
[2020-07-17 04:19] LABS: CALCIUM 8.8 mg/dL (8.5-10.1); CREATININE 1.2 mg/dL (0.6-1.0); MAGNESIUM 1.5 mg/dL (1.8-2.4)
--- NOTE | 2020-07-17 04:24 | NUR ---
PATIENT IS PROGRESSING IN HER CARE PLAN. VITAL SIGNS STABLE WITH PATIENT HAVING NO COMPLAINTS OF NAUSEA. PATIENT DID COMPLAIN OF PAIN IN BACK AND SHOULDER WHICH WERE TREATED APPROPRIATELY THROUGH MEDICATIONS AND NON PHARMACOLOGICAL INTERVENTION. MOSTLY ORIENTED, PATIENT CALLED APPROPRIATELY FOR REQUESTS AND WAS ABLE TO PARTICIPATE IN CARE. UP MULTIPLE TIMES WITH ASSISTANCE INCIDENT FREE, PATIENT IS CONSIDERED A HIGH FALL RISK. PATIENT IS ANXIOUS FOR POTENTIAL DISCHARGE SOON. CONTINUE PLAN OF CARE.
[2020-07-17 04:45] VITALS: BP 141/67
[2020-07-17 05:32] LABS: POTASSIUM 4.2 mmol/L (3.5-5.1)
[2020-07-17 07:43] VITALS: BP 129/48
--- NOTE | 2020-07-17 09:51 | HC ---
[facility] [place] [address] CONSULTATION Name: HOA LUNA Room #: 202-P ADM IN M.R.#: [id number] Admission: 07/16/20 Attend Phys: Reza Lindsey MD Discharge: Date of : 44 Report #: [id number] THIS REPORT FOR: cc: Zoran Kinney MD, Steven A. MD Al-Mubaslat, Ahmad MD ~ CC: Reza Kinney DATE OF SERVICE: 07/16/2020 CONSULTING PHYSICIAN: Dr. Lindsey. REASON FOR CONSULTATION: Hypoglycemia, type 2 diabetes mellitus. HISTORY OF PRESENT ILLNESS: This is a 80-year-old female patient whose medical background is significant for type 2 diabetes mellitus, CAD, CVA, and hypertension. The patient presented to the ER following an episode of confusion in the setting of severe hypoglycemia that was recorded at 38 mg/dL. The patient was subsequently admitted for further care and monitoring. It appears that in the context of that episode that the patient has fallen and potentially hit her right shoulder, which is currently quite sore. The patient has type 2 diabetes history dates back to 15 years ago. Her most current regimen consists of Lantus insulin that occasionally alternates with Basaglar insulin at 60 units q.p.m. She notes that her blood glucose values fluctuate somewhat with occasional occurrences of which she labeled as high blood glucose values and occasionally low blood glucose values, but never with severe hypoglycemia. She has overall been under good control with this regimen. Interestingly, she says that she had run out of her conventional insulin therapy and she had used an alternative insulin that her granddaughter left at her house and she described the pen as being dark blue and orange. She took 60 units of that insulin last night prior to her presentation. As noted above, the patient is also hypertensive and is maintained on treatment with metoprolol 100 mg daily and irbesartan 300 mg daily. The patient has ongoing difficulties with peripheral diabetic neuropathy and is maintained on gabapentin 300 mg b.i.d. She is known to have diabetic retinopathy and glaucoma. She is not aware of difficulties pertaining to chronic kidney disease. The patient has an extensive history of coronary artery disease and status post 2 MIs as well as stent placement in addition to a somewhat recent CABG surgery of 3 vessels in November 2019. She had a CVA in 2015 with residual left-sided weakness. [address] [address] CONSULTATION Name: HOA LUNA Room #: 202-P [facility] IN ..#: [id number] Admission: 07/16/20 Attend Phys: Reza Lindsey MD Discharge: Date of : 42 Report #: [id number] REVIEW OF SYSTEMS: CONSTITUTIONAL: Fatigue, tiredness, but not body weight changes, fever or chills. HEENT: Negative for sore throat, sinus pain or ear drainage. PULMONARY: Negative for shortness of breath, cough or hemoptysis. CARDIAC: Negative for chest pain, palpitations, syncope or presyncope but noted for occasional dyspnea on exertion. GASTROINTESTINAL: Negative for abdominal pain, nausea, vomiting. She has baseline issues with GERD. MUSCULOSKELETAL: Severe right shoulder pain, possibly traumatized during her fall prior to admission. NEUROLOGY: Baseline difficulties with peripheral diabetic neuropathy, but not seizure activity or frequent severe headaches. She did lose consciousness prior to her presentation to the hospital yesterday. Otherwise, review of systems was noncontributory other than those mentioned in HPI. PAST MEDICAL HISTORY: 1. Type 2 diabetes mellitus. 2. Hypertension. 3. Hyperlipidemia. 4. CAD, status post 2 MO, status post stent placement, status post CABG 3 vessels in November 2019. 5. CVA 2015. Left-sided residual weakness. 6. Asthma. 7. Peripheral vascular disease. 8. Osteoarthritis. 9. AAA status post stent graft repair in 2012. 10. Gout. 11. Ischemic cardiomyopathy. 12. Right iliac arterial aneurysm. 13. Left renal arterial stenosis, status post stent placement. OUTPATIENT MEDICATIONS: Magnesium oxide 400 mg daily, naproxen 500 mg daily, gabapentin 300 mg b.i.d., Lantus insulin 60 units at bedtime, metoprolol XL 100 mg daily, irbesartan 300 mg daily, hydrocodone q. 6 hours p.r.n. pain, omeprazole 20 mg daily. ALLERGIES: CIPROFLOXACIN, ERYTHROMYCIN, ALLOPURINOL, COLCHICINE as well as allergies to WHEAT, PEANUTS, MOLDS and CORN. FAMILY HISTORY: Noncontributory. SOCIAL HISTORY: The patient has never been a smoker. Denies use of alcohol or illicit drugs. PHYSICAL EXAMINATION: [facility] [address] [place] [address] CONSULTATION Name: HOA LUNA Room #: 202-P [facility] IN M.R.#: [id number] Admission: 07/16/20 Attend Phys: Reza Lindsey MD Discharge: Date of : 42 Report #: [id number] GENERAL: female patient who appears to be in pain, holding her right shoulder pretty much throughout my interview, but not in distress. VITAL SIGNS: Blood pressure is 197/100 mmHg. Pulse rate 91 beats per minute, respiration 18 per minute, temperature is 36.4 degrees Celsius. CONSTITUTIONAL: The patient is lying in bed, appears to be in pain with a preference to hold her right shoulder, no distress. HEENT: Anicteric sclerae. Intact extraocular motions. NECK: Supple, no thyromegaly. CHEST: Noted for moderate air entry bilaterally with scattered rales. HEART: Regular rate and rhythm with a base systolic murmur. ABDOMEN: Soft, lax. No guarding. Active bowel sounds. EXTREMITIES: Lower extremity exam negative for ankle edema, skin breaks. NEUROLOGIC: Awake, alert and oriented to time, place and person. The remainder of her examination is noted for upper extremity weakness. I could not assess fully because of her intense right shoulder pain. PSYCHIATRIC: Normal mood and affect, appropriate. Normal thought process. LABORATORY RESULTS: Blood glucose ranged from 66-178 mg/dL. Sodium 136, potassium 3.0, chloride 100, CO2 of 24, anion gap 12, BUN 14, creatinine 1.0, AST 19, lipase 186, calcium 8.3, magnesium 1.4, alkaline phosphatase 78, ALT 15, total protein 7.4, albumin 3.3, EGFR 54. Troponin 0.17 in November 2019. BNP 540 in 2019. INR 1.2. White blood count 10.2, hemoglobin 11.7, hematocrit 30.5, platelets 268. TSH 1.495. Total cholesterol 275, triglycerides 612, vitamin B12 over 6000, hemoglobin A1c in November 2019 was 6.7%. A current hemoglobin A1c was ordered and is pending. ASSESSMENT AND PLAN: 1. Hypoglycemia. The patient presented with severe symptomatic hypoglycemia, resulting in possible syncope, fall and trauma. I believe that the root cause is replacing her usual long-acting insulin regimen with a fast-acting insulin likely NovoLog at a very large dose of 60 units. The patient was counseled extensively about this occurring and I explained in detail the fact that a rapid-acting insulin cannot be replaced for a long-acting insulin and went into detail about the mechanics of each. The patient seems to have a very good understanding of the implications of using rapid-acting insulin in this setting. Luckily, the duration of action of such insulin analogs would be fairly short lived. I believe the patient is already resolving her issues with hypoglycemia as her most recent one was at 178 mg/dL. That said, I will try to implement long-acting insulin coverage later tonight if her blood glucose permits it. I will do so at a much reduced dose of Lantus at 28 units q.p.m. in addition to maintenance with Humalog supplemental scale low intensity to be used as needed. Blood glucose monitoring will commence a.c. and at bedtime and further therapeutic adjustments will be made accordingly. Hypoglycemia will be managed as per the [facility] hypoglycemia protocol. 2. Type 2 diabetes mellitus, as noted above. 3. Diabetic neuropathy. The patient has significant baseline issues with [address] [address] CONSULTATION Name: HOA LUNA Room #: 202-P [facility] IN M.R.#: [id number] Admission: 07/16/20 Attend Phys: Reza Lindsey MD Discharge: Date of : 42 Report #: [id number] diabetic neuropathy. She does fairly well on gabapentin 300 mg b.i.d. and is maintained on the same. She is to continue with the same. 4. Dyslipidemia. The patient has severe dyslipidemia with triglyceride level of over 600. I would like to address this immediately and we will do so by initiating therapy with fenofibrate. This will require long-term followup. I certainly appreciate this consultation by Dr. Lindsey. <ELECTRONICALLY SIGNED> By: Greyson De Jesus MD 07/17/20 0951 [id number] [id number] Greyson De Jesus MD /nt
--- NOTE | 2020-07-17 11:02 | NUR ---
Spoke with therapy, phys and patient. patient with need for post acute care. She has been at [facility] in the past but reports not a good fit for her. She has [facility] list to review. SP with sons girlfriend who reports her son at work hard to reach. she is aware of need for post acute care.
[2020-07-17 11:14] VITALS: BP 133/53
--- NOTE | 2020-07-17 15:22 | NUR ---
FAXED REFERRAL TO [facility] RECEIVED CONFIRMATION AND LEFT MSG WITH [facility] IN ADM TO SUBMIT FOR AUTH IF THEY CAN ACCEPT. DP TO FOLLOW.
[2020-07-17 15:32] VITALS: BP 145/70
[2020-07-17 20:00] VITALS: BP 137/51
--- NOTE | 2020-07-17 20:02 | NUR ---
ASSUMED CARE AT CHANGE OF SHIFT. ALERT X3 WITH FORGETFULNES. PT VOICED CONCERN REGARDING LIVING WITH SON AND HIS GIRLFRIEND. PT UNDERSTAND SHE WILL DC TO SKILLED FACILITY FOR THERAPY. MOMENTS OF ANXIOUSNESS THROUGH OUT THE SIFT. NOT IMPULSIVE, DENISES SOB, DENSIES CHEST PAIN, ASSIST X1 WITH WALKER. NSR ON TELE. NEW IV PLACED DUE TO PT ACCIDENTLY DC FIELD SIGHT IV. CALLS FOR ASSISTANCE. FALL PRECAUTION IN PLACE.
[2020-07-18 01:06] LABS: GLYCOHEMOGLOBIN (HGB A1C) 5.8 % (4.8-5.6)
--- NOTE | 2020-07-18 01:21 | NUR ---
ASSESSMENTS CHARTED, MEDS CHARTED GIVEN. PATIENT GAVE VERBAL PERMISSION FOR ME TO TALK TO SON ABOUT CARE PLAN. BG 151, REFUSED INSULIN. C/O PAIN IN LEFT HIP. FALL PRECAUTIONS IN PLACE DURING SHIFT. PLAN OF CARE IS FOR PATIENT TO TRANSFER TO [facility] IF APPROVED.
[2020-07-18 03:40] VITALS: BP 144/59
[2020-07-18 05:57] LABS: HEMATOCRIT 32.8 % (37.0-47.0); HEMOGLOBIN 10.9 gm/dL (12.0-15.0); MCH 31.7 pg (26.0-34.0); MCHC 33.3 g/dL (28.0-37.0); MCV 95.2 fL (80.0-100.0); RBC 3.44 mil/uL (4.20-5.00); RDW 14.1 % (10.5-14.5); WBC 6.3 thou/uL (4.0-11.0)
[2020-07-18 06:16] LABS: CALCIUM 9.4 mg/dL (8.5-10.1)
[2020-07-18 08:00] VITALS: BP 145/80
[2020-07-18 12:00] VITALS: BP 152/55
--- NOTE | 2020-07-18 15:27 | NUR ---
[facility] reports no beds until next week. they rec referral yesterday and alerted casemgt today. Sp with patient. she is reviewing the list for post acute care. inquiring into [facility] and [facility] is accepting and [facility] is no admissions.
[2020-07-18 20:00] VITALS: BP 127/50
--- NOTE | 2020-07-18 23:03 | NUR ---
ASSUMED CARE OF PT FROM DAY SHIFT, PT RESTING IN BED , NO CONCERNS VOICED. NOTED PT TO HAVE FLAT AFFECT. DRY COUGH NOTED. PARISH VISITOR SHOWS NSR. PO MEDICATION TAKEN. WILL CONINTUE WITH CURRENTPLAN OF CARE.
[2020-07-19 04:00] VITALS: BP 141/63
[2020-07-19 07:31] VITALS: BP 129/56
--- NOTE | 2020-07-19 12:30 | NUR ---
Received update that [facility] has patient on list and has bed avail today and auth. Updated patient who is in agreement with [facility]. Updated phys. Planned dc today.
--- NOTE | 2020-07-19 12:34 | NUR ---
08:00 PT. ALERT AND PLEASANT, SLIGHTLY FLAT AFFECT OVERALL. DISCUSSED BLOOD SUGAR MANAGEMENT AND TESTING AND DOSING ISSUES PRIOR AND WHAT HAPPENED TO HER FOR HER BS TO GET SO LOW. SHE DENIES ANY N+V THIS AM. NO CP, NO SOB.
--- NOTE | 2020-07-19 12:36 | NUR ---
PT. SLEPT THIS AM . IV SITE IS C,D,I. DENIIES ANY FEELINGS OF LOW BS. DENIES ANY CP. HAD LONG CHAT ABOUT HER SISTER WHO WAS AN RN WHO PASSED FROM [facility] AND WHY. AMBULATED TO [facility] WITH 1 ASSIST, STEADY ON HER FEEET AND GOOD BALANCE.
[2020-07-19 12:45] VITALS: BP 137/60
[2020-07-19] MEDS ORDERED: FENOFIBRATE160 MG PO (12:52)
[2020-07-19] MEDS ORDERED: TRADJENTA5 MG PO (12:53)
--- NOTE | 2020-07-19 15:02 | NUR ---
PT TO DC TODAY TO [facility] FAXED DC ORDERS/SUMMARY SPOKE WITH [facility] IN INTAKE AND THEY CANNOT ADMIT TIL THEY HAVE A COVID RESULT AND IT IS PENDING THEIR OFFICE IS LEAVING AT 1500 TODAY AND THAT THEY WILL NOT BE ABLE TO TAKE PT TIL WEDNESDAY. GRAEME NOTIFIED GENO ([facility]IRDIE) SHE WILL NOTIFY
--- NOTE | 2020-07-19 15:22 | NUR ---
14:00-cOVID TEST REQUESTED AND PERFORMED PER STAFF, SENT TO THE LAB AND CAN DISCHARGE ONCE THOSE ARE BACK. SHE IS "FEELING BETTER THIS AFTERNOON OVERALL NOW". DENIES FEELING LOW BLOOD SUGAR SYMPTOMS OR ANY SOB, ETC. AMBULATED TO [facility] AND WAS STEADY ON TRANSFER AND HER FEET.
--- NOTE | 2020-07-19 15:39 | NUR ---
patient accepted to [facility]. patient and son pleased and awaited transport. Need Covid test. Ordered, however results approx 4-5 hours and [facility] unable to accept until Wednesday. Updated phys, patient and left son message on voice mail.
[2020-07-19 15:58] VITALS: BP 113/60
--- NOTE | 2020-07-19 17:27 | NUR ---
PT. WILL BE TRANSFERRING OUT ON WEDNESDAY NOW, EXPLAINED SUCH TO HER SHE WAS FINE WITH SUCH. AMBULATED TO THE AT THIS TIME STABLE ON TRANSFER AND DENIES FEELING "DIZZY", ETC. NO SOB, NO CP.
[2020-07-19 20:20] VITALS: BP 150/80
[2020-07-20 03:30] VITALS: BP 145/59
--- NOTE | 2020-07-20 03:50 | NUR ---
ASSESSMENT DOCUMENTED.PT SLEPT WELL THROUGH THE NOC.NO CONCERNS VOICED.PT TO DISCHARGE TO SNF.
[2020-07-20 07:30] VITALS: BP 143/91
--- NOTE | 2020-07-20 10:19 | NUR ---
PT SITTING IN BED,RESTING, ASSESSED, POC REVIEWED, PT AWARE STILL WAITING ON COVID RESULTS, FOR INSURANCE APPROVAL AND HOPE TO TRANSFER TO [facility] ON WEDNESDAY. ASKED IF SHE COULD SEND LETTER TO DAUGHTER WITHOUT HER SON KNOWING, WILL TRY TO ACCOMODATE.
[2020-07-20 11:55] VITALS: BP 120/66
[2020-07-20 21:45] VITALS: BP 112/63
--- NOTE | 2020-07-21 03:03 | NUR ---
ASSESSMENT DOCUMENTED.PT BEEN RESTING IN NO ACUTE DISTRESS.A/OX4.VSS.DENIES ANY NEEDS AT THIS TIME.POC IS TO DISCHARGE ON WEDNESDAY TO [facility].
[2020-07-21 04:45] VITALS: BP 117/73
[2020-07-21 07:05] VITALS: BP 136/59
[2020-07-21 16:10] VITALS: BP 144/44
--- NOTE | 2020-07-21 18:23 | NUR ---
ASSESSMENT DOCUMENTED, FORGETFUL AT TIMES, AND HAS PERIODS OF CONFUSION. VSS, BG <200, PROGRESSING TOWARDS GOALS AND WILL CONTINUE WITH POC.
[2020-07-21 20:17] VITALS: BP 104/81
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
[2020-07-21 23:47] VITALS: BP 128/49
--- NOTE | 2020-07-22 03:57 | NUR ---
CHILD PROTECTIVE INVESTIGATOR ACTIVATED FOR CHEST PAIN. PT TRANSFERED TO TELE FOR CARDIAC MONITORING. SEE RAPID RESPONSE DOCUMENTATION FOR FURTHER DETAILS.
[2020-07-22 04:00] VITALS: BP 154/90
--- NOTE | 2020-07-22 04:28 | NUR ---
ASSUMED PT CARE AT 0405 (RECEIVED BEDSIDE REPORT). PT TRANSFERED FROM 4S. PT STATES THAT CHEST PAIN HAS BEEN RESOLVED. VITAL SIGNS STABLE. FALL BUNDLE IN PLACE, CALL LIGHT IN REACH. WILL CONTINUE TO MONITOR.
--- NOTE | 2020-07-22 05:10 | NUR ---
PT TRANSFERRED FROM AT 2330. PT TRANSFERRED TO 4W AT 0400 AFTER RAT TEAM DUE TO CHEST PAIN. SEE RAPID RESPONSE INTERVENTION.
--- NOTE | 2020-07-22 07:29 | NUR ---
I AGREE WITH ALL CHARTING BY JF RESTREPO
--- NOTE | 2020-07-22 08:13 | EKG ---
[facility] [place] [address] ELECTROCARDIOGRAM REPORT Name: HOA LUNA Room #: 462- ADM IN M.R.#: [id number] Admission: 07/16/20 Attend Phys: Reza Lindsey MD Discharge: Date of : 42 Report #: [id number] THIS REPORT FOR: cc: Zoran Kinney MD, Steven A. 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: MATILDA : 1940 Requested By: Lula Lord Order Number: [id number] MD: Efrain Ndiaye Measurements Intervals [place] Rate: 75 P: 35 DE: 164 QRS: 27 QRSD: 99 T: 62 QT: 391 QTc: 437 Interpretive Statements Sinus rhythm Inferior infarct, old Compared to ECG 07/16/2020 04:42:11 Myocardial infarct finding now present Ventricular premature complex(es) no longer present ST (T wave) deviation no longer present Electronically Signed On 07-22-2020 8:13:29 CDT by Efrain Ndiaye [email or web address] <ELECTRONICALLY SIGNED> By: Efrain Ndiaye MD 07/22/20812 6 6 Efrain Ndiaye MD /EPI
[2020-07-22 08:50] VITALS: BP 133/56
--- NOTE | 2020-07-22 12:38 | 2DMMODE ---
[facility] [place] [address] 2 D/M-MODE ECHOCARDIOGRAM Name: HOA LUNA Room #: 462-P ADM IN M.R.#: [id number] Admission: 07/16/20 Attend Phys: Reza Lindsey MD Discharge: Date of : 42 Report #: [id number] THIS REPORT FOR: cc: Zoran Kinney MD, Steven A. MD Lammoglia, Francisco J. MD ~ APPROVED REPORT Study performed: 07/22/2020 10:51:15 EXAM: Comprehensive 2D, Doppler, and color-flow Echocardiogram Patient Location: Bedside Room #: 462 Status: routine BSA: 1.85 HR: 90 bpm BP: 133/56 mmHg Rhythm: NSR Other Information Study Quality: Adequate Indications Diabetes CAD Chest Pain Hypertension/HDD 2D Dimensions RVDd: 38.58 mm IVSd: 11.69 (7-11mm) LVOT Diam: 18.86 (18-24mm) LVDd: 34.66 mm PWd: 12.93 (7-11mm) Ascending Ao: 31.48 (22-36mm) LVDs: 23.58 (25-40mm) Aortic Root: 27.27 mm IVC: 14.00 mm Volumes Left Atrial Volume (Systole) Single Plane 4CH: 33.06 mL Single Plane 2CH: 36.82 mL LA ESV Index: 22.00 mL/m2 Aortic Valve AoV Peak Phillip.: 2.42 m/s AO Peak Gr.: 15.24 mmHg LVOT Max P.67 mmHg [facility] [address] [place] [address] 2 D/M-MODE ECHOCARDIOGRAM Name: ZAN LUNATY Denise Room #: 462-P [facility] IN [facility].#: [id number] Admission: 07/16/20 Attend Phys: Reza Lindsey, Discharge: Date of : 42 Report #: [id number] AO Mean Gr.: 14.13 mmHg LVOT Mean P.52 mmHg AO V2 Mean: 1.75 m/s LVOT Max V: 1.29 m/s AO V2 VTI: 45.24 cm LVOT Mean V: 0.87 m/s BRYNN (VTI): 1.44 cm2 LVOT V1 VTI: 23.30 cm BRYNN Vmax: 1.49 cm2 SV (LVOT): 65.07 mL Mitral Valve E/A Ratio: 0.7 MV Decel. Time: 157.06 ms MV E Max Phillip.: 0.75 m/s MV A Phillip.: 1.10 m/s MV PHT: 45.55 ms IVRT: 73.82 ms Pulmonary Valve PV Peak Phillip.: 1.47 m/s PV Peak Gr.: 8.59 mmHg Pulmonary Vein P Vein S: 0.46 m/s P Vein A: 0.33 m/s P Vein D: 0.43 m/s P Vein A Dur.: 115.3 msec P Vein S/D Ratio: 1.07 Left Ventricle The left ventricle is normal size. There is normal LV segmental wall motion. Mild concentric left ventricular hypertrophy. The left ventricular systolic function is normal. The left ventricular ejection fraction is within the normal range. LVEF is 55-60%. The left ventricular diastolic function is normal. Right Ventricle The right ventricle is normal size. The right ventricular systolic function is normal. Atria The left atrium size is normal. Right atrium is at the upper limits of normal. Aortic Valve The aortic valve is normal in structure. Aortic valve is calcified. Trace aortic regurgitation. Mild aortic stenosis. Mitral Valve The mitral valve is normal in structure. Trace mitral regurgitation. No evidence of mitral valve stenosis. [facility] [address] [place] [address] 2 D/M-MODE ECHOCARDIOGRAM Name: HOA LUNA Room #: 462-P [facility] IN [facility]#: [id number] Admission: 07/16/20 Attend Phys: Reza Lindsey, Discharge: Date of : 42 Report #: [id number] Tricuspid Valve The tricuspid valve is normal in structure. There is no tricuspid valve regurgitation noted. Pulmonic Valve The pulmonary valve is normal in structure. Trace pulmonic regurgitation. Great Vessels The aortic root is normal in size. IVC is normal in size and collapses >50% with inspiration. Pericardium There is no pericardial effusion. <Conclusion> The left ventricle is normal size. LVEF is 55-60%. The right ventricle is normal size. The aortic valve is normal in structure. Aortic valve is calcified. The mitral valve is normal in structure. Trace mitral regurgitation. The tricuspid valve is normal in structure. The pulmonary valve is normal in structure. Trace pulmonic regurgitation. There is no pericardial effusion. <ELECTRONICALLY SIGNED> By: Fito Lugo MD 07/22/20 1238 1238 1238 Fito Lugo MD /INF
[2020-07-22 15:22] VITALS: BP 123/56
--- NOTE | 2020-07-22 15:25 | NUR ---
PT DISCHARGING TODAY TO [facility] FOR SKILLED STAY FAXED DC ORDERS/SUMMARY AND COVID RESULT TO FACILITY SPOKE WITH LALO IN ADM SHE RECEIVED ORDERS AND ARRANGED TRANSPORT BY [facility] FOR 1530 TODAY. NOTIFIED PT'S SON VENESSA OF DC AND TIME OF TRANSPORT. UNIT NOTIFIED AND CHART COPY PER US, RN TO CALL REPORT TO [phone].
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
--- NOTE | 2020-07-22 16:09 | NUR ---
PT HAD ECH THIS AM THAT SHOWED NO CHANGE FROM LAST ECHO. CARE TEAM INDICATED THAT PT IS MEDICALLY STABLE TO DC TO [facility] THIS DAY. CHART COPY MADE. ORDERS FAXED. REPORT CALLED TO FACILITY. CM CALLED AND NOTIFIED PT'S SON HE IS AWARE AND AGREEALBE. [facility] TRANSPORT ARRANGED FOR 1530. NO OTHER CM INTERVENTION INDICATED. CASE CLOSED.
== END 2020-07-22 16:20 | DRG 637 ==
LOC: ER 04:28 → 2N 05:46 → EROBS 05:46 → 2N 06:14 → 4S 07-21 23:38 → 4W 07-22 04:26
PROVIDERS: Emergency Medicine; Hospitalist; Nurse Practitioner; ADMIT Internal Medicine; ATTEND Internal Medicine
DX: E11.649 Type 2 diabetes mellitus with hypoglycemia without coma (principal); G93.41 Metabolic encephalopathy; I69.354 Hemiplegia and hemiparesis following cerebral infarction affecting left non-dominant side; I50.32 Chronic diastolic (congestive) heart failure; I13.0 Hypertensive heart and chronic kidney disease with heart failure and stage 1 through stage 4 chronic kidney disease, or unspecified chronic kidney disease; I16.0 Hypertensive urgency; E78.5 Hyperlipidemia, unspecified; E66.9 Obesity, unspecified; J45.909 Unspecified asthma, uncomplicated; G89.29 Other chronic pain; M54.5 Low back pain; M10.9 Gout, unspecified; I25.5 Ischemic cardiomyopathy; N18.3 Chronic kidney disease, stage 3 (moderate); E11.51 Type 2 diabetes mellitus with diabetic peripheral angiopathy without gangrene; E87.6 Hypokalemia; K21.9 Gastro-esophageal reflux disease without esophagitis; G47.00 Insomnia, unspecified; E53.8 Deficiency of other specified B group vitamins; E11.22 Type 2 diabetes mellitus with diabetic chronic kidney disease; M48.061 Spinal stenosis, lumbar region without neurogenic claudication; L82.1 Other seborrheic keratosis; E78.00 Pure hypercholesterolemia, unspecified; G47.33 Obstructive sleep apnea (adult) (pediatric); R07.89 Other chest pain; I08.3 Combined rheumatic disorders of mitral, aortic and tricuspid valves; Z20.828 Contact with and (suspected) exposure to other viral communicable diseases; E11.42 Type 2 diabetes mellitus with diabetic polyneuropathy; I25.2 Old myocardial infarction; Z95.5 Presence of coronary angioplasty implant and graft; Z88.1 Allergy status to other antibiotic agents; Z91.010 Allergy to peanuts; Z88.2 Allergy status to sulfonamides; Z91.048 Other nonmedicinal substance allergy status; Z90.710 Acquired absence of both cervix and uterus; Z95.810 Presence of automatic (implantable) cardiac defibrillator
CPT/HCPCS: 10081; 10195

== ENCOUNTER 2020-07-29 23:43 | Inpatient (IN) | payer OTHER ==
[~2020-07-29] VITALS: Ht 162.6 cm; Wt 74.0 kg
[~2020-07-29 23:43] MED LIST changes: +CYCLOBENZAPRINE10 MG PO; +FENOFIBRATE160 MG PO; +TRADJENTA5 MG PO; +VITAMIN B-121000 MC2 PO
[2020-07-29 23:44] VITALS: BP 177/90
--- NOTE | 2020-07-30 00:02 | NUR ---
PATIENT TO CT AT THIS TIME. SITTER WITH METROPOLITAN EDITOR AND PATIENT
[2020-07-30 00:31] LABS: ANION GAP 10 mmol/L (7-16); BUN 19 mg/dL (7-18); CALCIUM 9.3 mg/dL (8.5-10.1); CHLORIDE 99 mmol/L (98-107); CO2 25 mmol/L (21-32); CREATININE 1.1 mg/dL (0.6-1.0); GLUCOSE 152 mg/dL (74-106); SODIUM 134 mmol/L (136-145)
[2020-07-30 00:34] LABS: URINE BILIRUBIN NEGATIVE (Negative); URINE BLOOD 2+ (Negative); URINE CLARITY CLEAR; URINE COLOR YELLOW; URINE GLUCOSE-RANDOM* NEGATIVE (Negative); URINE KETONES NEGATIVE (Negative); URINE LEUKOCYTES-REFLEX NEGATIVE (Negative); URINE NITRITE-REFLEX NEGATIVE (Negative); URINE PROTEIN (DIPSTICK) NEGATIVE (Negative); URINE UROBILINOGEN 0.2 E.U./dl (0.2-1.0)
[2020-07-30 00:36] LABS: ALBUMIN 3.4 g/dL (3.4-5.0); SALICYLATE < 2.8 mg/dL (2.8-20.0); SGOT 22 U/L (15-37); SGPT 21 U/L (30-65); TOTAL BILIRUBIN 0.3 mg/dL (0.2-1.0); TOTAL PROTEIN 7.4 g/dL (6.4-8.2)
[2020-07-30 00:38] LABS: ABSOLUTE NEUTROPHILS 4.2 thou/uL (1.4-8.2); EOSINOPHILS 3.2 % (0.0-3.0); HEMATOCRIT 32.7 % (37.0-47.0); LYMPHOCYTES 37.9 % (24.0-44.0); MCH 31.2 pg (26.0-34.0); MCHC 33.7 g/dL (28.0-37.0); MCV 92.5 fL (80.0-100.0); MONOCYTES 6.7 % (1.0-8.0); PLATELET COUNT 458 thou/uL (150-400); POLYS 51.2 % (36.0-66.0); RBC 3.53 mil/uL (4.20-5.00); RDW 13.9 % (10.5-14.5); WBC 8.2 thou/uL (4.0-11.0)
[2020-07-30 00:40] LABS: AMP/METHAMP Negative (Negative); BARBITURATES Negative (Negative); BENZODIAZEPINES Negative (Negative); COCAINE Negative (Negative); METHADONE Negative (Negative); OPIATES Negative (Negative); PCP Negative (Negative)
[2020-07-30 00:54] LABS: BACTERIA-REFLEX 1-9 Few /HPF (None Seen); CASTS None Seen /LPF (None Seen); MUCUS 0-3 Light strn/LPF (None Seen); SQUAMOUS 0-3 Few /LPF (0-3); URIC ACID CRYSTALS 0-3 Few /LPF (None Seen); URINE RBC 3-10 Few /HPF (0-2); URINE WBC-REFLEX 0-5 Rare /HPF (0-5)
--- NOTE | 2020-07-30 01:09 | NUR ---
WALLY FROM [facility] CONTACTED FOR PATIENT ASSESSMENT AND EVALUATION
--- NOTE | 2020-07-30 01:40 | NUR ---
[facility] NURSE AT BEDSIDE FOR EVALUATION
--- NOTE | 2020-07-30 09:00 | EKG ---
[facility] [place] [address] ELECTROCARDIOGRAM REPORT Name: HOA LUNA Room #: [facility].#: [id number] Admission: 07/29/20 Attend Phys: Discharge: Date of : 44 Report #: [id number] THIS REPORT FOR: cc: Zoran Kinney MD, Steven A. MD Santiago, Patrick MD [facility] ~ THIS REPORT FOR: //name// [facility] ED Test Date: 2020-07-30 Test Time: 00:16:27 Pat Name: HOA LUNA Department: Room: Gender: F Bright Cutter: [facility] : 1940 Requested By: Oniel Leblanc Order Number: [id number] MD: Sonu Treviño Measurements Intervals [place] Rate: 85 P: 72 GA: 179 QRS: 50 QRSD: 100 T: 88 QT: 385 QTc: 458 Interpretive Statements Sinus rhythm Nonspecific T abnormalities, lateral leads Inferior Q's Compared to ECG 07/22/2020 03:37:36 T-wave abnormality now present No significant change Electronically Signed On 07-30-2020 9:00:07 CDT by Sonu Treviño [email or web address] <ELECTRONICALLY SIGNED> By: Sonu Treviño MD, FAC 07/30/2000 0016 0016 Sonu Treviño MD, [facility] /EPI
[2020-07-30 11:28] VITALS: BP 141/60
[2020-07-30 11:33] VITALS: BP 151/88
--- NOTE | 2020-07-30 12:05 | NUR ---
DPRT SUMMARY INCORRECT. PT IV REMOVED BEFORE TRANSFER BY TECH.
[2020-07-30 14:48] VITALS: BP 166/83
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
[2020-07-30 16:21] VITALS: BP 166/83
[2020-07-30 19:22] VITALS: BP 142/70
--- NOTE | 2020-07-31 00:30 | NUR ---
Care assumed of patient at 1915: Patient laying in bed at start of shift, awake. Patient alert and oriented x4. Patient presents with flat, blunted affect. Appears depressed, trouble making eye contact. Patient cooperative with assessment. Patient denies current SI/HI/AH/VH. Reports that she has only had suicidal thoughts once which was 07/29/20 which led to hospitalization. Patient denies depression and anxiety. Patient provides simple one word answers but is avoiding coversation. Withdrawn to her room this evening. Patient declined HS snack. Patient took HS medication whole without difficulty. Patient compliant with fall risk education and using her call andrade thus far this evening. Patient reported back pain at start of shift but declined pain medication intervention. Patient later requested for PRN Tylenol for her lower back pain. Patient observed sleeping soundly soon after medication administered. Patient displaying some paranoia behaviors regarding surroundings. After initial assessment, patient has had periods of confusion and disorientation observed. Patient stating that she was currently at [facility], which is the facility she arrived from. Patient having difficulty remembering where the toilet paper is located, which was pointed out approximately 5 minutes prior. Patient is resting quietly at this time.
[2020-07-31 08:47] VITALS: BP 136/70
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
--- NOTE | 2020-07-31 15:31 | NUR ---
AT 1445 TYLENOL 650 MG PO GIVEN FOR C/O LOWER BACK PAIN. PATIENT RATES PAIN A 5. 1535 PATIENT STATES PAIN HAS DECREASES RATING PAIN AT A 4. PATIENT LYING IN BED AT THIS TIME DENING OTHER NEEDS. WILL CONTINUE TO OBSERVE
[2020-07-31 19:18] VITALS: BP 114/59
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
--- NOTE | 2020-08-01 06:05 | NUR ---
CALLED AND SPOKE WITH ISAMAR MARTINS REGARDING PATIENT BP OF 151/44 AND HR 95. SHE ORDERED TO HOLD METOPROLOL AND MAY RECHECK BP IN ONE HOUR TO SEE IF DIASTOLIC IS BACK UP AND MAY GIVE THEN. PATIENT IS A/0 X 4 AND AWAKE. WILL CONTINUE TO MONITOR.
[2020-08-01 09:00] VITALS: BP 121/66
--- NOTE | 2020-08-01 09:59 | NUR ---
0700 ASSUMED CARE OF PATIENT, PATIENT IN BED AT THAT TIME. PATIENT TO DAYROOM SITTING WITH PEER COMMUNICATING WELL. 0845 MEDICATION TAKEN WHOLE WITHOUT DIFFICULTY. NO C/O PAIN, PATIENT ALERT AND ORIENTED X4. PATIENT DENIES SI/HI, DENIES ANXIETY YET DOES QUESTION IF ANXIETY MEDICATION IS ORDERED. MEDICATIONS REVIEWED WITH PATIENT. PATIENT STATES "I DO NOT NEED ANYTHING FOR ANXIETY RIGHT NOW, IM DOING OK RIGHT NOW". PATIENT VOICED HAVING LITTLE DEPRESSION. PATIENT PRESENT FOR GROUP THIS AM. PATIENT IS CALM AND COOPERATIVE.
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
[2020-08-01 19:40] VITALS: BP 136/64
[2020-08-01 20:00] VITALS: BP 136/64
--- NOTE | 2020-08-01 23:40 | NUR ---
PATIENT HAS BEEN RESTING IN BED ALL NIGHT. SHE HAD SOME INDIGESTION SINCE SUPPER TONIGHT. ELEVATED HOB WHICH HELPED RELIEVE SOME DISCOMFORT. LAST CALCIUM CARBONATE GIVEN AT 1600 AND GAVE HER ANOTHER DOSE OF CALCIUM CARBONATE 1000MG AT 2200. HOB PUT BACK DOWN SO PATIENT COULD SLEEP EASIER. PATIENT UP TO BATHROOM WITH WALKER. STEADY ON FEET. DENIES SI/HI/AVH. A/0 X 4. BED ALARM ON AND BED IN LOW POSITION. ROUTINE ROUNDING TO ASSESS FOR SAFETY AND STATUS OF PATIENT. PATIENT HAS BEEN CALM AND COOPERATIVE. SHE TOOK HER MEDS WHOLE WITHOUT ISSUE. STARTED INCREASED DOSE OF SEROQUEL 50MG TONIGHT. CONTINUING TO MONITOR.
[2020-08-02 07:00] VITALS: BP 123/69
--- NOTE | 2020-08-02 11:35 | NUR ---
Assumed care 0700. No offered complaints/concerns. Compliant with medications, self feeding, ADL's. Alert and oriented x 4.
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
--- NOTE | 2020-08-02 16:46 | NUR ---
GENO spoke with [facility]. They will not accept the Pt back due to the SI. GENO explained Pt denies SI, however [facility] stated it has not been enough time since the Pt's SI to accept Pt back.
[2020-08-02 19:15] VITALS: BP 121/61
--- NOTE | 2020-08-02 23:09 | NUR ---
Care assumed of patient at 1915: Patient sleeping in bed at start of shift. Patient easily aroused. Patient flat, depressed. Alert and oriented x4. Irritable at times. Appears to be paranoid when asked her location and started to say "I'm in hiding". Patient denies pain or discomfort. Denies SI/HI/AH/VH. Originally resistive to allowing nurse assisting her to the bathroom but allowed nurse to provide SBA after fall education provided. Patient took HS medication whole without difficulty. Reported some "heartburn" and requested Tums. Medication provided. Denies depression and anxiety. Denied HS snack. Isolated self to her room throughout the evening. Patient has been asleep most of the shift thus far.
--- NOTE | 2020-08-03 08:36 | NUR ---
PT IN ROOM AFTER BREAKFAST. PT STATED SHE THOUGHT SHE HAS A SPRANGED LITTLE FINGER. PT STATED SHE WANTED A SHOWER TODAY. PT STATED SHE USES A SHOWER CHAIR AT HOME AND HAND HELD SHOWER SPOUT. PT UP WITH WALKER. PT STATED SHE HAS PAIN TO LOWER BACK OF 4 ON 1-10 SCALE. PT TOOK MEDS WITHOUT AND ISSUES.
[2020-08-03 08:40] VITALS: BP 139/67
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
--- NOTE | 2020-08-03 15:00 | NUR ---
PT COMPLAINED OF UPSET STOMACH ADM TUMS 1000 MG PO.
[2020-08-03 19:30] VITALS: BP 150/63
[2020-08-03 20:45] VITALS: BP 150/63
--- NOTE | 2020-08-03 23:25 | NUR ---
PATIENT HAS BEEN IN HER ROOM IN BED ALL EVENING. SHE DID AWAKE TO USE THE RESTROOM AND WAS UP WITH WALKER WITH STEADY GAIT. SHE ALSO VISITED FOR AWHILE WITH HER ROOM MATER WHEN SHE WENT TO BED. PATIENT HAD TUMS AROUND SUPPER TIME TONIGHT AND DID NOT EAT A SNACK TONIGHT D/T INDIGESTION. SHE HAD A HALF DOSE OF CALCIUM CARBONATE (500MG) AT 2100 ON HER REQUEST. SHE STATES THE INDIGESTION IS BETTER THAN IT HAD BEEN BUT JUST WANTED TO TRY HALF A DOSE THIS TIME. PATIENT IS SLEEPING AT THIS TIME. BED IN LOW POSITION AND BED ALARM IS ON. PATIENT DENIES PAIN, SI/HI/AVH. SHE IS A/0X3. ROUTINE ROUNDS TO ASSESS SAFETY AND STATUS OF PATIENT.
[2020-08-04 07:44] VITALS: BP 148/66
--- NOTE | 2020-08-04 08:33 | NUR ---
PT SITTING OUT IN DINING ROOM EATING BREAKFAST. PT TOOK MEDS WITHOUT ANY ISSUES. PT STATED SHE HAS CHRONIC BACK PAIN TO LOWER AREA OF 4 ON 1-10 SCALE. PT AFFECT IS FLAT WITH MONOTONE VOICE. PT USES WALKER FAITHFULLY.
[2020-08-04 08:40] VITALS: BP 148/66
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
--- NOTE | 2020-08-04 17:44 | NUR ---
PT SITTING OUT IN DINING ROOM VISITING WITH HER ROOMMATE. PT COMPLIENT WITH MEDS TODAY.
[2020-08-04 19:45] VITALS: BP 125/48
[2020-08-04 20:45] VITALS: BP 125/48
--- NOTE | 2020-08-05 02:31 | NUR ---
PATIENT HAS BEEN UP WITH WALKER WITH STEADY GAIT TONIGHT. SHE WALKED TO DAYROOM FOR HS SNACK AND VISITED FOR AWHILE BEFORE GOING BACK TO BED AROUND 2100. SHE HAS BEEN A/O X 3. SHE DENIES SI/HI/AVH. SHE HAS NOT HAD ANY INDIGESTION TONIGHT AND THE PEPCID DOES APPEAR TO HAVE TAKEN CARE OF HER SYMPTOMS OF INDIGESTION. NEW ORDER RECEIVED TO INCREASE SEROQUEL TO 75MG PO STARTING 08/05/20. PATIENT TOOK HER MEDS WHOLE WITH WATER. SHE AND HER ROOM MATE ENJOY VISITING WITH EACH OTHER BEFORE BED TIME. SHE DENIES PAIN. BED IN LOW POSITION AND BED ALARM IS ON. WILL CONTINUE TO MONITOR.
--- NOTE | 2020-08-05 04:09 | NUR ---
PATIENT WITH C/O CHEST PAIN. SHE STATES THIS IS NOT UNCOMMON FOR HER AND THAT USUALLY OTC MEDS HELP IT GO AWAY BUT SHE COULDN'T RECALL WHAT SHE HAD USED. PT DESCRIBES JUST QUICK TWINGES OF ACHINESS IN LEFT CHEST. SHE IS ABSENT OF SOB. RESPIRATIONS EVEN AND UNLABORED. HOB IS UP AT 45 DEGREE ANGLE. VITALS TAKEN AND BP 130/48 P78 R16 AND 02SAT% 98. PATIENT DENIES STOMACH DISCOMFORT. SHE DOES STATE THAT SHE IS FEELING ANXIOUS THINKING ABOUT HOW SHE IS GOING TO LEAVE THIS HOSPITAL AND GETTING BACK HOME WITHOUT HER SON FINDING OUT. DR ROSANNA ISLAS AND ABOVE REPORTED TO HER. ORDER RECEIVED FOR SEROQUEL 25MG PO ONE TIME NOW AND TYLENOL 650MG PO. PATIENT DOES STATE THAT HER BACK IS A LITTLE SORE TOO. SHE HAS CHRONIC BACK PAIN. MEDS GIVEN WHOLE WITH WATER AT 0410. PATIENT APPEARS CALM AND IS RESTING IN BED. FREQUENT CHECKS TO SEE IF CHESTPAIN IS RESOLVING WITH CURRENT TREATMENT. BED IN LOW POSITION AND BED ALARM IS ON.
--- NOTE | 2020-08-05 05:35 | NUR ---
PATIENT HAS BEEN SLEEPING COMFORTABLY. DENIES CHEST PAIN. VITALS 156/74 72/16 97%02. RESPIRATIONS EVEN AND UNLABORED. NO SOB. BED IN LOW POSITION AND BED ALARM IS ON.
[2020-08-05 05:53] VITALS: BP 156/74
[2020-08-05 07:34] VITALS: BP 155/69
--- NOTE | 2020-08-05 11:40 | NUR ---
SW called Pts son Brannon concerning bringing a change of clothes for the Pt and her purse. Zafar stated he could bring it after he gets off work at 6pm today.
--- NOTE | 2020-08-05 15:57 | NUR ---
0700 ASSUMED CARE OF PATIENT, PATIENT IN BED AT THAT TIME. PATIENT OUT TO DAYROOM FOR BREAKFAST EATING 100 OF MEAL. PATIENT SITTING QUIETLY, DENIES NEEDS. NO C/O PAIN. LS CLEAR, ACTIVE BS. VS- STABLE, BLOD SUGAR 125. NO BEHAVIORS NOTED, DENIES SI/HI, 0825 MEDICATIONS GIVEN WHOLE WITHOUT DIFFICULTY. PATIENT BACL TO ROOM AFTER GROUP. PATIENT LYING DOWN RESTING. WILL CONTINUE TO OBSERVE
--- NOTE | 2020-08-05 17:08 | NUR ---
Pt has the following follow up appointments: PCP: Dr. Kinney 08/14/2020 @11:20 am Pt was refered to the following for intake [facility] for intake [phone] [facility] grief therapy [phone]
[2020-08-05 19:32] VITALS: BP 154/76
--- NOTE | 2020-08-06 05:09 | NUR ---
Pt. rested quietly during the night when checked on during frequent rounds. She offers no complaints. Cooperative with cares. Bed alarm is on.
[2020-08-06 07:16] VITALS: BP 157/70
[2020-08-06 10:14] VITALS: BP 157/70
[2020-08-06] MEDS ORDERED: COZAAR100 MG PO (10:34)
[2020-08-06] MEDS ORDERED: SEROQUEL 50 MG50 MG PO (10:35)
[2020-08-06] MEDS ORDERED: PEPCID20 MG PO (10:35)
--- NOTE | 2020-08-06 12:09 | NUR ---
SW sent HH referrals to: [facility] [phone] [facility] [phone] [facility] [phone] Pt d/c home with HH. Pt recieved a walker from [facility] upon discharge.
--- NOTE | 2020-08-06 14:35 | NUR ---
DISCHARGE INSTRUCTIONS REVIEWED WITH PATIENT INCLUDING WHEN TO SEEK EMERGENCY TREATMENT -DISCHARGE MEDICATIONS DOSES AND TIMES -RX PROVIDED. FOLLOW UP APPOINTMENTS AND RECOMMNDATIONS . HOME MEDICATIONS STORED IN PHARMACY RETREIVED AND SENT WITH PT ALONG WITH PURSE AND REMIANING P[employer]OELL BELONGINGS. UP IN MOOD AND JOKING WITH STAFF AND ROOMMATE AT TIME OF DC. DENIES SI/SH/HI. DENIES ACUTE ANXIETY. NO NOTED OR REPORTED PSYCHOSIS.LEFT FLOOR VIA WC ACCOMPNIED BY HOSPITAL STAFF . DENIES C/O AT TIME OF DC
--- NOTE | 2020-08-06 17:03 | NUR ---
GENO sent a Referral for Home health to the following: [facility] health [phone] [facility] [phone]
== END 2020-08-06 12:00 | disposition home health service (06) | DRG 885 ==
LOC: ER 23:43 → SBH 07-30 12:21
PROVIDERS: Emergency Medicine; ADMIT Psychiatry & Neurology Psychiatry; ATTEND Psychiatry & Neurology Psychiatry
DX: F32.3 Major depressive disorder, single episode, severe with psychotic features (principal); R45.851 Suicidal ideations; I13.0 Hypertensive heart and chronic kidney disease with heart failure and stage 1 through stage 4 chronic kidney disease, or unspecified chronic kidney disease; I50.32 Chronic diastolic (congestive) heart failure; F29 Unspecified psychosis not due to a substance or known physiological condition; R26.9 Unspecified abnormalities of gait and mobility; I25.10 Atherosclerotic heart disease of native coronary artery without angina pectoris; E78.5 Hyperlipidemia, unspecified; M19.90 Unspecified osteoarthritis, unspecified site; E11.22 Type 2 diabetes mellitus with diabetic chronic kidney disease; G89.29 Other chronic pain; M54.9 Dorsalgia, unspecified; K21.9 Gastro-esophageal reflux disease without esophagitis; F41.9 Anxiety disorder, unspecified; Z20.828 Contact with and (suspected) exposure to other viral communicable diseases; M10.9 Gout, unspecified; E11.42 Type 2 diabetes mellitus with diabetic polyneuropathy; Z86.73 Personal history of transient ischemic attack (TIA), and cerebral infarction without residual deficits; Z95.5 Presence of coronary angioplasty implant and graft; I25.2 Old myocardial infarction; Z79.899 Other long term (current) drug therapy; Z88.1 Allergy status to other antibiotic agents; Z91.018 Allergy to other foods; Z88.8 Allergy status to other drugs, medicaments and biological substances
CPT/HCPCS: 10880